=== PATIENT | female | born 1995 | race Caucasian/White ===

== ENCOUNTER 2017-06-11 20:21 | Emergency (ER) | payer SELFPAY ==
[2017-06-11 20:22] VITALS: BP 148/85; PULSE 87; RESP 17; TEMP 36.4; O2SAT 99; BMI 23.0
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
--- NOTE | 2017-06-11 21:23 | ED.VISSUMM ---
- ER Visit Summary Date of Service: 06/11/17 Chief Complaint: Left shoulder pain History of Present Illness: The patient is a 22 F who reports intermittent pain in her left shoulder for the past 6 years. She gets a popping sensation. She denies any known injury and denies any known prior dislocations. She denies numbness or pain radiating down her arm. She is right-hand dominant. Patient states she does not have a doctor has not seen anyone for this before. Physical Examination: Vital signs are gross unremarkable. Head neck examination is unremarkable. Heart is regular rate and rhythm. Lung sounds are clear. Left upper extremity examination reveals mild tenderness along the glenohumeral joint itself. She has full range of motion without difficulty. She has strong distal pulses and normal sensation. Test Results: Shoulder x-rays are obtained and unremarkable. Emergency Department Course and Treatment: Patient be referred to orthopedics for follow-up as needed. She may require injections or further imaging. At this time I encouraged her to take Tylenol or ibuprofen [id number]. Treatment Plan: [] Disposition: Discharge Impression: Chronic left shoulder pain This note was generated with [email or web address] dictation software. It may contain incorrect words, spelling, and punctuation that were not noted in review of the chart prior to signing ED Disposition - Plan for ED Patient: Disposition: Home or Assisted Living Chief Complaint: Upper Extremity Injury Instructions: ED Shoulder Pain [facility] Referrals: Buffy Beltre DO [STAFF PHYSICIAN] - As soon as possible
== END 2017-06-11 21:32 | disposition home or self-care (01) ==
PROVIDERS: Emergency Provider Emergency Medicine
DX: M25.512 Pain in left shoulder (principal); G89.29 Other chronic pain; Z72.0 Tobacco use
CPT/HCPCS: 73030; 99282

== ENCOUNTER → 2017-06-21 10:08 | Outpatient (CLI) | payer SELFPAY ==
--- NOTE | 2017-06-21 10:09 | RAD_ITS ---
STUDY: X-RAY - LEFT SHOULDER REASON FOR EXAM: Shoulder pain. TECHNIQUE: A single axillary view of the shoulder. COMPARISON: Radiographs 06/11/2017. FINDINGS: Normal glenohumeral articulation. Normal acromion. Normal humeral head and visualized proximal humerus. The soft tissue structures are unremarkable. RAD/Shoulder min 2 Views IMPRESSION: Normal axillary x-ray examination of the left shoulder. Electronically Signed: Toy Cuevas MD at 10:49 EDT Tel , Service support ,
== END ==
PROVIDERS: Visit Provider Orthopaedic Surgery
DX: M25.512 Pain in left shoulder (principal)
CPT/HCPCS: 73030

== ENCOUNTER 2017-07-21 00:24 | Emergency (ER) | payer SELFPAY ==
[2017-07-21 00:25] VITALS: BP 131/84; PULSE 103; RESP 16; TEMP 36.9; O2SAT 95; BMI 21.9
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
[2017-07-21] MEDS: Acetaminophen 500 MG Tablet 1000 MG PO (01:10)
[2017-07-21] MEDS: Diphth,Pertuss(Acell),Tet Vac 0.5 ML Vial IM (01:10)
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
== END 2017-07-21 02:09 | disposition home or self-care (01) ==
PROVIDERS: Emergency Provider Emergency Medicine
DX: S00.83XA Contusion of other part of head, initial encounter (principal); S00.81XA Abrasion of other part of head, initial encounter; S00.31XA Abrasion of nose, initial encounter; S40.812A Abrasion of left upper arm, initial encounter; S80.812A Abrasion, left lower leg, initial encounter; Z23 Encounter for immunization; Z72.0 Tobacco use; V87.8XXA Person injured in other specified noncollision transport accidents involving motor vehicle (traffic), initial encounter; Y93.I9 Activity, other involving external motion; Y92.89 Other specified places as the place of occurrence of the external cause; Y99.8 Other external cause status
CPT/HCPCS: 70450; 90715; 99282

== ENCOUNTER 2017-07-22 17:20 | Emergency (ER) | payer SELFPAY ==
[2017-07-22 17:21] VITALS: BP 142/79; PULSE 85; RESP 16; TEMP 36.8; O2SAT 97; BMI 22.9
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
--- NOTE | 2017-07-22 19:17 | ED.DEP ---
ED Disposition - Plan for ED Patient: Chief Complaint: Head Injury Instructions: ED Contusion Face, ED Sprain Strain Neck Referrals: Care Physician,No Primary [Primary Care Provider] - Shari Dumas DO [STAFF PHYSICIAN] - 3-5 Days
[2017-07-22 19:22] VITALS: BP 136/76; PULSE 82; RESP 18; O2SAT 99
== END 2017-07-22 19:23 | disposition home or self-care (01) ==
LOC: ED 17:59
PROVIDERS: Emergency Provider Emergency Medicine
DX: S16.1XXD Strain of muscle, fascia and tendon at neck level, subsequent encounter (principal); S00.12XD Contusion of left eyelid and periocular area, subsequent encounter; S00.11XD Contusion of right eyelid and periocular area, subsequent encounter; S09.90XA Unspecified injury of head, initial encounter; Z72.0 Tobacco use; V89.0XXD Person injured in unspecified motor-vehicle accident, nontraffic, subsequent encounter
CPT/HCPCS: 70486; 72040; 99282

== ENCOUNTER 2018-06-24 23:45 | Emergency (ER) | payer OTHER, SELFPAY ==
[2018-06-24 23:46] VITALS: BP 140/88; PULSE 100; RESP 16; TEMP 37.3; BMI 22.1
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
--- NOTE | 2018-06-25 00:31 | ED.DEP ---
ED Disposition - Plan for ED Patient: Disposition: Home or Assisted Living Instructions: ED Fx Foot Referrals: Rich Ellis DO [STAFF PHYSICIAN] - As soon as possible Additional Instructions: Ice and elevate right foot to decrease pain and swelling. Tylenol Motrin for pain. Crutches no weightbearing at this time. Follow-up with orthopedic doctor of your choice.
--- NOTE | 2018-06-25 00:44 | ED.RN ---
PATIENT HAS CRUTCHES AT HOME.
== END 2018-06-25 00:45 | disposition home or self-care (01) ==
PROVIDERS: Emergency Provider Emergency Medicine
DX: S92.354A Nondisplaced fracture of fifth metatarsal bone, right foot, initial encounter for closed fracture (principal); Z72.0 Tobacco use; X58.XXXA Exposure to other specified factors, initial encounter; Y93.01 Activity, walking, marching and hiking; Y92.89 Other specified places as the place of occurrence of the external cause; Y99.8 Other external cause status
CPT/HCPCS: 73630; 99283

== ENCOUNTER 2018-07-04 11:38 | Day surgery (SDC) | payer OTHER, SELFPAY ==
--- NOTE | 2018-06-30 16:50 | RAD_ITS ---
STUDY: X-RAY CHEST REASON FOR EXAM: Female, 23 years old. Pre-op TECHNIQUE: PA and lateral views of the chest. COMPARISON: None. FINDINGS: There is a subtle 3.7 mm nodular density in the left apex. There is no demonstrated pleural abnormality. Normal size heart. Normal mediastinum and gonzález. Normal visualized pulmonary arteries. Normal visualized aortic arch and descending thoracic aorta. Normal visualized thoracic spine. Normal visualized ribs, clavicles, and shoulders. There is no demonstrated abnormality of the visualized soft tissue structures of the upper abdomen. RAD/Chest PA and Lateral IMPRESSION: Little nodular density left apex measuring 3.7 mm. This may represent summation of shadows however recommend follow-up noncontrast chest CT for clarification. Otherwise, No evidence of focal consolidation. Electronically Signed: Tasha Zepeda MD at 16:59 EDT Tel , Service support ,
[2018-07-04 11:52] VITALS: BP 135/84; PULSE 97; RESP 16; TEMP 37.7; O2SAT 100; BMI 21.5
[2018-07-04] MEDS: Cefazolin 2 GM in 0.9% Normal Saline 100 ML IV (12:30)
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
[2018-07-04] MEDS: Bupivacaine Mpf 0.5% 30 ML VIAL (13:30)
[2018-07-04 13:47] VITALS: BP 135/84; BP 141/68; PULSE 77; RESP 16; TEMP 36.8; O2SAT 100
[2018-07-04 14:00] VITALS: BP 116/76; BP 135/84; PULSE 60; RESP 16; O2SAT 100
--- NOTE | 2018-07-04 14:00 | DCINST_ITS ---
Discharge Activity: May Not Drive, May not drive while taking narcotic pain medications., May Not Shower, Use Walker, Use Crutches Ice area for (Minutes): 20 - apply ice behind right knee 20 minutes of each hour while awake Weight Bearing Status: No weight bearing Keep extremity elevated above heart level: Operative Extremity Call your doctor if your incision/area has: Sudden Increased Bleeding Call your doctor if you observe: Fever of 101 or Higher, Shortness of breath, Dizziness, Chest pain, Increased palpitations (irregular heartbeat), Calf discomfort, Uncontrolled pain Cleanse incision/area with: Keep Dressing Clean & Dry Allergies/Adverse Reactions: Allergies No Known Allergies Allergy (Verified 07/03/18 08:38) Medications to take at Discharge traMADol [Ultram] 50 mg PO Q4H PRN PRN 7 Days #28 tab 07/04/18 The following prescriptions were given: traMADol [Ultram] 50 mg PO Q4H PRN PRN 7 Days #28 tab PRN Reason: pain Orders to be completed after discharge: ,Urine Time Frame: 07/04/18, Location: Laboratory Primary Care Physician: Maria Suazo MD [Primary Care Provider] - Please follow up with your Primary Care Physician in: Please follow up with your PCP regarding abnormal result of chest xray Test Results: Test results from this visit will be discussed in further detail at your follow- up appointment, if applicable. Please Follow Up With: Kristi Ramsay DPM - Please follow up at your previously scheduled post operative appointment. Proposed Discharge Date: 07/04/18
--- NOTE | 2018-07-04 14:00 | PCM.OPRPT ---
Report of Operation Date of Procedure: 07/04/18 Pre-Operative Diagnosis: R 5th metatarsal Suazo Fracture Post-Operative Diagnosis: same Surgery/Procedure Performed:: R ORIF 5th metatarsal Suazo fracture Description of Surgical Findings:: see dictation head strength and conditioning coach: Diana Ramos Type of Anesthesia:: General, Local Estimated Blood Loss (mL): minimal Description of Procedure: Indications: Pt is a 23 yo F who sustained a R 5th metatarsal Suazo fracture after twisting her foot on the curb. She presented to my office last week and nonoperative and operative options were discussed with her and her cousin. She elected surgical intervention. We discussed at length the increased risks of post operative complications and overall negative impact to her health is she continues to smoke. All risks, complications, and alternatives were discussed with the patient, and the patient signed an informed consent. No guarantees were given. Procedure: On 07/04/2018, Mya Rubio was visually and verbally identified in the preoperative holding area. The consent form was again reviewed with the patient, as were all risks, complications, and alternatives and the patient wished to proceed with the proposed surgery. The right foot was marked as the correct operative extremity. The patient was brought to the operating room and placed on the operating room table in the lazy lateral position. Circumferential lead apron was placed. After induction by anesthesia, a surgical time out was performed and all present were in agreement. a pneumatic thigh tourniquet was then placed. At this time the right lower extremity was prepped and draped in the usual sterile fashion. after exsanguination with an esmarch the tourniquet was inflated to 300 mmHg. At this time attention was directed to the R lateral midfoot, using intraoperative fluoroscopy the planes of the 5th metatarsal were identified. A stab incision was made and using Cleo's Suazo fracture set, a 5.0 x 42 mm cannulated screw was placed per housekeeper manager guidelines. On intra operative fluoroscopy good compression of the fracture was noted and alignment of the 5th metatarsal was maintained. Temporary guide wire was removed. The stab incision was flushed with normal sterile saline. 3.0 prolene was used for skin closure. 10 cc of 0.5% marcaine plain was injected at the surgical site. Adaptic and dry, sterile dressings were applied to the stab incision. a multilayer compressive dressing and well padded posterior splint was applied. Total tourniquet time was 35 minutes with immediate capillary refill noted to all digits upon deflation. The patient tolerated the procedure and anesthesia well. The patient was then transported to the postanesthesia care unit by a member of the anesthesia team and myself with all vital signs stable and neurovascular status of the right lower extremity equal to pre-operative levels. At the end of the case all sponge, needle and instrument counts were found to be correct. Grafts/Implants Used: [place] 5.0 cannulated screw - Complications none - Admit VTE Documentation VTE Present on Admission: No VTE Mechan Device Prophylaxis: SCD's, Knee High [place] Hose VTE Pharm Prophylaxis ordered?: Yes
[2018-07-04] MEDS: Ketorolac 15 MG/ML Vial IV (14:06)
--- NOTE | 2018-07-04 14:10 | RAD_ITS ---
STUDY: X-RAY - RIGHT FOOT CLINICAL: ORIF of fifth metatarsal fracture. TECHNIQUE: 3 view(s) of the foot. COMPARISON: Radiographs 06/25/2018. FINDINGS: Normal talus, calcaneus, and tarsal bones. Normal visualized subtalar, talonavicular, calcaneocuboid, tarsal and tarsometatarsal articulations. There is an orthopedic screw transfixing a transverse fracture of the fifth metatarsal base in anatomic alignment and position. Normal metatarsophalangeal joint of the great toe. Normal tibial and fibular sesamoid bones. Normal interphalangeal joint of the great toe. There is a nonacute fracture of the medial base of the first distal phalanx with mild adjacent sclerosis. Normal second through fifth metatarsophalangeal joints. Normal interphalangeal joints and phalanges of the lesser toes. There is an overlying cast. RAD/Foot min 3 Views IMPRESSION: ORIF of fifth metatarsal base fracture in anatomic alignment and position. Electronically Signed: Toy Cuevas MD at 15:27 EDT Tel , Service support ,
--- NOTE | 2018-07-04 14:12 | OP.PCM_ITS ---
Report of Operation Date of Procedure: 07/04/18 Pre-Operative Diagnosis: R 5th metatarsal Suazo Fracture Post-Operative Diagnosis: same Surgery/Procedure Performed:: R ORIF 5th metatarsal Suazo fracture Description of Surgical Findings:: see dictation migration specialist: Diana Ramos Type of Anesthesia:: General, Local Estimated Blood Loss (mL): minimal Description of Procedure: Indications: Pt is a 23 yo F who sustained a R 5th metatarsal Suazo fracture after twisting her foot on the curb. She presented to my office last week and nonoperative and operative options were discussed with her and her cousin. She elected surgical intervention. We discussed at length the increased risks of post operative complications and overall negative impact to her health is she continues to smoke. All risks, complications, and alternatives were discussed with the patient, and the patient signed an informed consent. No guarantees were given. Procedure: On 07/04/2018, Mya Rubio was visually and verbally identified in the preoperative holding area. The consent form was again reviewed with the patient, as were all risks, complications, and alternatives and the patient wished to proceed with the proposed surgery. The right foot was marked as the correct operative extremity. The patient was brought to the operating room and placed on the operating room table in the lazy lateral position. Circumferential lead apron was placed. After induction by anesthesia, a surgical time out was performed and all present were in agreement. a pneumatic thigh tourniquet was then placed. At this time the right lower extremity was prepped and draped in the usual sterile fashion. after exsanguination with an esmarch the tourniquet was inflated to 300 mmHg. At this time attention was directed to the R lateral midfoot, using intraoperative fluoroscopy the planes of the 5th metatarsal were identified. A stab incision was made and using Cleo's Suazo fracture set, a 5.0 x 42 mm cannulated screw was placed per nail tech guidelines. On intra operative fluoroscopy good compression of the fracture was noted and alignment of the 5th metatarsal was maintained. Temporary guide wire was removed. The stab incision was flushed with normal sterile saline. 3.0 prolene was used for skin closure. 10 cc of 0.5% marcaine plain was injected at the surgical site. Adaptic and dry, sterile dressings were applied to the stab incision. a multilayer compressive dressing and well padded posterior splint was applied. Total tourniquet time was 35 minutes with immediate capillary refill noted to all digits upon deflation. The patient tolerated the procedure and anesthesia well. The patient was then transported to the postanesthesia care unit by a member of the anesthesia team and myself with all vital signs stable and neurovascular status of the right lower extremity equal to pre-operative levels. At the end of the case all sponge, needle and instrument counts were found to be correct. Grafts/Implants Used: [place] 5.0 cannulated screw - Complications none - Admit VTE Documentation VTE Present on Admission: No VTE Mechan Device Prophylaxis: SCD's, Knee High [place] Hose VTE Pharm Prophylaxis ordered?: Yes
[2018-07-04 14:15] VITALS: BP 132/79; BP 135/84; PULSE 66; RESP 16; TEMP 36.8; O2SAT 100
[2018-07-04 14:52] VITALS: BP 114/67; BP 135/84; PULSE 78; RESP 16; TEMP 36.6; O2SAT 100
== END 2018-07-04 14:59 | disposition home or self-care (01) ==
LOC: SDC 11:38 → AC 11:39
PROVIDERS: Family Provider Family Medicine; PCP Family Medicine; Referring Provider Podiatrist Foot & Ankle Surgery; Visit Provider Podiatrist Foot & Ankle Surgery
PROC: (CPT 28485; principal; 2018-07-04 12:55)
DX: S92.354A Nondisplaced fracture of fifth metatarsal bone, right foot, initial encounter for closed fracture (principal); R03.0 Elevated blood-pressure reading, without diagnosis of hypertension; F17.210 Nicotine dependence, cigarettes, uncomplicated; X50.1XXA Overexertion from prolonged static or awkward postures, initial encounter; Y93.01 Activity, walking, marching and hiking; Y92.480 Sidewalk as the place of occurrence of the external cause; Y99.8 Other external cause status
CPT/HCPCS: 01480; 28485; 71046; 73630; 76000; C1713; J7120; J2405

== ENCOUNTER 2020-01-09 08:41 | Emergency (ER) | payer OTHER, SELFPAY ==
[2020-01-09 08:42] VITALS: BP 150/88; PULSE 90; RESP 17; TEMP 36.7; O2SAT 100; BMI 19.4
[2020-01-09 09:01] VITALS: BP 126/89; O2SAT 100
--- NOTE | 2020-01-09 09:04 | ED.DCSUM_ITS ---
- ER Visit Summary Date of Service: 01/09/20 Chief Complaint: Sent in by nurse practitioner for elevated hemoglobin A1c drawn yesterday. History of Present Illness: The patient is a 24 F past medical history of depression on an antidepressant. No other signet past medical history. No family history of diabetes that the patient is aware of. She does state that she is in increased thirst lately. And urinary frequency without dysuria. She denies any vaginal bleeding or discharge. Last menstrual period was last month. Does not believe she is . States today she did have nausea vomiting x3. No fever or chills. No abdominal pain. No chest pain or shortness of breath. Patient states that her nurse practitioner aaron a hemoglobin A1c on her it was elevated so they sent her to the ER to be evaluated. She denies any family history of diabetes. Physical Examination: Well-appearing young female vital signs stable afebrile. Pulse ox are percent on room air no signs hypoxia. H EENT exam unremarkable. Moist mucous membranes. Neck nontender no lymphadenopathy. Lungs clear to auscultation bilaterally. Heart regular rhythm rate about 90 no murmur. Abdomen soft nontender normal bowel sounds no peritoneal signs. Extremities moves all 4. Calves nontender without edema or cords. Normal motor strength and sensation. Normal range of motion. Back nontender. Skin unremarkable. Neurologically she is awake alert with no focal motor deficits. Test Results: CBC white count 8. Hemoglobin 13. No bands chemistries sodium 131 consistent with elevated blood sugar 434. Normal BUN and creatinine. Normal gap of 4. UA negative except for glucose. No signs of infection. Ketones negative. Initial BG T was 443 after a liter of fluid it was 325. Emergency Department Course and Treatment: Suspect newly diagnosed diabetes. Patient is having polyuria and polydipsia. Screening labs are being obtained along with urinalysis. She will be given a liter of normal saline. After the initial blood sugar patient was also ordered a dose of oral Metformin. Treatment Plan: Metformin twice daily. Glucometer. Follow-up with your primary care provider. Watch her blood sugars closely. Return if feeling worse. Disposition: Discharge Impression: New onset newly diagnosed diabetes Acute hyperglycemia History of depression This note was generated with [employer] software. It may contain incorrect words, spelling, and punctuation that were not noted in review of the chart prior to signing ED Disposition - Plan for ED Patient: Referrals: PodlogarMaria NP, EP[facility] WILLOW SPECIALIST-C [Primary Care Provider] -
[2020-01-09 09:16] LABS: Bedside Glucose 443 mg/dL (70-110)
[2020-01-09] MEDS: 0.9% Normal Saline 1,000 ML 1000 ML IV (09:21)
[2020-01-09 09:32] LABS: Basophil# 0.04 X10^3/uL; Basophil% 0.5 % (0-1); Eosinophil# 0.08 X10^3/uL; Eosinophils% 0.9 % (0-5); Hematocrit 40.3 % (37-47); Hemoglobin 13.5 g/dL (12.0-15.0); Lymphocyte % 21.8 % (19-41); Mean Corp Hgb Conc 33.5 g/dL (32-36); Mean Corpuscular Hgb 28.4 pg (27.0-32.0); Mean Corpuscular Volume 84.8 fL (81-99); Mean Platelet Vol. 11.8 fl (6.2-12.0); NRBC Flagged by Analyzer 0 % (0-5); Neutrophil # 5.98 X10^3/uL (2.7-7.7); Neutrophil % 68.5 % (47-70); POSITIVE MORPHOLOGY YES; Platelet Count 228 K/mm3 (150-450); RBC Distribution Width CV 12.5 % (11.6-14.6); RBC Distribution Width SD 38.7 fl (35.1-43.9); Red Blood Count 4.75 M/mm3 (4.2-5.4); White Blood Count 8.7 K/mm3 (4.4-11.0)
[2020-01-09 09:36] LABS: Differential Indicated SCAN CRITERIA MET
[2020-01-09 09:43] LABS: Anion Gap 4 (5-15); BUN 11 mg/dL (7-18); BUN/Creat Ratio 13.7 RATIO (10-20); Calcium,Total 9.2 mg/dL (8.5-10.1); Chloride 97 mmol/L (98-107); EST Glomerular Filtration Rate 93 mL/min (>60); Est Glom Filt Rate - Afr Amer 112 mL/min (>60); Estimated Creatinine Clearance 82.51 ml/min; Glucose 434 mg/dL (74-106); Potassium 3.6 mmol/L (3.5-5.1); Sodium Level 131 mmol/L (136-145)
[2020-01-09 09:57] LABS: Internal QC Validated? YES +Cl - CLEAR BKGD; Pregnancy, Serum, hCG Quali. NEGATIVE Negative
[2020-01-09 11:04] LABS: Bacteria 0 SEEN /hpf (None Seen); Mucous, Urine 0 SEEN /hpf (<or=2+); Red Blood Cells-Urine 0 SEEN /hpf (0-5); White Blood Cells 0 SEEN /hpf (0-5)
[2020-01-09 11:06] LABS: Bedside Glucose 325 mg/dL (70-110)
[2020-01-09 11:06] LABS: Color, Urine Yellow (Yellow); Glucose, Dipstick 1000 mg/dl (Normal); Ketone-Dipstick 5 mg/dl (Negative); Leukocyte Esterase-Dipstick Negative /ul (Negative); Nitrite-Dipstick Negative (Negative); Occult Blood-Urine Negative /ul (Negative); Protein-Dipstick Negative (Negative); Specific Gravity, Urine 1.005 (1.002-1.030); Urine Bilirubin Dipstick Negative (Negative); Urine Clarity Sl. Cloudy (Clear); Urine Urobilinogen Normal (Normal)
[2020-01-09 11:17] VITALS: BP 114/79; PULSE 64; RESP 14; O2SAT 100
[2020-01-09 11:19] LABS: Squamous Epithelial Cells - UA 0-5 SEEN /hpf (5-10)
--- NOTE | 2020-01-09 11:42 | DCINST.ED_ITS ---
ED Disposition - Plan for ED Patient: Disposition: Home or Assisted Living Instructions: ED Diabetes Overview, ED DIET Diabetic, ED Hyperglycemia New Susp Diabetes Prescriptions: metFORMIN (XR) [Glucophage Xr] 500 mg PO DAILY #30 tab Prescription Printed Referrals: VanialogMaria cisse NP, CREDIT COLLECTIONS ANALYST-C [Primary Care Provider] - Additional Instructions: Rest. It appears that you have have new onset diabetes. You have probably had it for some time and did not realize it. Watch her blood sugars and check them at least 3 times a day. In the morning in the mid afternoon and before bedtime. You will be started on medication Metformin which she can take in the morning you will take it once a day. When you see your primary care provider they may change the medication or change the dosing of it. Currently you only take it once a day.
[2020-01-09] MEDS: metFORMIN (XR) 500 MG Tablet PO (12:13)
[2020-01-09 12:14] VITALS: BP 102/69; PULSE 70; RESP 14; O2SAT 99
== END 2020-01-09 12:26 | disposition home or self-care (01) ==
PROVIDERS: Emergency Provider Emergency Medicine; PCP Nurse Practitioner Primary Care
DX: E11.65 Type 2 diabetes mellitus with hyperglycemia (principal); F17.200 Nicotine dependence, unspecified, uncomplicated
CPT/HCPCS: 80048; 81001; 82009; 82962; 84703; 85025; 96360; 96361; 99284; J7030

== ENCOUNTER 2020-01-14 19:18 | Emergency (ER) | payer OTHER, SELFPAY ==
[2020-01-14 19:20] VITALS: BP 134/72; PULSE 84; RESP 17; TEMP 35.8; O2SAT 100; BMI 19.3
[2020-01-14 19:31] LABS: Bedside Glucose > 500 mg/dL (70-110)
[2020-01-14 19:48] LABS: Absolute Lymphocyte Count 1.97 X10^3/uL (0.83-4.51); Absolute Neutrophil Count 5.7 X10^3/uL (2.0-7.7); Basophil# 0.04 X10^3/uL; Basophil% 0.5 % (0-1); Eosinophil# 0.03 X10^3/uL; Eosinophils% 0.4 % (0-5); Hematocrit 43.2 % (37-47); Lymphocyte # 1.97 X10^3/ul (4.0); Lymphocyte % 23.8 % (19-41); Mean Corp Hgb Conc 32.4 g/dL (32-36); Mean Corpuscular Hgb 28.1 pg (27.0-32.0); Mean Corpuscular Volume 86.7 fL (81-99); Mean Platelet Vol. 11.5 fl (6.2-12.0); Monocyte# 0.51 X10^3/uL; Monocyte% 6.2 % (0-10); NRBC Flagged by Analyzer 0 % (0-5); Neutrophil # 5.71 X10^3/uL (2.7-7.7); Neutrophil % 68.9 % (47-70); POSITIVE MORPHOLOGY YES; Platelet Count 277 K/mm3 (150-450); RBC Distribution Width CV 13.2 % (11.6-14.6); RBC Distribution Width SD 41.7 fl (35.1-43.9); Red Blood Count 4.98 M/mm3 (4.2-5.4); White Blood Count 8.3 K/mm3 (4.4-11.0)
[2020-01-14 19:57] LABS: Bacteria 0 SEEN /hpf (None Seen); Mucous, Urine 0 SEEN /hpf (<or=2+); Red Blood Cells-Urine 0 SEEN /hpf (0-5); White Blood Cells 0 SEEN /hpf (0-5)
[2020-01-14 20:02] LABS: Color, Urine Yellow (Yellow); Glucose, Dipstick 1000 mg/dl (Normal); Ketone-Dipstick Negative (Negative); Leukocyte Esterase-Dipstick Negative /ul (Negative); Nitrite-Dipstick Negative (Negative); Occult Blood-Urine Negative /ul (Negative); Protein-Dipstick 15 mg/dl (Negative); Urine Bilirubin Dipstick Negative (Negative); Urine Clarity Sl. Cloudy (Clear); Urine Urobilinogen Normal (Normal); Urine pH 6.5 (5.0 - 8.0)
[2020-01-14 20:04] LABS: Differential Indicated SCAN CRITERIA MET
[2020-01-14] MEDS: 0.9% Normal Saline 1,000 ML 999 ML IV ×2 (20:13→20:25)
[2020-01-14 20:26] LABS: ALB/GLOB Ratio 1.1 RATIO (0.9-2.4); AST(SGOT) 9 U/L (15-37); Alanine Aminotransfer ALT/SGPT 18 U/L (13-56); Albumin, Serum 4.2 g/dL (3.2-5.0); Alkaline Phosphatase 151 U/L (45-117); Anion Gap 6 (5-15); BUN 15 mg/dL (7-18); BUN/Creat Ratio 15.7 RATIO (10-20); Calcium,Total 9.4 mg/dL (8.5-10.1); Chloride 99 mmol/L (98-107); Creatinine, Serum 0.96 mg/dL (0.55-1.02); EST Glomerular Filtration Rate 76 mL/min (>60); Est Glom Filt Rate - Afr Amer 92 mL/min (>60); Estimated Creatinine Clearance 68.61 ml/min; Globulin 3.9 g/dL (2.2-4.2); Glucose 596 mg/dL (74-106); Potassium 4.2 mmol/L (3.5-5.1); Protein, Total 8.1 g/dL (6.4-8.2); Sodium Level 133 mmol/L (136-145)
[2020-01-14 20:27] LABS: Squamous Epithelial Cells - UA 0-5 SEEN /hpf (5-10)
--- NOTE | 2020-01-14 20:27 | ED.DCSUM_ITS ---
History of Present Illness Chief Complaint: Hyperglycemia Informant: Patient Onset: Days Context: Gradual Onset Timing: Continuous Current Severity: Moderate Maximum Severity: Moderate Narrative: The patient is a 24-year-old female who presents to the emergency department for elevated blood sugar. The patient was recently diagnosed with diabetes. She was just started on insulin. She states that she takes 14 units at night. She states when she wakes up, her blood sugar is in the 100 range. However, throughout the day when she is eating, her blood sugar just reads high. She does admit to increased thirst and urination. She denies any fevers or chills. This is the first time that she has been testing her blood sugar. She states she is otherwise been in her normal state of health. Prior similar symptoms: Yes Recent Illness/Hospitalization: No Past Medical History - Allergies and Home Meds Allergies/Adverse Reactions: Allergies No Known Allergies Allergy (Verified 01/14/20 19:19) Primary Care Physician: Maria Raygoza NP, REVERSE ENGINEER-C [Primary Care Provider] - Prior records reviewed: Yes Past Medical History: - - Diabetes Surgical History: noncontributory Smoking Status: Current every day smoker Review of Systems General: Denies: Chills, Fever, Sweats Eyes: Denies: Visual changes - bilaterally, Diplopia ENT: Denies: Rhinorrhea, Sore throat Cardiovascular: Denies: Chest pain, Palpitations Respiratory: Denies: Dyspnea, Cough, Dyspnea on exertion Gastrointestinal: Reports: Nausea. Denies: Abdominal pain, Vomiting, Diarrhea, Melena, Hematochezia Genitourinary: Denies: Dysuria, Hematuria, Frequency Musculoskeletal: Denies: Back pain, Extremity Pain Skin: Denies: Rash, Wounds Neurological: Denies: Headache, Weakness, Numbness Physical Exam Vital Signs/Narrative: Vital Signs Temp Pulse Resp BP Pulse Ox 01/14/20 19:20 96.5 F L 84 17 134/72 H 100 Inital Vital Signs reviewed: Yes General: Well nourished, Well developed, No Acute Distress Head: Normocephalic, Atraumatic Eyes: Perrl, EOMI ENT: Moist mucous membranes, No rhinorrhea Neck: Supple, Nontender Cardiovascular: Regular rate, Regular rhythm, No murmurs Respiratory: No distress, CTA bilaterally, Chest nontender Abdomen: Soft, Nontender, Nondistended, Normal bowel sounds Back: Nontender, Normal Inspection Extremities: Nontender, No edema Skin: Normal color, No rash Neurological: Alert, Oriented x3, Cranial nerves II-XII grossly intact, Normal Strength, Normal Sensation Psychological: Normal affect, Normal Mood Diagnostic/Tx/Re-eval Abnormal Lab Results 01/14/20 01/14/20 01/14/20 19:26 19:40 19:40 WBC 8.3 RBC 4.98 Hgb 14.0 Hct 43.2 MCV 86.7 MCH 28.1 MCHC 32.4 RDW Std Deviation 41.7 RDW Coeff of Radha 13.2 Plt Count 277 MPV 11.5 Immature Gran % (Auto) 0.200 Neut % (Auto) 68.9 Lymph % (Auto) 23.8 [place] % (Auto) 6.2 Eos % (Auto) 0.4 Baso % (Auto) 0.5 Absolute Neuts (auto) 5.7 Absolute Lymphs (auto) 1.97 Nucleated RBC % 0 Sodium 133 L Potassium 4.2 Chloride 99 Carbon Dioxide 28.0 Anion Gap 6 BUN 15 Creatinine 0.96 Estim Creat Clear Calc 68.61 Est GFR (MDRD) Af Amer 92 Est GFR (MDRD) Non-Af 76 BUN/Creatinine Ratio 15.7 Glucose 596 H* Calcium 9.4 Total Bilirubin 0.20 AST 9 L ALT 18 Alkaline Phosphatase 151 H Total Protein 8.1 Albumin 4.2 Globulin 3.9 Albumin/Globulin Ratio 1.1 Urine Color Urine Clarity Urine pH Ur Specific [place] Urine Protein Urine Glucose (UA) Urine Ketones Urine Occult Blood Urine Nitrite Urine Bilirubin Urine Urobilinogen Ur Leukocyte Esterase Urine RBC Urine WBC Ur Squamous Epith Cells Urine Bacteria Urine Mucus Acetone Level POC Glucose > 500 H* 01/14/20 01/14/20 19:40 19:46 WBC RBC Hgb Hct MCV MCH MCHC RDW Std Deviation RDW Coeff of Radha Plt Count MPV Immature Gran % (Auto) Neut % (Auto) Lymph % (Auto) [place] % (Auto) Eos % (Auto) Baso % (Auto) Absolute Neuts (auto) Absolute Lymphs (auto) Nucleated RBC % Sodium Potassium Chloride Carbon Dioxide Anion Gap BUN Creatinine Estim Creat Clear Calc Est GFR (MDRD) Af Amer Est GFR (MDRD) Non-Af BUN/Creatinine Ratio Glucose Calcium Total Bilirubin AST ALT Alkaline Phosphatase Total Protein Albumin Globulin Albumin/Globulin Ratio Urine Color Yellow Urine Clarity Sl. Cloudy Urine pH 6.5 Ur Specific [place] 1.010 Urine Protein 15 H Urine Glucose (UA) 1000 H Urine Ketones Negative Urine Occult Blood Negative Urine Nitrite Negative Urine Bilirubin Negative Urine Urobilinogen Normal Ur Leukocyte Esterase Negative Urine RBC 0 SEEN Urine WBC 0 SEEN Ur Squamous Epith Cells 0-5 SEEN Urine Bacteria 0 SEEN Urine Mucus 0 SEEN Acetone Level NEGATIVE POC Glucose - Medical Decision Making The patient presents with elevated blood sugar. She states in the morning, it is in the 100-1 50 range. However throughout the day, to 400-500. Blood sugar was obtained and read high. DKA work-up was pursued. Patient is hyperglycemic, but has a normal anion gap, no ketones, and work-up is otherwise unremarkable. I did discuss the patient with Dr. Sierra, on-call for the patient's nurse practitioner. The patient will be restarted on her Metformin. She is likely going to need to do different insulin, but Dr. Sierra recommended increasing her Metformin for the time being. The patient was given subcutaneous insulin and fluids. Once her blood sugar is back to normal, the patient will be discharged and will be seen in the office tomorrow for insulin management. Impression 1. Hyperglycemia ED Disposition - Plan for ED Patient: Instructions: ED Diabetic Hyperglycemia Referrals: Maria Raygoza NP, REVERSE ENGINEER-C [Primary Care Provider] - 1 Day Additional Instructions: Please resume your Metformin.
[2020-01-14] MEDS: Insulin Lispro 100 UNIT/ML INSULN.PEN 10 UNIT SC (21:10)
[2020-01-14 22:15] LABS: Bedside Glucose 118 mg/dL (70-110)
== END 2020-01-14 22:31 | disposition home or self-care (01) ==
LOC: ED 20:24
PROVIDERS: Emergency Provider Emergency Medicine; PCP Nurse Practitioner Primary Care
DX: E11.65 Type 2 diabetes mellitus with hyperglycemia (principal); F17.200 Nicotine dependence, unspecified, uncomplicated; Z79.4 Long term (current) use of insulin
CPT/HCPCS: 80053; 81001; 82009; 82962; 85025; 96360; 99283; J7030; A4216

== ENCOUNTER → 2023-02-21 | Outpatient (CLI) | payer MEDICAID, SELFPAY ==
[2023-02-21 10:05] LABS: Absolute Lymphocyte Count 1.56 X10^3/uL (0.83-4.51); Absolute Neutrophil Count 8.4 X10^3/uL (2.0-7.7); Basophil# 0.04 X10^3/uL; Basophil% 0.4 % (0-1); Eosinophil# 0.03 X10^3/uL; Eosinophils% 0.3 % (0-5); Hematocrit 37.6 % (37-47); Lymphocyte # 1.56 X10^3/ul (0.83-4.51); Lymphocyte % 14.6 % (19-41); Mean Corp Hgb Conc 34.6 g/dL (32-36); Mean Corpuscular Hgb 30.4 pg (27.0-32.0); Mean Corpuscular Volume 88.1 fL (81-99); Mean Platelet Vol. 10.6 fl (6.2-12.0); Monocyte# 0.59 X10^3/uL; Monocyte% 5.5 % (0-10); NRBC Flagged by Analyzer 0 % (0-5); Neutrophil # 8.43 X10^3/uL (2.7-7.7); Neutrophil % 78.8 % (47-70); Platelet Count 298 K/mm3 (150-450); Red Blood Count 4.27 M/mm3 (4.2-5.4); White Blood Count 10.7 K/mm3 (4.4-11.0)
[2023-02-21 10:42] LABS: ALB/GLOB Ratio 1.1 RATIO (0.9-2.4); AST(SGOT) 13 U/L (15-37); Alanine Aminotransfer ALT/SGPT 22 U/L (13-56); Albumin, Serum 3.9 g/dL (3.2-5.0); Alkaline Phosphatase 64 U/L (45-117); Anion Gap 7 (5-15); BUN 11 mg/dL (7-18); BUN/Creat Ratio 17.4 RATIO (10-20); Calcium,Total 9.1 mg/dL (8.5-10.1); Chloride 103 mmol/L (98-107); Creatinine, Serum 0.63 mg/dL (0.55-1.02); EST Glomerular Filtration Rate 119 mL/min (>60); Est Glom Filt Rate - Afr Amer 144 mL/min (>60); Globulin 3.4 g/dL (2.2-4.2); Glucose 118 mg/dL (74-106); Protein, Total 7.3 g/dL (6.4-8.2); Sodium Level 136 mmol/L (136-145); T4 Free Direct 0.95 ng/dL (0.76-1.46); Thyroid Stim Hormone (TSH) 1.18 uIU/mL (0.358-3.74)
[2023-02-21 10:44] LABS: Hemoglobin A1c 7.7 % (3.8-5.6)
[2023-02-21 11:12] LABS: HIV - WCH Non-Reactive (Nonreactive); Hepatitis B Surface Antigen Non-Reactive (Nonreactive); Hepatitis C Antibody Non-Reactive (Nonreactive); Rubella IgG Reactive (Nonreactive); Syphilis Antibodies Non-reactive
[2023-02-21 13:56] LABS: Protein, Urine (Random) 9.8 mg/dL (<11.9); Protein:Creat Ratio 170 mg/g CRE (0-200)
[2023-02-23 07:08] LABS: Chlamydia By Nucleic Acid AMP Negative (Negative); Gonococcus By Nucleic Acid AMP Negative (Negative)
[2023-02-25 22:24] LABS: HPV Reflexed? NOT INDICATED
== END | disposition home or self-care (01) ==
PROVIDERS: PCP Nurse Practitioner Primary Care; Referring Provider Obstetrics & Gynecology; Visit Provider Obstetrics & Gynecology
DX: O24.019 Pre-existing type 1 diabetes mellitus, in pregnancy, unspecified trimester (principal); O16.9 Unspecified maternal hypertension, unspecified trimester; Z12.4 Encounter for screening for malignant neoplasm of cervix; Z3A.00 Weeks of gestation of pregnancy not specified
CPT/HCPCS: 36415; 80053; 82570; 83036; 84156; 84439; 84443; 85025; 86703; 86762; 86780; 86803; 86850; 86900; 86901; 87086; 87340; 87491; 87591; 88175; G0145

== ENCOUNTER 2023-03-14 07:46 | Emergency (ER) | payer MEDICAID, SELFPAY ==
[2023-03-14 07:47] VITALS: BP 148/99; PULSE 96; RESP 16; TEMP 36.7; O2SAT 100; BMI 24.1
--- NOTE | 2023-03-14 08:13 | US_ITS ---
STUDY: FIRST TRIMESTER OBSTETRICAL ULTRASOUND REASON FOR EXAM: Female, 27 years old. . Bleeding. LMP: 12/16/2022 TECHNIQUE: Transabdominal scanning was performed PRIOR ULTRASOUND: None. FINDINGS: There is visualization of a single gestational sac in a normal intrauterine position. There is a visualized yolk sac. There is visualization of a live embryo. The crown-rump length (CRL) measures 5.6 cm, indicating an estimated gestational age (EGA) of 12 weeks, 1 days. The gestational sac corresponds to 11 weeks and 3 days. The sonographic age is 11 weeks and 6 days. The estimated delivery date is 09/27/2023. There is demonstrated cardiac activity with a heart rate of 166 bpm. The uterus measures 14.8 x 10.0 x 8.2 cm. There is no demonstrated uterine fibroid. The cervix is closed. The right ovary is not visualized. The left ovary measures 2.6 x 2.5 x 1.5 cm. There is no left ovarian cyst. There is no visualized left adnexal mass or complex lesion. There is no fluid in the cul de sac. US/Init OB < 14Wks US IMPRESSION: Single live intrauterine gestation, as described above. Electronically Signed: Monster Younger MD at 10:05 [facility] ,
[2023-03-14 08:48] LABS: Absolute Lymphocyte Count 1.53 X10^3/uL (0.83-4.51); Absolute Neutrophil Count 7.2 X10^3/uL (2.0-7.7); Basophil# 0.03 X10^3/uL; Basophil% 0.3 % (0-1); Eosinophil# 0.02 X10^3/uL; Eosinophils% 0.2 % (0-5); Hematocrit 40.1 % (37-47); Hemoglobin 13.7 g/dL (12.0-15.0); Lymphocyte # 1.53 X10^3/ul (0.83-4.51); Lymphocyte % 16.6 % (19-41); Mean Corp Hgb Conc 34.2 g/dL (32-36); Mean Corpuscular Hgb 29.4 pg (27.0-32.0); Mean Corpuscular Volume 86.1 fL (81-99); Mean Platelet Vol. 10.8 fl (6.2-12.0); Monocyte# 0.39 X10^3/uL; Monocyte% 4.2 % (0-10); NRBC Flagged by Analyzer 0 % (0-5); Neutrophil # 7.22 X10^3/uL (2.7-7.7); Neutrophil % 78.4 % (47-70); Platelet Count 228 K/mm3 (150-450); RBC Distribution Width CV 12.9 % (11.6-14.6); RBC Distribution Width SD 40.5 fl (35.1-43.9); Red Blood Count 4.66 M/mm3 (4.2-5.4); White Blood Count 9.2 K/mm3 (4.4-11.0)
--- NOTE | 2023-03-14 09:13 | EDS_ITS ---
HPI HPI - Female History of Present Illness Chief Complaint: Vag Bld, Preg Detail of Chief Complaint: Vaginal bleeding that started at 2 AM Informant: patient, spouse/S.O. and family Pain Pain: Negative for Pelvic Pain, Vulvar Pain or Vaginal Pain Bleeding Issue: Positive for Vaginal bleeding and Passing clots Onset: Today (0200) Context: Sudden Onset Timing: Continuous Current Severity: Heavy Maximum Severity: Heavy Associated Symptoms Associated Symptoms: Negative for Dysuria, Frequency, Urgency or Hematuria Test: Positive Sexually: Positive for Active Control: No control P: 0 Narrative Narrative: Patient is a 27-year-old G1, P0 female who was seen by Dr. Sho Justice February 21. She had an ultrasound at that time which revealed a single live intrauterine . Patient does not know blood type. Patient states she awoke with vaginal bleeding at 0200. She has passed clots. She did pass a very large clot. Patient took a picture of the clot and it was significant. She is concerned she had a miscarriage. She denies bruising easily or problems with bleeding. She denies lightheadedness. She denies headache, visual, ocular auditory symptoms. She denies chest pain, shortness of breath, dyspnea on exertion. She denies abdominal pain, nausea, vomiting or diarrhea. There is no history of STI, endometriosis or ovarian cyst. Prior similar symptoms: No Recent Illness/Hospitalization: No PFSH PFSH Medical History Diabetes type I Fracture of right foot Fracture of right wrist Hypertension Insulin pump titration Presence of insulin pump Smoker Trichomonas infection Home Medications vitamins no.163-iron bis-gly 20 mg-folate no.10 1 mg tablet (PNV Tabs 20-1) tab PO 02/18/23 [History Last Taken Unknown] subcutaneous insulin pump 02/18/23 [History Last Taken Unknown] nicotine 14 mg/24 hr daily transdermal patch 1 patch transdermal Q24H #28 ea 02/21/23 [Rx Last Taken Unknown] insulin aspart U-100 100 unit/mL subcutaneous solution (Novolog U-100 Insulin aspart) 100 unit subcut DAILY #30 mL 02/22/23 [Rx Last Taken Unknown] Allergy/AdvReac Type Severity Reaction Status Date / Time No Known Allergies Allergy Verified 03/14/23 07:47 Family History Grandmother Thyroid disorder maternal Aunt Stillbirth maternal Social History adopted: No household members: friend(s) current occupational status: employed 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 pets and animals: Yes pets and animals: dog(s) history of recent travel: No sexually active: Yes Smoking Status: Current every day smoker tobacco type: cigarettes quit status: considering quitting counseling given: counseling >3 minutes alcohol intake: never substance use type: does not use well-balanced diet: daily or most days caffeine: No eating out: rarely or never during the past year weight has: remained stable what type of physical activity do you participate in: none pinky/mandaeism: None seatbelt use: sometimes do you feel safe at home: Yes additional social history: NO SIGNIFICANT OTHER, FOB will be involved in baby's life. Laci CARVALHO ROS ED Constitutional Constitutional ED: Denies chills, fever(s), subjective or sweats Eyes Eyes: Denies blurry vision, change in vision or diplopia ENT ENT ED: Denies ear pain, rhinorrhea or sore throat Cardiovascular Cardiovascular: Denies chest pain, orthopnea, palpitations, paroxysmal nocturnal dyspnea or racing heartbeat Respiratory/Chest Respiratory/Chest: Denies cough, dyspnea, dyspnea on exertion, orthopnea or paroxysmal nocturnal dyspnea Gastrointestinal Gastrointestinal: Denies abdominal pain, nausea or vomiting Genitourinary Genitourinary ED: Denies dysuria, hematuria or urinary frequency Musculoskeletal Musculoskeletal: Denies arthralgias, myalgias or neck pain Integumentary Denies rash Neurologic Neurologic: Denies weakness Psychiatric Psychiatric: Reports anxiety Endocrine Endocrinology: Denies heat intolerance, polydipsia or polyuria Hematologic/Lymphatic Hematologic/Lymphatic: Denies easy bleeding or easy bruising EXAM Physical Exam Const Vital Signs: 03/14/23 07:47 Temperature 98.1 F Temperature Source Temporal Pulse Rate 96 Respiratory Rate 16 Blood Pressure 148/99 H Blood Pressure Mean 115 Pulse Ox 100 Oxygen Delivery Method Room Air Positive well nourished and well developed Constitutional Narrative: Patient appears slightly upset. General Appearance ED: well developed and NAD; Negative for pallor HEENT Reports moist mucous membranes HEENT Narrative: Head is atraumatic and normocephalic. Nares are patent. Posterior pharynx is normal. Patient does have tobacco odor to her breath. Eyes PERRL and EOMs intact bilaterally General Eye ED: Negative for pale conjunctiva or scleral icterus Neck no lymphadenopathy, supple and no JVD Chest Wall inspection of chest normal and palpation of chest normal Resp normal respiratory effort and clear to auscultation bilaterally Cardio regular rate, regular rhythm, S1 normal heart sound, no murmurs and no JVD GI normal to inspection, nondistended, normoactive bowel sounds, soft to palpation, non-tender and non-distended Narrative: External genitalia normal. There is approximately 5-10 cc of blood in the vaginal vault. There appears to be tissue noted from the os. Bimanual exam reveals uterus to be 12 to 14 weeks size which is consistent with dates. External os is open to fingertip. Os does not have appearance of a nonparous cervix. There is no adnexal masses or tenderness noted. Extremity normal to inspection and full ROM Neuro oriented x3, CN's II-XII intact bilaterally and no sensory deficits noted Sensorium / Orientation: alert Psych Mood & Affect: anxious Skin no rashes or lesions noted and no wounds General Skin Exam: Negative for jaundice or pallor MDM MDM MDM Narrative Medical decision making narrative: Differential diagnosis is threatened AB versus incomplete AB versus complete AB. In light of findings on pelvic exam suspect patient has an incomplete AB. Since she does not know blood type ABO Rh was obtained. CBC was obtained for baseline H&H. Transvaginal ultrasound was ordered. Patient was made NPO. Lab Data Attestation: I reviewed the patient's lab results. Lab results narrative: CBC is normal. Labs: Laboratory Results - last 24 hr 03/14/23 08:40 WBC 9.2 RBC 4.66 Hgb 13.7 Hct 40.1 MCV 86.1 MCH 29.4 MCHC 34.2 RDW Std Deviation 40.5 RDW Coeff of Radha 12.9 Plt Count 228 MPV 10.8 Immature Gran % (Auto) 0.300 Neut % (Auto) 78.4 H Lymph % (Auto) 16.6 L [place] % (Auto) 4.2 Eos % (Auto) 0.2 Baso % (Auto) 0.3 Absolute Neuts (auto) 7.2 Absolute Lymphs (auto) 1.53 Nucleated RBC % 0 HCG, Quant 09380 H Blood Type B POSITIVE Radiography Diagnostic Testing: Clinical Impression(s) from Imaging Studies Obstetrics Ultrasound 03/14/23 08:13 IMPRESSION: Single live intrauterine gestation, as described above. Electronically Signed: Monster Younger MD at 10:05 EST Reading Location ID and State: [facility] / [place] Tel , Service support , Management Discussion w/another healthcare provider: Office Machine Servicer Apprentice (Dr. Justice was contacted regarding patient's history physical findings and ultrasound results. She is to call office tomorrow to be seen later this week.) Discharge Plan Triage Chief Complaint: Vag Bld, Preg ED Provider: Americo Greer Dx/Rx/DC Orders Clinical Impression: Miscarriage, threatened, early , Diabetes type I, Hypertension, Vaginal bleeding affecting early Instructions: ED Abdominal Pain, Early , Miscarriage Threatened Prescriptions: No Action (DME) subcutaneous insulin pump Misc See Rx Instructions .Route Rx Instructions: As directed PNV Tabs 20-1 20 mg iron- 1 mg tablet PO nicotine 14 mg/24 hr patch 24 hour 1 patch transdermal Q24H Qty: 28 1RF insulin aspart U-100 [Novolog U-100 Insulin aspart] 100 unit/mL solution 100 unit subcut DAILY Qty: 30 8RF Primary Care Provider: Maria Raygoza NP Referrals: Sho Michaud DO [Med Staff - Active Staff] - As soon as possible Maria Raygoza NP, INDUSTRIAL EDUCATION INSTRUCTOR-C [Primary Care Provider] - Disposition Disposition: Home, Self Care
[2023-03-14 11:40] VITALS: BP 130/74; PULSE 88; RESP 16; O2SAT 99
== END 2023-03-14 11:41 | disposition home or self-care (01) ==
PROVIDERS: Emergency Provider Emergency Medicine; PCP Nurse Practitioner Primary Care; Visit Provider Emergency Medicine
DX: O20.0 Threatened abortion (principal); E10.9 Type 1 diabetes mellitus without complications; O24.911 Unspecified diabetes mellitus in pregnancy, first trimester; O16.1 Unspecified maternal hypertension, first trimester; O99.331 Smoking (tobacco) complicating pregnancy, first trimester; F17.210 Nicotine dependence, cigarettes, uncomplicated; Z96.41 Presence of insulin pump (external) (internal); Z3A.00 Weeks of gestation of pregnancy not specified
CPT/HCPCS: 76801; 84702; 85025; 86900; 86901; 99284

== ENCOUNTER 2023-03-25 18:41 | Emergency (ER) | payer MEDICAID, SELFPAY ==
[2023-03-25 18:41] VITALS: BP 157/95; PULSE 110; RESP 20; TEMP 36.6; O2SAT 100; BMI 24.8
--- NOTE | 2023-03-25 18:58 | ED.RN ---
THIS RN CONTACTED PT MAIL SUPERINTENDENT OB PROVIDER. SPOKE WITH BELKIS HINDS. BELKIS INFORMED OF REASON FOR PATIENTS VISIT AND CONCERN FOR DROPPING BLOOD GLUCOSE FOR MOM AND BABY. PER BELKIS, IT WOULD BE RECOMMENDED TO TAKE HEART TONES 1 EVERY HOUR WHILE UNDER OBSERVATION.
[2023-03-25] MEDS: Dextrose 50%-Water 25 GM/50 ML DISP.SYRIN IV ×5 (19:14→22:44)
[2023-03-25 19:41] VITALS: RESP 16
--- OUTSIDE RECORDS SUMMARY | 2023-03-25 19:55 | XMS RPT_ITS | CCD ---
Demographics Address [address] [place] [address] Home Phone Mobile Phone Preferred Language en Marital Status Orthodox Affiliation Unknown
[2023-03-25 20:00] VITALS: RESP 16
--- NOTE | 2023-03-25 20:40 | ED.RN ---
pt given sandwich and drink at this time.
[2023-03-25 20:52] LABS: Bedside Glucose 96 mg/dL (74-106)
[2023-03-25 21:00] VITALS: BP 134/99
--- NOTE | 2023-03-25 21:04 | ED.RN ---
BS noted to be 74 after eating at this time.
--- NOTE | 2023-03-25 21:05 | ED.RN ---
verbal order from Dr Murillo to give another 12.5 mg of d50w. this rn asks if it would be appropriate for a drip of d5w and dr. murillo declines. will continue to monitor
[2023-03-25 21:17] LABS: Bedside Glucose 74 mg/dL (74-106)
--- NOTE | 2023-03-25 21:41 | ED.RN ---
blood glucose noted to be 77 after 1/[address] murillo notified and new order obtained for the other half of the d50w.
[2023-03-25 21:58] LABS: Bedside Glucose 77 mg/dL (74-106)
[2023-03-25 22:00] VITALS: BP 138/84; PULSE 94; RESP 16; O2SAT 97
[2023-03-25 22:31] LABS: Bedside Glucose 75 mg/dL (74-106)
[2023-03-25 22:57] LABS: Bedside Glucose 54 mg/dL (74-106)
[2023-03-25 23:00] VITALS: RESP 16
[2023-03-25 23:21] LABS: Bedside Glucose 124 mg/dL (74-106)
--- NOTE | 2023-03-25 23:26 | EX.ED.DYSGE1 ---
HPI History of Present Illness Chief Complaint: Overdose Informant: patient Narrative Narrative: Patient is 27-year-old female currently 14 weeks , G1, P0 with history of type 1 diabetes mellitus presenting for accidental insulin overdose. Patient's pump recently broke/malfunction and she had to start using subcu insulin. Since her blood sugar was around 350 so she tried to give her self 10 units of insulin aspart. She states she was not paying attention and actually gave herself 60 units. Patient states this happened at 6 PM. She then came to the ER for further evaluation. She denies any complaints at this time. She was in her usual state of health before this. She states this was an accidental overdose of her insulin. She follows with [facility]. Denies any vaginal bleeding or complaints. No other complaints or concerns at this time. [facility] Medical History Diabetes type I Fracture of right foot Fracture of right wrist Hypertension Insulin pump titration Myopia of both eyes Presence of insulin pump Smoker Trichomonas infection Home Medications vitamins no.163-iron bis-gly 20 mg-folate no.10 1 mg tablet (PNV Tabs 20-1) tab PO 02/18/23 [History Last Taken Unknown] subcutaneous insulin pump 02/18/23 [History Last Taken Unknown] nicotine 14 mg/24 hr daily transdermal patch 1 patch transdermal Q24H #28 ea 02/21/23 [Rx Last Taken Unknown] insulin aspart U-100 100 unit/mL subcutaneous solution (Novolog U-100 Insulin aspart) 100 unit subcut DAILY #30 mL 02/22/23 [Rx Last Taken Unknown] Allergy/AdvReac Type Severity Reaction Status Date / Time No Known Allergies Allergy Verified 03/25/23 10:08 Family History Grandmother Thyroid disorder maternal Aunt Stillbirth maternal Social History adopted: No household members: friend(s) current occupational status: employed 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 pets and animals: Yes pets and animals: dog(s) history of recent travel: No sexually active: Yes Smoking Status: Current every day smoker tobacco type: cigarettes quit status: considering quitting counseling given: counseling >3 minutes alcohol intake: never substance use type: does not use well-balanced diet: daily or most days caffeine: No eating out: rarely or never during the past year weight has: remained stable what type of physical activity do you participate in: none pinky/roman catholic: None seatbelt use: sometimes do you feel safe at home: Yes additional social history: NO SIGNIFICANT OTHER, FOB will be involved in baby's life. Laci Cantrell ROS ROS ED Constitutional Constitutional ED: Denies chills or fever(s) Cardiovascular Cardiovascular: Denies chest pain Respiratory/Chest Respiratory/Chest: Denies cough Gastrointestinal Gastrointestinal: Denies nausea or vomiting Musculoskeletal Musculoskeletal: Denies arthralgias or myalgias Integumentary Denies rash Neurologic Neurologic: Denies headache(s) EXAM Physical Exam Const Vital Signs: 03/25/23 18:41 03/25/23 18:45 03/25/23 19:41 Temperature 97.8 F Temperature Source Temporal Pulse Rate 110 H Respiratory Rate 20 H 16 Respiratory Effort Normal Non-Labored Respiratory Pattern Normal Blood Pressure 157/95 H Blood Pressure Mean 115 Pulse Ox 100 Oxygen Delivery Method Room Air 03/25/23 20:00 03/25/23 21:00 03/25/23 22:00 Temperature Temperature Source Pulse Rate 94 Respiratory Rate 16 16 Respiratory Effort Respiratory Pattern Blood Pressure 134/99 H 138/84 H Blood Pressure Mean 110 102 Pulse Ox 97 Oxygen Delivery Method Room Air 03/25/23 23:00 03/26/23 00:00 Temperature Temperature Source Pulse Rate Respiratory Rate 16 18 Respiratory Effort Respiratory Pattern Blood Pressure Blood Pressure Mean Pulse Ox Oxygen Delivery Method Positive well nourished and well developed General Appearance ED: well developed and NAD HEENT Reports moist mucous membranes Eyes PERRL Neck supple Chest Wall inspection of chest normal and palpation of chest normal Resp normal respiratory effort and clear to auscultation bilaterally Cardio regular rate, regular rhythm and no murmurs GI normal to inspection, nondistended, normoactive bowel sounds and non-tender Extremity normal to inspection Neuro oriented x3 Sensorium / Orientation: alert Motor Exam: Negative for general weakness Psych mental status grossly normal Skin no rashes or lesions noted and no wounds MDM MDM MDM Narrative Medical decision making narrative: Evaluated for accidental insulin overdose. Does have taking 10 units of insulin aspart checks and took 60 units subcu. Nursing staff spoke with OB as she is 14 weeks . They recommended heart tones every hour but no other recommendations at this time besides monitoring the mother's glucose. Initial heart tones 152 in the ER. Patient not having any symptoms at this time. Blood sugar does not drop and she is given multiple aliquots of D50. Spoke with pharmacy who confirmed that peak onset is 45 to 50 minutes from time of injection and duration is 3 to 5 hours. Will monitor patient's till midnight which is the 5-hour eleno and as long as her blood sugar remained stable after that point can be discharged home. Patient is otherwise asymptomatic and has no complaints. She is eating and drinking in the ER. Patient does require multiple aliquots of D50 at 12.5 mg while in the emergency room to maintain her blood sugar. She remains asymptomatic except for the one time her blood sugar dropped to 54. Because of the short half-life I do not think she requires admission for greater than 24 hours of monitoring. At the 5-hour eleno patient's blood sugar is now mildly uptrending and stable. Will be discharged home with return precautions. She is comfortable this plan of care. Counseled on making sure that she is using the right amount of insulin. She verbalizes agreement nursing of this plan. Discharged home with significant other. Lab Data Attestation: I reviewed the patient's lab results. Labs: Laboratory Results - last 24 hr 03/25/23 03/25/23 03/25/23 20:34 20:59 21:36 POC Glucose 96 74 77 03/25/23 03/25/23 03/25/23 22:13 22:39 23:03 POC Glucose 75 54 L 124 H 03/25/23 03/25/23 03/26/23 23:26 23:58 00:27 POC Glucose 95 113 H 163 H Critical Care Time Critical Care Time: Yes Critical care time (excluding procedures): 30-74 minutes (35), Discussing w/Patient &/or Family/Applications Specialist and Performing Direct Patient Care at Bedside (Frequent blood glucose checks and intervention for hypoglycemia) Discharge Plan Triage Chief Complaint: Overdose ED Provider: Radha Guzman Dx/Rx/DC Orders Clinical Impression: Hypoglycemia due to insulin, Accidental overdose of insulin Instructions: ED Diabetic Insulin Reaction Prescriptions: No Action (DME) subcutaneous insulin pump Misc See Rx Instructions .Route Rx Instructions: As directed PNV Tabs 20-1 20 mg iron- 1 mg tablet PO nicotine 14 mg/24 hr patch 24 hour 1 patch transdermal Q24H Qty: 28 1RF insulin aspart U-100 [Novolog U-100 Insulin aspart] 100 unit/mL solution 100 unit subcut DAILY Qty: 30 8RF Primary Care Provider: Maria Raygoza NP Referrals: Maria Raygoza NP, POLITICAL SCIENCE FACULTY MEMBER-C [Primary Care Provider] - Activity Restrictions/Additional Instructions: The insulin she be out of your system at this point. Please be very careful when giving yourself subcutanious insulin. Return to the ER if you have any further questions or concerns. Disposition Disposition: Home, Self Care Discharge Date/Time: 03/26/23 00:58
[2023-03-25 23:44] LABS: Bedside Glucose 95 mg/dL (74-106)
[2023-03-26] VITALS: RESP 18
[2023-03-26 00:15] LABS: Bedside Glucose 113 mg/dL (74-106)
[2023-03-26 00:46] LABS: Bedside Glucose 163 mg/dL (74-106)
[2023-03-26 02:09] LABS: Bedside Glucose 128 mg/dL (74-106)
[2023-03-26 02:09] LABS: Bedside Glucose 152 mg/dL (74-106)
[2023-03-26 02:09] LABS: Bedside Glucose 152 mg/dL (74-106)
[2023-03-26 02:09] LABS: Bedside Glucose 96 mg/dL (74-106)
[2023-03-26 02:09] LABS: Bedside Glucose 128 mg/dL (74-106)
[2023-03-26 02:09] LABS: Bedside Glucose 146 mg/dL (74-106)
[2023-03-26 02:10] LABS: Bedside Glucose 154 mg/dL (74-106)
== END 2023-03-26 00:58 | disposition home or self-care (01) ==
PROVIDERS: Emergency Provider Emergency Medicine; PCP Nurse Practitioner Primary Care; Visit Provider Emergency Medicine
DX: T38.3X1A Poisoning by insulin and oral hypoglycemic [antidiabetic] drugs, accidental (unintentional), initial encounter (principal); E10.649 Type 1 diabetes mellitus with hypoglycemia without coma; O9A.212 Injury, poisoning and certain other consequences of external causes complicating pregnancy, second trimester; F17.210 Nicotine dependence, cigarettes, uncomplicated; O99.332 Smoking (tobacco) complicating pregnancy, second trimester; Z3A.14 14 weeks gestation of pregnancy; O24.012 Pre-existing type 1 diabetes mellitus, in pregnancy, second trimester; Z96.41 Presence of insulin pump (external) (internal)
CPT/HCPCS: 82962; 96374; 96376; 99283; A4216

== ENCOUNTER → 2023-04-21 | Outpatient (CLI) | payer MEDICAID, SELFPAY ==
[2023-04-21 10:22] LABS: Absolute Lymphocyte Count 1.86 X10^3/uL (0.83-4.51); Absolute Neutrophil Count 8.2 X10^3/uL (2.0-7.7); Basophil# 0.04 X10^3/uL; Basophil% 0.4 % (0-1); Eosinophil# 0.08 X10^3/uL; Eosinophils% 0.7 % (0-5); Hematocrit 35.5 % (37-47); Hemoglobin 11.7 g/dL (12.0-15.0); Lymphocyte # 1.86 X10^3/ul (0.83-4.51); Lymphocyte % 17.2 % (19-41); Mean Corpuscular Hgb 30.2 pg (27.0-32.0); Mean Corpuscular Volume 91.7 fL (81-99); Mean Platelet Vol. 10.7 fl (6.2-12.0); Monocyte# 0.61 X10^3/uL; Monocyte% 5.6 % (0-10); NRBC Flagged by Analyzer 0 % (0-5); Neutrophil % 75.7 % (47-70); Platelet Count 269 K/mm3 (150-450); RBC Distribution Width CV 13.8 % (11.6-14.6); RBC Distribution Width SD 46.8 fl (35.1-43.9); Red Blood Count 3.87 M/mm3 (4.2-5.4); White Blood Count 10.8 K/mm3 (4.4-11.0)
[2023-04-21 10:54] LABS: Hemoglobin A1c 5.5 % (3.8-5.6)
[2023-04-21 11:04] LABS: Thyroid Stim Hormone (TSH) 2.01 uIU/mL (0.358-3.74)
[2023-04-21 11:23] LABS: HIV - WCH Non-Reactive (Nonreactive); Hepatitis B Surface Antigen Non-Reactive (Nonreactive); Hepatitis C Antibody Non-Reactive (Nonreactive); Syphilis Antibodies Non-reactive
== END | disposition home or self-care (01) ==
LOC: LAB 09:38
PROVIDERS: PCP Nurse Practitioner Primary Care; Referring Provider Obstetrics & Gynecology; Visit Provider Obstetrics & Gynecology
DX: O09.90 Supervision of high risk pregnancy, unspecified, unspecified trimester (principal); Z3A.00 Weeks of gestation of pregnancy not specified
CPT/HCPCS: 36415; 83036; 84443; 85025; 86703; 86780; 86803; 86850; 86900; 86901; 87340

== ENCOUNTER → 2023-04-25 | Outpatient (CLI) | payer MEDICAID, SELFPAY ==
--- OUTSIDE RECORDS SUMMARY | 2023-04-25 08:43 | XMS RPT_ITS | CCD ---
Author Name Unknown Address [address] [place] [address] Organization [facility] Care Team Providers Care Incident Response Specialist Name Role Phone No Doctor Assigned, Nodr Unavailable Unavail able Octavio Barrios Unavailable Unavailable Octavio Barrios Unavailable Unavailable Podlogar PUBLIC HEALTH REPRESENTATIVEMaria Primary Care Provider Podlogar Maria WALTON Primary Care Provider Madeline Wilson Unavailable Unavailable Dami Miranda Unavailable Luisa Babb Unavailable Unavailable PODLOGAR, MARIA Primary Care Unavailable LAI QUINONEZ Attending Unavail able PODLOGAR, MARIA Primary Care Unavailable KOFFI GARDNER Attending Unavailable PODLOGAR, MARIA Primary Care Unavailable SHERLYN MANCILLA Attending Unavail able ESSENCE REYES Attending Unavailabl e PODLOGAR, MARIA Primary Care Unavailable PODLOGAR, MARIA Primary Care Unavailable TANO WILD Attending Unavailab le PODLOGAR, MARIA Primary Care Unavailable MICHELLE ACOSTA Attending Unava ilable Hector [facility], Keti Unavailable Jeison Min MD Primary Care Provider SABIHA BEST Attending Unavailable PODLOGAR, MARIA Primary Care Unavailable OBED GARCÍA Attending Unavailable PODLOGAR, MARIA Primary Care Unavailable LOLIS DURAN Attending Unavailab le PODLOGAR, MARIA Primary Care Unavailable LOLIS DURAN Admitting Unavailab LOLIS Gray Referring Unavailab le PODLOGAR, MARIA Primary Care Unavailable LOLIS DURAN Attending Unavailab le PODLOGAR, MARIA Primary Care Unavailable LOLIS DURAN Admitting Unavailab rolly DURAN, LOLIS CASTELLANOS Referring Unavailab le PODLOGAR, MARIA Primary Care Unavailable LOLIS DURAN Attending Unavailab le PODLOGAR, MARIA Primary Care Unavailable LOLIS DURAN Admitting Unavailab LOLIS Gray Referring Unavailab le PODLOGAR, MARIA Primary Care Unavailable PODLOGAR, MARIA Primary Care Unavailable PODLOGAR, MARIA Primary Care Unavailable SABIHA BEST Referring Unavailable SABIHA BEST Attending Unavailable PODLOGAR, MARIA Primary Care Unavailable Koko Salazar Unavailable Unavailcristel e Rylan Cuellar Unavailable Unavailable Luisa Babb Attending Unavailab le Vore II, Dr. Jamie Javier Attending Unav ailable AGA, Dr. RYLAN JAVIER Attending Unavaila ble Koko Salazar Attending Unavailabl bessie Miranda, Dr. Dami Maynard Attending Unavail able [facility], Keti Unavailable Jeison Min MD Primary Care Provider PODLOGAR, MARIA Primary Care Unavailable KAYLA ANDERSON Attending Unavailabl LOLIS Mahmood Admitting Unavailab rolly DURAN, LOLIS CASTELLANOS Attending Unavailab le PODLOGAR, MARIA Primary Care Unavailable LOLIS DURAN Admitting Unavailab LOLIS Gray Referring Unavailab le PODLOGAR, MARIA Primary Care Unavailable KETURAH GAUTHIER Attending Unavailable Podlogar PUBLIC HEALTH REPRESENTATIVE, Maria Primary Care Provider PODLOGAR, MARIA Primary Care Unavailable TRUDI COE Attending Unavailable TRUDI COE Referring Unavailable PODLOGAR, MARIA Primary Care Unavailable [facility], Keti Unavailable MILAGROS KINCAID Attending Unavailable JEISON MIN Primary Care Unavailab MILAGROS Myers Referring Unavailable JEISON MIN Primary Care Unavailab JEISON Ridley Primary Care Unavailab MILAGROS Myers Attending Unavailable JEISON MIN Primary Care Unavailab RORO Acosta Referring RORO Eddy Primary Care Pallvai bessie АНДРЕЙ ORDAZ Attending Unavailable Allergies Allergy Classification Reported Allergen(s) Allergy Type Date of Onset Reaction(s) Facility (1 source) No Known Medication Allergies; Translations: [No Known Medication Allergies] Propensity to adverse reactions to drug (disorder) [facility] Repository Medications Current Medications Medication Drug Class(es) Dates Sig (Normalized) Sig (Original) cephalexin 500 mg oral capsule (3 sources) Cephalosporin Antibacterial Start: 01-07-2022 End: 01-16-2022 take 1 capsule by mouth three times daily cephalexin 500 mg oral capsule ; 1 cap(s) orally 3 times a day Quantity: 30 Refills: 0 Ordered: 06-Jan-2022 Cuellar, Rylan Start: 06-Jan-2022 End: 15-Jan-2022 Generic Substitution Allowed Comments: Finish all this medication unless otherwise directed by prescriber. Completed/Discontinued Medications Medication Drug Class(es) Dates Sig (Normalized) Sig (Original) 100 ml acetaminophen 10 mg/ml injection (1 source) Start: 05-22-2021 End: 05-22-2021 acetaminophen (OFIRMEV) injection amoxicillin 875 mg oral tablet (4 sources) Penicillin-class Antibacterial Start: 02-27-2021 End: 03-08-2021 take 1 tablet by mouth twice daily amoxicillin 875 mg oral tablet ; 1 tab(s) orally 2 times a day x 10 days Quantity: 20 Refills: 0 Ordered: 27-Feb-2021 Luisa Babb Start: 27-Feb-2021 End: 08-Mar-2021 Status: Completed Generic Substitution Allowed Comments: Finish all this medication unless otherwise directed by prescriber. Problems Active Problems Problem Classification Problem Date Documented Da te Episodic/Chronic Administrative/social admission (4 sources) General problem AND/OR complaint; Translations: [Person with feared health complaint in whom no diagnosis is made] Onset: 03-17-2022 Episodic Alcohol-related disorders (1 source) Alcohol intoxication; Translations: [Alcohol abuse, unspecified] 12-16-2020 Chronic Anxiety disorders (1 source) Mixed anxiety and depressive disorder; Translations: [Other specified anxiety disorders] Chronic Diabetes mellitus with complications (20 sources) Diabetic ketoacidosis without coma; Translations: [Type 1 diabetes mellitus with ketoacidosis without coma] Onset: 06-03-2020 Chronic Diabetes mellitus without complication (4 sources) Type 2 diabetes mellitus without complications; Translations: [Type 1 diabetes mellitus without complications] Onset: 02-27-2021 Chronic Diabetes mellitus without complication (6 sources) Hyperglycemia; Translations: [Hyperglycemia, unspecified] Onset: 09-05-2021 Episodic Nonspecific chest pain (2 sources) Chest pain; Translations: [Chest pain, unspecified] Onset: 12-16-2020 12-16-2020 Episodic Other aftercare (1 source) 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; Translations: [senior living (current) use of insulin] Onset: 01-07-2022 Episodic Other skin disorders (1 source) Disorder of the skin and subcutaneous tissue, unspecified; Translations: [Disorder of the skin and subcutaneous tissue, unspecified] Onset: 01-07-2022 Episodic Skin and subcutaneous tissue infections (4 sources) Pustule ; Translations: [Unspecified local infection of skin and subcutaneous tissue] Onset: 01-07-2022 01-07-2022 Episodic Substance-related disorders (1 source) Nicotine dependence, unspecified, uncomplicated; Translations: [Nicotine dependence, unspecified, uncomplicated] Onset: 02-27-2021 Chronic Unclassified (2 sources) STD CHECK 09-16-2020 Past or Other Problems Problem Classification Problem Date Documented Date Episodic/Chronic Abdominal pain (2 sources) Finding of sensation of abdomen; Translations: [Unspecified abdominal pain] Onset: 09-05-2021 Episodic E Codes: Fall (1 source) Fall on same level from slipping, tripping and stumbling with subsequent striking against furniture, initial encounter; Translations: [Fall same lev from slip/trip w strike agnst furniture, init] Onset: 05-14-2021 Episodic Fever of unknown origin (1 source) Fever, unspecified; Translations: [Fever, unspecified] Onset: 02-27-2021 Episodic Fracture of upper limb (20 sources) Closed fracture of metacarpal bone; Translations: [Closed fracture of metacarpal bone(s), site unspecified] Onset: 05-14-2021 05-14-2021 Episodic Joint disorders and dislocations; trauma-related (2 sources) Dislocation of carpometacarpal joint; Translations: [Closed dislocation of carpometacarpal (joint)] Onset: 05-14-2021 05-14-2021 Episodic Other aftercare (1 source) Other senior care (current) drug therapy; Translations: [Other watermaster (current) drug therapy] Onset: 05-14-2021 Episodic Other connective tissue disease (1 source) Pain in right hand; Translations: [Pain in right hand] Onset: 05-14-2021 Episodic Other connective tissue disease (1 source) Other specified soft tissue disorders; Translations: [Other specified soft tissue disorders] Onset: 05-14-2021 Episodic Other ear and sense organ disorders (1 source) Otalgia, bilateral; Translations: [Otalgia, bilateral] Onset: 02-27-2021 Episodic Other upper respiratory infections (4 sources) Acute pharyngitis; Translations: [Acute pharyngitis] Onset: 02-27-2021 02-27-2021 Episodic Otitis media and related conditions (3 sources) Acute otitis media; Translations: [Unspecified otitis media] Onset: 02-27-2021 02-27-2021 Episodic Ovarian cyst (2 sources) Cyst of ovary; Translations: [Other and unspecified ovarian cyst] Onset: 09-05-2021 09-05-2021 Episodic Spondylosis; intervertebral disc disorders; other back problems (1 source) Dorsalgia, unspecified; Translations: [Dorsalgia, unspecified] Onset: 09-05-2021 Episodic Urinary tract infections (3 sources) Urinary tract infectious disease; Translations: [Urinary tract infection, site not specified] Onset: 09-05-2021 09-05-2021 Episodic Results Test Name Value Interpretation Reference Range Facil ity Vital Signs Date Time Vital Sign Value Performing Clinician Facility 09-14-2022 15:20-0400 Body height 157.5 cm Milagros Cioce TOOL SETTER APPRENTICE.PUBLIC HEALTH REPRESENTATIVE Work Phone: [facility] 09-14-2022 15:20-0400 Body weight 57.15 kg Milagros Cioce TOOL SETTER APPRENTICE.PUBLIC HEALTH REPRESENTATIVE Work Phone: [facility] 09-14-2022 15:20-0400 Diastolic blood pressure 76 mm[Hg] Milagros Cioce TOOL SETTER APPRENTICE.PUBLIC HEALTH REPRESENTATIVE Work Phone: [facility] 09-14-2022 15:20-0400 Heart rate 86 /min Milagros Cioce TOOL SETTER APPRENTICE.PUBLIC HEALTH REPRESENTATIVE Work Phone: [facility] 09-14-2022 15:20-0400 SaO2% (BldA) [Mass fraction] 99 % Milagros Cioce TOOL SETTER APPRENTICE.PUBLIC HEALTH REPRESENTATIVE Work Phone: [facility] 09-14-2022 15:20-0400 Systolic blood pressure 114 mm[Hg] Milagros Cioce TOOL SETTER APPRENTICE.PUBLIC HEALTH REPRESENTATIVE Work Phone: [facility] 04-19-2022 14:45-0500 Body height 157.5 cm Milagros Cioce TOOL SETTER APPRENTICE.PUBLIC HEALTH REPRESENTATIVE Work Phone: [facility] 04-19-2022 14:45-0500 Body weight 53.52 kg Milagros Cioce TOOL SETTER APPRENTICE.PUBLIC HEALTH REPRESENTATIVE Work Phone: [facility] 04-19-2022 14:45-0500 Diastolic blood pressure 80 mm[Hg] Milagros Cioce TOOL SETTER APPRENTICE.PUBLIC HEALTH REPRESENTATIVE Work Phone: [facility] 04-19-2022 14:45-0500 Heart rate 33 /min Milagros Cioce TOOL SETTER APPRENTICE.PUBLIC HEALTH REPRESENTATIVE Work Phone: [facility] 04-19-2022 14:45-0500 Systolic blood pressure 128 mm[Hg] Milagros Cioce TOOL SETTER APPRENTICE.PUBLIC HEALTH REPRESENTATIVE Work Phone: [facility] 01-07-2022 00:00-0400 Body height 157.4 cm Rylan [facility] 01-07-2022 00:00-0400 Body temperature 97.7 [degF] Rylan [facility] 01-07-2022 00:00-0400 Body weight 50 kg Rylan [facility] 01-07-2022 00:00-0400 Diastolic blood pressure 85 mm[Hg] [facility] 01-07-2022 00:00-0400 Heart rate 94 /min [facility] 01-07-2022 00:00-0400 Respiratory rate 18 /min Rylan [facility] 01-07-2022 00:00-0400 SaO2% (BldA) [Mass fraction] 99 % Rylan [facility] 01-07-2022 00:00-0400 Systolic blood pressure 128 mm[Hg] Rylan [facility] 09-05-2021 13:30-0400 Diastolic blood pressure 83 mm[Hg] Koko Salazar [facility] 09-05-2021 13:30-0400 Heart rate 66 /min Koko Salazar [facility] 09-05-2021 13:30-0400 Respiratory rate 17 /min Koko Salazar [facility] 09-05-2021 13:30-0400 SaO2% (BldA) [Mass fraction] 98 % Koko Salazar [facility] 09-05-2021 13:30-0400 Systolic blood pressure 100 mm[Hg] Koko Salazar [facility] 09-05-2021 09:00-0400 Body height 157.4 cm Koko Salazar [facility] 09-05-2021 09:00-0400 Body temperature 97.7 [degF] Koko Salazar [facility] 09-05-2021 09:00-0400 Body weight 54.5 kg Koko Salazar [facility] 05-18-2021 14:16-0500 Body height 157.5 cm Sabihabessie Best PUBLIC HEALTH REPRESENTATIVE Work Phone: [facility] 05-18-2021 14:16-0500 Body mass index (BMI) [Ratio] 19.94 kg/m2 Sabiha Best CNP Work Phone: [facility] 05-18-2021 14:16-0500 Body weight 49.44 kg Sabiha Best PUBLIC HEALTH REPRESENTATIVE Work Phone: [facility] 05-14-2021 23:36-0500 Diastolic blood pressure 98 mm[Hg] Dami Miranda Other Phone: [facility] 05-14-2021 23:36-0500 Heart rate 82 /min Dami [place] Other Phone: [facility] 05-14-2021 23:36-0500 Respiratory rate 18 /min Dami Ruth Other Phone: [facility] 05-14-2021 23:36-0500 SaO2% (BldA) [Mass fraction] 99 % Dami [place] Other Phone: [facility] 05-14-2021 23:36-0500 Systolic blood pressure 136 mm[Hg] Dami [place] Other Phone: [facility] 05-14-2021 21:24-0500 Body height 157.4 cm Dami [place] Other Phone: [facility] 05-14-2021 21:24-0500 Body temperature 98.06 [degF] Dami Ruth Other Phone: [facility] 05-14-2021 21:24-0500 Body weight 46.3 kg Dami Miranda Other Phone: [facility] 02-27-2021 17:52-0500 Body height 157.4 cm Luisa Babb [facility] 02-27-2021 17:52-0500 Body temperature 98.96 [degF] Luisa Babb [facility] 02-27-2021 17:52-0500 Diastolic blood pressure 79 mm[Hg] Luisa Skinny [facility] 02-27-2021 17:52-0500 Heart rate 96 /min Luisa Babb [facility] 02-27-2021 17:52-0500 Respiratory rate 16 /min Luisa Babb [facility] 02-27-2021 17:52-0500 SaO2% (BldA) [Mass fraction] 97 % Luisa Skinny [facility] 02-27-2021 17:52-0500 Systolic blood pressure 113 mm[Hg] Luisa Skinny [facility] 12-16-2020 10:00-0400 Heart rate 80 /min Dami [place] Other Phone: [facility] 12-16-2020 10:00-0400 Respiratory rate 16 /min Dami Miranda Other Phone: [facility] 12-16-2020 10:00-0400 SaO2% (BldA) [Mass fraction] 95 % Dami Miranda Other Phone: [facility] 12-16-2020 09:30-0400 Diastolic blood pressure 77 mm[Hg] Dami Miranda Other Phone: [facility] 12-16-2020 09:30-0400 Systolic blood pressure 110 mm[Hg] Dami Miranda Other Phone: [facility] 12-16-2020 04:16-0400 Body height 158.7 cm Dami Miranda Other Phone: [facility] 12-16-2020 04:16-0400 Body temperature 97.7 [degF] Dami Miranda Other Phone: [facility] 12-16-2020 04:16-0400 Body weight 54.5 kg Dami Miranda Other Phone: [facility] 09-16-2020 20:29-0400 Body height 157.5 cm Tano Wild MD Work Phone: [facility] 09-16-2020 20:29-0400 Body mass index (BMI) [Ratio] 19.57 kg/m2 Taon Wild MD Work Phone: [facility] 09-16-2020 20:29-0400 Body temperature 100.09 [degF] Tano Wild MD Work Phone: [facility] 09-16-2020 20:29-0400 Body weight 48.53 kg Tano Wild MD Work Phone: [facility] 09-16-2020 20:29-0400 Diastolic blood pressure 84 mm[Hg] Tano Wild MD Work Phone: [facility] 09-16-2020 20:29-0400 Heart rate 110 /min Tano Wild MD Work Phone: [facility] 09-16-2020 20:29-0400 Respiratory rate 16 /min Tano Wild MD Work Phone: [facility] 09-16-2020 20:29-0400 Systolic blood pressure 138 mm[Hg] Tano Wild MD Work Phone: [facility] 09-16-2020 20:06-0400 Body height 157.4 cm [facility] 09-16-2020 20:06-0400 Body temperature 98.78 [degF] [facility] 09-16-2020 20:06-0400 Body weight 48.3 kg [facility] 09-16-2020 20:06-0400 Diastolic blood pressure 96 mm[Hg] [facility] 09-16-2020 20:06-0400 Heart rate 107 /min [facility] 09-16-2020 20:06-0400 Respiratory rate 19 /min [facility] 09-16-2020 20:06-0400 SaO2% (BldA) [Mass fraction] 96 % [facility] 09-16-2020 20:06-0400 Systolic blood pressure 144 mm[Hg] [facility] 08-12-2020 00:16-0400 Diastolic blood pressure 54 mm[Hg] Lolis Lopes MD Work Phone: [facility] 08-12-2020 00:16-0400 Heart rate 78 /min Lolis Lopes MD Work Phone: [facility] 08-12-2020 00:16-0400 Respiratory rate 16 /min Lolis Lopes MD Work Phone: [facility] 08-12-2020 00:16-0400 SaO2% (BldA) [Mass fraction] 99 % Lolis Loeps MD Work Phone: [facility] 08-12-2020 00:16-0400 Systolic blood pressure 97 mm[Hg] Lolis Lopes MD Work Phone: [facility] 08-11-2020 21:05-0400 SaO2% (BldA) [Mass fraction] 99.8 % Saman Irwin [facility] 08-11-2020 20:11-0400 Body height 158.8 cm Lolis Lopes MD Work Phone: [facility] 08-11-2020 20:10-0400 Body temperature 98.49 [degF] Lolis Lopes MD Work Phone: [facility] 08-10-2020 19:02-0400 Diastolic blood pressure 84 mm[Hg] Essence Reyes MD Work Phone: [facility] 08-10-2020 19:02-0400 Heart rate 75 /min Essence Reyes MD Work Phone: [facility] 08-10-2020 19:02-0400 Respiratory rate 16 /min Essence Reyes MD Work Phone: [facility] 08-10-2020 19:02-0400 SaO2% (BldA) [Mass fraction] 100 % Essence Reyes MD Work Phone: [facility] 08-10-2020 19:02-0400 Systolic blood pressure 116 mm[Hg] Essence Reyes MD Work Phone: [facility] 08-10-2020 16:39-0400 Body height 157.5 cm Essence Reyes MD Work Phone: [facility] 08-10-2020 16:39-0400 Body mass index (BMI) [Ratio] 19.57 kg/m2 Essence Reyes MD Work Phone: [facility] 08-10-2020 16:39-0400 Body temperature 98.29 [degF] Essence Reyes MD Work Phone: [facility] 08-10-2020 16:39-0400 Body weight 48.53 kg Essence Reyes MD Work Phone: [facility] Encounters Encounter Date Encounter Type Care Provider Facility Start: 04-21-2023 End: 04-21-2023 ambulatory RORO CASTRO [facility] Start: 02-09-2023 Telephone encounter Milagros aguilera TOOL SETTER APPRENTICE.PUBLIC HEALTH REPRESENTATIVE Work Phone: Endocrinology Procedures Date Procedure Procedure Detail Performing Clinician Start: 03-17-2022 ORDERS (SCAN) Trudi logan PUBLIC HEALTH REPRESENTATIVE Work Phone: Start: 03-17-2022 Radiologic exam ches t 2 views Trudi Coe PUBLIC HEALTH REPRESENTATIVE Work Phone: Start: 05-22-2021 AIRWAY SUPRAGLOTTIC Tos an [facility] Start: 12-16-2020 End: 12-16-2020 EKG impression Dami W Ruth Start: 09-16-2020 Gonadotropin chorion ic qualitative [facility] Start: 08-11-2020 End: 08-11-2020 Gluc bld gluc mntr dev cleared fda spec home use Lolis Lopes MD Work Phone: Start: 08-11-2020 Urinalysis microscop ic only Lolis Lopes MD Work Phone: Start: 08-11-2020 Urinalysis, reagent strip without microscopy Lolis Lopes MD Work Phone: Start: 08-11-2020 End: 08-11-2020 Albumin serum plasma/whole blood Lolis Lopes MD Work Phone: Start: 08-11-2020 BLOOD GAS VENOUS Nia Lopes MD Work Phone: Start: 08-11-2020 Complete blood count with white cell differential, automated Lolis Lopes MD Work Phone: Start: 08-10-2020 Gluc bld gluc mntr d ev cleared fda spec home use Essence Reyes MD Work Phone: Start: 08-10-2020 Glucose measurement [facility] Start: 08-10-2020 Ct abdomen & pelvis w/contrast material Essence Reyes MD Work Phone: Start: 08-10-2020 Gonadotropin chorion ic qualitative [facility] Start: 08-10-2020 Urnls dip stick/tabl et rgnt auto w/o microscopy [facility] Start: 08-10-2020 Blood gases any combination ph pco2 po2 co2 hco3 [facility] Start: 08-10-2020 End: 08-10-2020 Blood count complete auto&auto difrntl wbc Essence Reyes MD Work Phone: Start: 05-05-2020 Adult depression scr eening assessment Milagros Cioce TOOL SETTER APPRENTICE.PUBLIC HEALTH REPRESENTATIVE Work Phone: Plan of Treatment Date Care Activity Detail Author Start: 07-22-2027 Tetanus vaccination [facility] Start: 07-22-2027 Urine microalbumin profile [facility] Start: 07-24-2023 Hepatitis B surface antibody level LDL CHOLESTEROL [facility] Start: 02-18-2023 End: 04-20-2023 ALBUMIN/CREAT RATIO RND UR ALBUMIN/CREAT RATIO RND UR Lab Routine Type I diabetes mellitus with manifestations (HCC) Expected: 02/18/2023, Expires: 04/20/2023 [facility] Work Phone: Immunizations Immunization Date Immunization Notes Care Provider Fa arnold 07-21-2017 tetanus toxoid, redu donal diphtheria toxoid, and acellular pertussis vaccine, adsorbed Milagros Cioce TOOL SETTER APPRENTICE.PUBLIC HEALTH REPRESENTATIVE Work Phone: [facility] Work Phone: 12-29-2016 influenza, seasonal, injectable, preservative free Imlagros Cioce TOOL SETTER APPRENTICE.PUBLIC HEALTH REPRESENTATIVE Work Phone: [facility] Work Phone: 12-29-2016 influenza virus vacc ine, unspecified formulation Trudi Coe [facility] Work Phone: [facility] 11-20-2009 human papilloma viru s vaccine, quadrivalent Milagros Cioce TOOL SETTER APPRENTICE.PUBLIC HEALTH REPRESENTATIVE Work Phone: [facility] Work Phone: 11-20-2009 meningococcal polysaccharide (groups A, C, Y and W-135) diphtheria toxoid conjugate vaccine (MCV4P) Milagros Cioce TOOL SETTER APPRENTICE.PUBLIC HEALTH REPRESENTATIVE Work Phone: [facility] Work Phone: 11-20-2009 HPV, unspecified formulation Essence Reyes MD Work Phone: [facility] 01-13-2000 haemophilus influenz ae type b vaccine, conjugate unspecified formulation Milagros Cioce TOOL SETTER APPRENTICE.PUBLIC HEALTH REPRESENTATIVE Work Phone: [facility] Work Phone: 01-13-2000 measles, mumps and rubella virus vaccine Milagros Cioce TOOL SETTER APPRENTICE.PUBLIC HEALTH REPRESENTATIVE Work Phone: [facility] Work Phone: 12-02-1999 diphtheria, tetanus toxoids and acellular pertussis vaccine, unspecified formulation Milagros Cioce TOOL SETTER APPRENTICE.PUBLIC HEALTH REPRESENTATIVE Work Phone: [facility] Work Phone: 12-02-1999 measles, mumps and rubella virus vaccine Milagros Cioce TOOL SETTER APPRENTICE.PUBLIC HEALTH REPRESENTATIVE Work Phone: [facility] Work Phone: 12-02-1999 poliovirus vaccine, inactivated Milagros Cioce TOOL SETTER APPRENTICE.PUBLIC HEALTH REPRESENTATIVE Work Phone: [facility] Work Phone: 02-14-1996 diphtheria, tetanus toxoids and pertussis vaccine Milagros Cioce TOOL SETTER APPRENTICE.PUBLIC HEALTH REPRESENTATIVE Work Phone: [facility] Work Phone: 02-14-1996 hepatitis B vaccine, pediatric or pediatric/adolescent dosage Milagros Cioce TOOL SETTER APPRENTICE.PUBLIC HEALTH REPRESENTATIVE Work Phone: [facility] Work Phone: 02-14-1996 trivalent poliovirus vaccine, live, oral Milagros Cioce TOOL SETTER APPRENTICE.PUBLIC HEALTH REPRESENTATIVE Work Phone: [facility] Work Phone: 1995 diphtheria, tetanus toxoids and pertussis vaccine Milagros Cioce TOOL SETTER APPRENTICE.PUBLIC HEALTH REPRESENTATIVE Work Phone: [facility] Work Phone: 1995 hepatitis B vaccine, pediatric or pediatric/adolescent dosage Milagros Cioce TOOL SETTER APPRENTICE.PUBLIC HEALTH REPRESENTATIVE Work Phone: [facility] Work Phone: 1995 trivalent poliovirus vaccine, live, oral Milagros Cioce TOOL SETTER APPRENTICE.PUBLIC HEALTH REPRESENTATIVE Work Phone: [facility] Work Phone: 1995 diphtheria, tetanus toxoids and pertussis vaccine Milagros Cioce TOOL SETTER APPRENTICE.PUBLIC HEALTH REPRESENTATIVE Work Phone: [facility] Work Phone: 1995 haemophilus influenz ae type b vaccine, conjugate unspecified formulation Milagros Cioce TOOL SETTER APPRENTICE.PUBLIC HEALTH REPRESENTATIVE Work Phone: [facility] Work Phone: 1995 hepatitis B vaccine, pediatric or pediatric/adolescent dosage Milagros Cioce TOOL SETTER APPRENTICE.[facility] Work Phone: [facility] Work Phone: 1995 trivalent poliovirus vaccine, live, oral Milagros Cioce TOOL SETTER APPRENTICE.[facility] Work Phone: [facility] Work Phone: Payers Date Payer Category Payer Unknown 2022 Unknown [id number] 2021 Medicaid [id number] 2020 Medicaid [id number] 2020 Medicaid [id number] 2020 Medicaid [employer] [id number] 2020-Present [phone] [address] [place] [address] Medicaid [id number] 2020 Unknown [id number] [id number]. [id number] 2020 Unknown [id number] 2017 Self-pay 1995 Unknown [id number] 2.16.840.1.306094.3.579.2.902 1995 Unknown [id number] 2.16.840.1.939588.3.579.2.90 1995 Unknown [id number] 2.16.840.1.375647.3.579.2.902 1995 Unknown [id number] 2.16.840.1.499393.3.579.2.902 1995 Unknown [id number] 2.16.840.1.215013.3.579.2.902 1995 Unknown [id number] 2.16.840.1.837374.3.579.2.902 1995 Unknown [id number] 2.16.840.1.162754.3.579.2.903 1995 Unknown [id number] 2.16.840.1.509729.3.579.2.903 1995 Unknown [id number] 2.16.840.1.733827.3.579.2.903 1995 Unknown [id number] 2.16.840.1.146968.3.579.2.90 1995 Unknown [id number] 2.16.840.1.462553.3.579.2.903 1995 Unknown [id number] 2.16.840.1.807715.3.579.2.90 1995 Unknown [id number] 2.16.840.1.574043.3.579.2.903 1995 Unknown [id number] 2.16.840.1.410187.3.579.2.90 1995 Unknown [id number] 2.16.840.1.918165.3.579.2.900 1995 Unknown [id number] 2.16.840.1.769450.3.579.2.900 1995 Unknown [id number] 2.16.840.1.436007.3.579.2.900 1995 Unknown [id number] 2.16.840.1.881450.3.579.2.1068 1995 Unknown [id number] 2.16.840.1.914470.3.579.2.106 1995 Unknown [id number] 2.16.840.1.719286.3.579.2.1068 1995 Unknown [id number] 2.16.840.1.007289.3.579.2.106 1995 Unknown [id number] 2.16.840.1.566119.3.579.2.1068 1995 Unknown [id number] 2.16.840.1.893145.3.579.2.90 1995 Unknown [id number] 2.16.840.1.894539.3.579.2.90 1995 Unknown [id number] 2.16.840.1.881207.3.579.2.90 1995 Unknown [id number] 2.16.840.1.504876.3.579.2.98 1995 Unknown [id number] 2.16.840.1.669290.3.579.2.983 1995 Unknown [id number] 2.16.840.1.080137.3.579.2.983 1995 Unknown [id number] 2.16.840.1.566593.3.579.2.983 1995 Unknown [id number] 2.16.840.1.433021.3.579.2.479 Unknown [id number] Social History Date Type Detail Facility Start: 08-10-2020 Tobacco smoking status NMIS Never smoker [facility] Start: 08-10-2020 End: 04-19-2022 Tobacco use and exposure Never used [facility] Start: 08-10-2020 End: 06-25-2021 Alcohol intake Lifetime non-drinker (finding) [facility] Start: 08-24-2019 End: 08-10-2020 History SDOH Alcohol Frequency 1 [facility] Start: 1995 Sex Assigned At Not on file [facility] Start: 08-11-2020 End: 04-19-2022 Tobacco smoking status [facility] Current every day smoker [facility] Start: 08-11-2020 End: 09-14-2022 Cigarettes smoked current (pack per day) - Reported [facility] Start: 08-11-2020 End: 09-14-2022 Alcohol intake Ex-drinker (finding) [facility] Start: 05-08-2021 End: 07-07-2021 Exposure to SARS-CoV-2 (event) Not sure [facility] Tobacco smoking consumption unknown [facility] History of tobacco use [facility] Start: 08-24-2019 History SDOH Alcohol Std Drinks 98 [facility] Start: 08-24-2019 End: 01-09-2020 History SDOH Social Connections Phone 2 [facility] Start: 08-24-2019 End: 01-09-2020 History SDOH Social Connections Get Together 5 [facility] Start: 08-24-2019 History SDOH Social Connections Living 7 [facility] Start: 08-23-2019 Education 12 [facility] Start: 01-09-2020 End: 09-14-2022 Social connection and isolation panel [facility] Frequency of Communication with Friends and Family Not on file [facility] How often to you hav e a drink containing alcohol? Never [facility] Do you feel stress - tense, restless, nervous, or anxious, or unable to sleep at night because your mind is troubled all the time - these days [OSQ] Only a little [facility] (I/We) worried wheth er (my/our) food would run out before (I/we) got money to buy more. Never true [facility] Work Phone: In the past 12 month s, was there a time when you were not able to pay the mortgage or rent on time? No [facility] Start: 07-12-2022 Gender identity Identifies as female gender (finding) [facility] Medical Equipment Procedure Code Equipment Code Equipment Origin al Text Equipment Identifier Dates [id number] Start: 07-01-2020 End: 09-14-2022 Clinical Notes 03-21-2020 to 02-09-2023 Telephone Encounter - Sho Hartman RN - 02/09/2023 9:54 AM ESTTelephone Encounter - Milagros Kincaid APRN.PUBLIC HEALTH REPRESENTATIVE - 02/09/2023 9:46 AM Jacob Piña MA - 09/14/2022 3:23 PM EDT Note Date & Type Note Facility 02-09-2023 Miscellaneous Notes Called pt and Congratulated her on her and updated that since she is and while she is she will need to be seen by Dr. Chang Finnegan for her Type 1 diabetes in [place]. Updated pt that this nurse sent her the information to call and schedule via [employer] message. Per pt, Ok, thanks . This is a TYPE 1 DM patient who is newly . She was scheduled with me for follow up with new . I do not see for DM patients! She needs to be scheduled with Dr CHANG FINNEGAN in [place] for her DM1/ CM documented in this encounter [facility] 11-24-2022 Miscellaneous Notes Updated pt that insulin aspart/Novolog prescription PA approved from 10/24/2022-11/23/2023. Pt is ordered Novolog for her pump (prescription sent to pharmacy on 05/11/22). Started EPA through [employer], answered all questions. Awaiting response. When this nurse answered EPA questions it stated that insulin lispro was preferred. Will await decision. Updated pt via [employer] message. documented in this encounter [facility] 11-01-2022 Miscellaneous Notes Received a message from pt that her insulin for her pump is no longer covered by her insurance. I responded letting her know to contact the insurance company and find out what is currently covered and to write it down so she can let us know so it can be sent to her pharmacy. Xochitl Su MA documented in this encounter [facility] 09-14-2022 Note HNO ID: [id number] Author: Dulce Piña MA Service: ? Author Type: Film Critic Type: Progress Notes Filed: 09/15/2022 7:06 AM Note Text: Dulce Piña MA [facility] 09-14-2022 Note HNO ID: [id number] Author: Milagros Kincaid APRN.ISABELLE Service: ? Author Type: Nurse Practitioner Type: Progress Notes Filed: 09/15/2022 7:06 AM Note Text: OFFICE VISIT PROGRESS NOTE CC Mya Rubio is a 27 year old female who presents today for blood sugar review, insulin pump setting review.. HPI Diagnosed with diabetes mellitus type I, uncontrolled, ~ 12/2019 Last endocrine OV 04/19/2022 Some elements copied from my note 04/19/2022 which have been updated where appropriate, and all reflect current medical decision making from date of this visit. Saw ENDO VICE PRESIDENT OF PRODUCT MARKETING for carb counting/insulin to carb ratio instruction ? no Sts is trying to get insulin pump looking [employer] Admits skips her insulin shots quite a bit - insulin stings when she injects Very frustrated/angry about why this happened to her in the first place Reports having very variable blood sugars 44-400+ (pump downloaded and reviewed) States is using closed loop, but has not updated to new software w [employer] No change in diet, still eating high carb processed/fast food diet Exercise, work only CURRENT DM MEDS NOVOLOG insulin via [employer] 770 G with Guardian sensors SMBG Type of Monitor: Other previously using Freestyle yuval 2, but ran out of sensors and did not fish bait picker from pharmacy Using glucometer at this time FREESTYLE LITE - checks her sugars, runs between 300-HI all day long Frequency of Monitorin times a day BG Values: Hypoglycemia: No can tell if low - starts at 97 Diet: highly processed Exercise: none DM REVIEW OF SYSTEMS Last Eye Exam : 2021 - does see yearly Last Podiatry Exam: 04/2020 Cardiorespiratory: negative, denies chest pain, pressure Claudication: no Dyslipidemia: No High Blood Pressure: Yes, controlled on medication CURRENT LABS Component Latest Ref Rng AND Units 03/03/2022 07/23/2022 ALT 7 - 38 U/L 9 Glucose 74 - 99 mg/dL 239 (H) BUN 7 - 21 mg/dL 16 Creatinine 0.58 - 0.96 mg/dL 0.65 Sodium 136 - 144 mmol/L 137 Potassium 3.7 - 5.1 mmol/L 4.4 Chloride 97 - 105 mmol/L 101 CO2 22 - 30 mmol/L 25 Anion Gap 9 - 18 mmol/L 11 eGFR >=60 mL/min/1.73mA? 124 Total Cholesterol, Nonfasting <200 mg/dL 135 Triglycerides, Nonfasting <150 mg/dL 68 HDL Cholesterol, Nonfasting >39 mg/dL 41 LDL Cholesterol, Nonfasting <100 mg/dL 80 Non HDL Cholesterol, Nonfasting <130 mg/dL 94 VLDL Cholesterol, Nonfasting <30 mg/dL 14 Total Chol/HDL Ratio, Nonfasting <5.10 mg/dL 3.29 LDL/HDL Ratio, Nonfasting <2.54 mg/dL 1.95 Hemoglobin A1C 4.3 - 5.6 % 12.6 (H) 8.6 (H) Estimated Average Glucose mg/dL 315 200 PAST MEDICAL HISTORY Diagnosis Date Diabetes mellitus type 1 (HCC) PAST SURGICAL HISTORY Procedure Laterality Date FOOT SURGERY HX Right Screw put in broken foot. FAMILY HISTORY Problem Relation Age of Onset No Known Problems Mother other (motorcycle accident) Father No Known Problems Sister No Known Problems Brother No Known Problems Maternal Grandmother No Known Problems Maternal Grandfather No Known Problems Paternal Grandmother other (lung cancer) Paternal Grandfather No Known Problems Brother Social History Tobacco Use Smoking status: Every Day Packs/day: 0.50 Years: 4.00 Pack years: 2.00 Types: Cigarettes Smokeless tobacco: Never Vaping Use Vaping Use: Never used Substance Use Topics Alcohol use: Not Currently Drug use: Never Current Outpatient Medications Medication Sig blood sugar diagnostic (ACCU-CHEK GUIDE TEST STRIPS) test strip Use as instructed - use up to 3 daily to calibrate CGM/pump, check blood sugar. E10.65 insulin aspart U-100 (NOVOLOG U-100 INSULIN ASPART) 100 unit/mL Inject 1 unit of insulin for every 5 grams carbs PLUS SS to correct blood sugar 2 units for every 50 over 150 ~130 units TDD insulin glargine (LANTUS SOLOSTAR U-100 INSULIN) 100 unit/mL (3 mL) Inject 30 units once daily insulin aspart U-100 (NOVOLOG) 100 unit/mL (3 mL) Inject 1 unit of insulin for every 5 grams carbs PLUS SS to correct blood sugar 2 units for every 50 over 150 ~100 units lisinopril (ZESTRIL, PRINIVIL) 5 mg tablet Take 1 tablet by mouth once daily. (Patient not taking: Reported on 04/19/2022) sertraline (ZOLOFT) 50 mg tablet Take 1 tablet by mouth once daily. (Patient not taking: Reported on 04/19/2022) Insulin [place], Disposable, (BD ULTRA-FINE GRACIELA PEN NEEDLE) 32 gauge x 5/32 Use to inject Tresiba once daily No current facility-administered medications for this visit. ALLERGIES No Known Allergies REVIEW OF SYSTEMS - POSITIVES IN BOLD GENERAL:No weight loss, malaise or fevers HEENT:Negative for frequent or significant headaches, No changes in hearing or vision, no nose bleeds or other nasal problems NECK:Negative for lumps, goiter, pain and significant neck swelling RESPIRATORY: Negative for cough, hemoptysis, wheezing, COPD, dyspnea or shortness of breath CARDIOVASCULAR: Negative for chest p (more content not included)... [facility] 09-14-2022 History of Presen t illness Narrative Images from the original note were not included. Dulce Piña MA Images from the original note were not included. OFFICE VISIT PROGRESS NOTE CC Mya Rubio is a 27 year old female who presents today for blood sugar review, insulin pump setting review.. HPI Diagnosed with diabetes mellitus type I, uncontrolled, ~ 12/2019 Last endocrine OV 04/19/2022 Some elements copied from my note 04/19/2022 which have been updated where appropriate, and all reflect current medical decision making from date of this visit. Saw ENDO VICE PRESIDENT OF PRODUCT MARKETING for carb counting/insulin to carb ratio instruction ? no Sts is trying to get insulin pump looking [employer] Admits skips her insulin shots quite a bit - insulin stings when she injects Very frustrated/angry about why this happened to her in the first place Reports having very variable blood sugars 44-400+ (pump downloaded and reviewed) States is using closed loop, but has not updated to new software w [employer] No change in diet, still eating high carb processed/fast food diet Exercise, work only CURRENT DM MEDS NOVOLOG insulin via [employer] 770 G with Guardian sensors SMBG Type of Monitor: Other previously using Freestyle yuval 2, but ran out of sensors and did not fish bait picker from pharmacy Using glucometer at this time FREESTYLE LITE - checks her sugars, runs between 300-HI all day long Frequency of Monitorin times a day BG Values: Hypoglycemia: No can tell if low - starts at 97 Diet: highly processed Exercise: none DM REVIEW OF SYSTEMS Last Eye Exam : 2021 - does see yearly Last Podiatry Exam: 04/2020 Cardiorespiratory: negative, denies chest pain, pressure Claudication: no Dyslipidemia: No High Blood Pressure: Yes, controlled on medication CURRENT LABS Component Latest Ref Rng & Units 03/03/2022 07/23/2022 ALT 7 - 38 U/L 9 Glucose 74 - 99 mg/dL 239 (H) BUN 7 - 21 mg/dL 16 Creatinine 0.58 - 0.96 mg/dL 0.65 Sodium 136 - 144 mmol/L 137 Potassium 3.7 - 5.1 mmol/L 4.4 Chloride 97 - 105 mmol/L 101 CO2 22 - 30 mmol/L 25 Anion Gap 9 - 18 mmol/L 11 eGFR >=60 mL/min/1.73m 124 Total Cholesterol, Nonfasting <200 mg/dL 135 Triglycerides, Nonfasting <150 mg/dL 68 HDL Cholesterol, Nonfasting >39 mg/dL 41 LDL Cholesterol, Nonfasting <100 mg/dL 80 Non HDL Cholesterol, Nonfasting <130 mg/dL 94 VLDL Cholesterol, Nonfasting <30 mg/dL 14 Total Chol/HDL Ratio, Nonfasting <5.10 mg/dL 3.29 LDL/HDL Ratio, Nonfasting <2.54 mg/dL 1.95 Hemoglobin A1C 4.3 - 5.6 % 12.6 (H) 8.6 (H) Estimated Average Glucose mg/dL 315 200 PAST MEDICAL HISTORY Diagnosis Date Diabetes mellitus type 1 (HCC) PAST SURGICAL HISTORY Procedure Laterality Date FOOT SURGERY HX Right Screw put in broken foot. FAMILY HISTORY Problem Relation Age of Onset No Known Problems Mother other (motorcycle accident) Father No Known Problems Sister No Known Problems Brother No Known Problems Maternal Grandmother No Known Problems Maternal Grandfather No Known Problems Paternal Grandmother other (lung cancer) Paternal Grandfather No Known Problems Brother Social History Tobacco Use Smoking status: Every Day Packs/day: 0.50 Years: 4.00 Pack years: 2.00 Types: Cigarettes Smokeless tobacco: Never Vaping Use Vaping Use: Never used Substance Use Topics Alcohol use: Not Currently Drug use: Never Current Outpatient Medications Medication Sig blood sugar diagnostic (ACCU-CHEK GUIDE TEST STRIPS) test strip Use as instructed - use up to 3 daily to calibrate CGM/pump, check blood sugar. E10.65 insulin aspart U-100 (NOVOLOG U-100 INSULIN ASPART) 100 unit/mL Inject 1 unit of insulin for every 5 grams carbs PLUS SS to correct blood sugar 2 units for every 50 over 150 ~130 units TDD insulin glargine (LANTUS SOLOSTAR U-100 INSULIN) 100 unit/mL (3 mL) Inject 30 units once daily insulin aspart U-100 (NOVOLOG) 100 unit/mL (3 mL) Inject 1 unit of insulin for every 5 grams carbs PLUS SS to correct blood sugar 2 units for every 50 over 150 ~100 units lisinopril (ZESTRIL, PRINIVIL) 5 mg tablet Take 1 tablet by mouth once daily. (Patient not taking: Reported on 04/19/2022) sertraline (ZOLOFT) 50 mg tablet Take 1 tablet by mouth once daily. (Patient not taking: Reported on 04/19/2022) Insulin [place], Disposable, (BD ULTRA-FINE GRACIELA PEN NEEDLE) 32 gauge x 5/32 Use to inject Tresiba once daily No current facility-administered medications for this visit. ALLERGIES No Known Allergies REVIEW OF SYSTEMS - POSITIVES IN BOLD GENERAL:No weight loss, malaise or fevers HEENT:Negative for frequent or significant headaches, No changes in hearing or vision, no nose bleeds or other nasal problems NECK:Negative for lumps, goiter, pain and significant neck swelling RESPIRATORY: Negative for cough, hemoptysis, wheezing, COPD, dyspnea or shortness of breath CARDIOVASCULAR: Negative for chest pain, leg swelling, hypertension, CHF or palpitations PHYSICAL EXAMINATION: BP 114/76 Pulse 86 Ht 157.5 cm (5' 2 ) Wt 57.2 kg (126 lb) LMP 09/14/2022 (Exact Date) SpO2 99% BMI 23.05 kg/m GENERAL: alert and appropriate, in no distress and well-hydrated, well nourished SKIN: no rash noted HEAD: normocephalic, no abnormality or lesion noted EYES: PERRL NECK: full ROM, no cervical LNs noted ACANTHOSIS: none noted EXTREMITIES: normal NEUROLOGIC: no obvious deficit ASSESSMENT: (E10.8) Type I diabetes mellitus with manifestations (HCC) (primary encounter diagnosis) Comment: PUMP DOWNLOADED AND REVIEWED WITH PATIENT. Patient is 100% manual, no closed loop for past 2 weeks. Patient was not aware that she was not in closed loop. Sugars ranging from 44-400+ Patient is not counting carbs accurately, has not changed her high carb processed diet WILL MAKE NO CHANGES TO INSULIN PUMP SETTINGS TODAY PUMP restored to CLOSED LOOP operation. Recommend patient contacts [employer] and gets software upgrade, new sensors Recommend sit with pump workplace trainer and assessor (Ronald Miller) again for education/pump support/carb counting. Recommended diet: Low carbohydrate and Low saturated fat, low simple sugar, high fiber diet Exercise minimally 150 minutes per week, increase as tolerated. Adequate hydration - 1/2 body wgt in oz of water daily, unless fluid restriction applies. I instructed the patient to monitor blood sugars 4 times per day If blood sugars are persistently high or low, to call our office. Patient to continue to follow up with her PCP and with other consultants regarding her other medical problems. Plan: COMP METABOLIC PANEL, LIPID PANEL, NONFASTING, ALBUMIN/CREAT RATIO RND UR, HGB A1C Milagros Kincaid CNP Answers submitted by the patient for this visit: Core Review of Systems (Submitted on 09/12/2022) Fever : No Night Sweats: No Recent Unintentional Weight Change: No Nasal Congestion: No Hearing Loss: No A Cough: No Difficulty Breathing?: No Chest Pain: No Irregular Heart Beat: No Leg Swelling: No Nausea: No Diarrhea: No Black Tarry Stools: No Difficulty Urinating?: No Awaken at Night More Than Once to Urinate?: No Joint Pain or Stiffness: No Muscle Aches: No Leg or Foot Discomfort at Night?: No A Rash: No Dizziness: No Headaches: No Memory Loss: No Seizures: No documented in this encounter [facility] 07-20-2022 Miscellaneous Notes Pt called to request a new script for her Insulin pump, centers, line etc be sent to [facility]. Thank you PT wanted me to give this info: Minimed TM MIHIR EN advanced 9 MM Cannula/43 tubing send flash boxes minimed TM 3ml resovour 10/box guardian TM censor 3 minimed TM 770G system 5/box Call PT at [phone] if there are any questions she said. Thanks documented in this encounter [facility] 06-25-2022 Miscellaneous Notes [employer] calling to ask that this request be faxed to [phone] Message for [employer] call center regarding patient Please contact Catracho Jung or Elvira Johnson. This order has been completed and delivered. Dulce Piña MA [employer] phoned requesting a Signed prescription for diabetic supplies A form was faxed 06/23 to [phone] Please advise [employer] [phone] option 2 /Mess Attendant Julissa Adams documented in this encounter [facility] 06-04-2022 Note HNO ID: [id number] Author: Sheela Maldonado RN Service: ? Author Type: Registered Nurse Type: Progress Notes Filed: 06/04/2022 10:00 AM Note Text: DIABETES SELF-MANAGEMENT EDUCATION AND SUPPORT Location: [facility] Type of visit: In person individual Types of DSMES: Initial/Comprehensive (add to or update ADA spreadsheet) PATIENT'S MAIN CONCERN TODAY: none Support person present for education today: spouse Cognitive ability: Alert and oriented Motivation to learn: Interested Learning barriers identified by educator: none Method of instruction: written, verbal, demonstration, and computer INTERVENTIONS/TOPICS COVERED: -Diabetes Pathophysiology: diabetes disease process, role of insulin in the body, role of glucose in the body, relationship of glucose and insulin in the body, and hepatic glucose release -Healthy Eating: impact of carbs on BG, basic carb counting, foods with carbs, fiber, carb counting tools (books, Internet, smartphone apps), and alcohol and impact on BG -Medications: site selection/rotation, basal insulin, prandial insulin, and insulin pump instruction: pump benefits , pump requirements of user, pump limitations , closed loop mode vs manual mode, insulin pump types/pros/cons, infusion set types, infusion set rotation, infusion set adherence options, suspending/restarting, and insulin pump terminology: basal, bolus, sensitivity/correction factor, carb ratio, BG target, and hmphmxw-lb-kvpso/duration DIABETES ASSESSMENT: Referring Physician: Previous Diabetes Education? Asked/not answered What are you hoping to gain from this visit? asked/not answered In your words, what is diabetes? asked/not answered What concerns you about having diabetes? asked/not answered Diabetes History: Type of Diabetes: Type 1 What year were you diagnosed? 2019 Does anyone in your family have diabetes? asked/not answered How do you learn best? 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 never How often does someone help you read your pill bottles? never How often does someone have to help you take care of your diabetes? never Major stressors:asked/not answered How do you manage stress? asked/not answered Do any of the following things get in the way of managing your diabetes? Asked/not answered Health History: Most recent eye exam: 2 years ago Most recent dental exam:Asked/not answered Most recent foot exam:2020 How often do you inspect your feet at home? Asked/Not answered Do you use tobacco? Yes, How much? Do you use alcohol? No In the past 12 months have you had any: Hospital Admissions: Asked/not answered ER Visits: Asked/not answered Primary Care Visits: Asked/not answered What are your general feelings about you overall health? Asked/not answered Medical Issues/Complications: None PAST MEDICAL HISTORY Diagnosis Date Diabetes mellitus type 1 (HCC) Most recent A1C Lab Results Component Value Date HBA1C 12.6 03/03/2022 HBA1C 13.2 04/09/2021 HBA1C 10.6 05/05/2020 HBA1C 14.2 01/08/2020 Physical Activity: Do you do a regular exercise? Asked/not answered Sick Days: How do you manage your diabetes when you are sick? Asked/not answered Sleep: Do you get at least 7 hrs of sleep most nights? asked/not answered Current Outpatient Medications Medication Sig insulin aspart U-100 (NOVOLOG U-100 INSULIN ASPART) 100 unit/mL Inject 1 unit of insulin for every 5 grams carbs PLUS SS to correct blood sugar 2 units for every 50 over 150 ~130 units TDD insulin glargine (LANTUS SOLOSTAR U-100 INSULIN) 100 unit/mL (3 mL) Inject 30 units once daily insulin aspart U-100 (NOVOLOG) 100 unit/mL (3 mL) Inject 1 unit of insulin for every 5 grams carbs PLUS SS to correct blood sugar 2 units for every 50 over 150 ~100 units blood sugar diagnostic (BLOOD GLUCOSE TEST) test strip Use as instructed lisinopril (ZESTRIL, PRINIVIL) 5 mg tablet Take 1 tablet by mouth once daily. (Patient not taking: Reported on 04/19/2022) sertraline (ZOLOFT) 50 mg tablet Take 1 tablet by mouth once daily. (Patient not taking: Reported on 04/19/2022) Insulin [place], Disposable, (BD ULTRA-FINE GRACIELA PEN NEEDLE) 32 gauge x 5/32 Use to inject Tresiba once daily No current facility-administered medications for this visit. Medications for Diabetes: Name of Medication Dose When taken How often missed Lantus novolog Injections Technique: Do you take insulin or a medication you inject for your diabetes? Yes;then if so answer the followin (more content not included)... [facility] 06-04-2022 History of Presen t illness Narrative DIABETES SELF-MANAGEMENT EDUCATION AND SUPPORT Location: [facility] Type of visit: In person individual Types of DSMES: Initial/Comprehensive (add to or update ADA spreadsheet) PATIENT'S MAIN CONCERN TODAY: none Support person present for education today: spouse Cognitive ability: Alert and oriented Motivation to learn: Interested Learning barriers identified by educator: none Method of instruction: written, verbal, demonstration, and computer INTERVENTIONS/TOPICS COVERED: -Diabetes Pathophysiology: diabetes disease process, role of insulin in the body, role of glucose in the body, relationship of glucose and insulin in the body, and hepatic glucose release -Healthy Eating: impact of carbs on BG, basic carb counting, foods with carbs, fiber, carb counting tools (books, Internet, smartphone apps), and alcohol and impact on BG -Medications: site selection/rotation, basal insulin, prandial insulin, and insulin pump instruction: pump benefits , pump requirements of user, pump limitations , closed loop mode vs manual mode, insulin pump types/pros/cons, infusion set types, infusion set rotation, infusion set adherence options, suspending/restarting, and insulin pump terminology: basal, bolus, sensitivity/correction factor, carb ratio, BG target, and eohavpo-bv-bzvxm/duration DIABETES ASSESSMENT: Referring Physician: Previous Diabetes Education? Asked/not answered What are you hoping to gain from this visit? asked/not answered In your words, what is diabetes? asked/not answered What concerns you about having diabetes? asked/not answered Diabetes History: Type of Diabetes: Type 1 What year were you diagnosed? 2019 Does anyone in your family have diabetes? asked/not answered How do you learn best? 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 never How often does someone help you read your pill bottles? never How often does someone have to help you take care of your diabetes? never Major stressors:asked/not answered How do you manage stress? asked/not answered Do any of the following things get in the way of managing your diabetes? Asked/not answered Health History: Most recent eye exam: 2 years ago Most recent dental exam:Asked/not answered Most recent foot exam:2020 How often do you inspect your feet at home? Asked/Not answered Do you use tobacco? Yes, How much? Do you use alcohol? No In the past 12 months have you had any: Hospital Admissions: Asked/not answered ER Visits: Asked/not answered Primary Care Visits: Asked/not answered What are your general feelings about you overall health? Asked/not answered Medical Issues/Complications: None PAST MEDICAL HISTORY Diagnosis Date Diabetes mellitus type 1 (HCC) Most recent A1C Lab Results Component Value Date HBA1C 12.6 03/03/2022 HBA1C 13.2 04/09/2021 HBA1C 10.6 05/05/2020 HBA1C 14.2 01/08/2020 Physical Activity: Do you do a regular exercise? Asked/not answered Sick Days: How do you manage your diabetes when you are sick? Asked/not answered Sleep: Do you get at least 7 hrs of sleep most nights? asked/not answered Current Outpatient Medications Medication Sig insulin aspart U-100 (NOVOLOG U-100 INSULIN ASPART) 100 unit/mL Inject 1 unit of insulin for every 5 grams carbs PLUS SS to correct blood sugar 2 units for every 50 over 150 ~130 units TDD insulin glargine (LANTUS SOLOSTAR U-100 INSULIN) 100 unit/mL (3 mL) Inject 30 units once daily insulin aspart U-100 (NOVOLOG) 100 unit/mL (3 mL) Inject 1 unit of insulin for every 5 grams carbs PLUS SS to correct blood sugar 2 units for every 50 over 150 ~100 units blood sugar diagnostic (BLOOD GLUCOSE TEST) test strip Use as instructed lisinopril (ZESTRIL, PRINIVIL) 5 mg tablet Take 1 tablet by mouth once daily. (Patient not taking: Reported on 04/19/2022) sertraline (ZOLOFT) 50 mg tablet Take 1 tablet by mouth once daily. (Patient not taking: Reported on 04/19/2022) Insulin [place], Disposable, (BD ULTRA-FINE GRACIELA PEN NEEDLE) 32 gauge x 5/32 Use to inject Tresiba once daily No current facility-administered medications for this visit. Medications for Diabetes: Name of Medication Dose When taken How often missed Lantus novolog Injections Technique: Do you take insulin or a medication you inject for your diabetes? Yes;then if so answer the following questions: How do you inject your medicine Pen Where are your injections done? Stomach/abdomen and Buttocks Who prepares your syringes, pen, or pump infusion set? Self Who gives you injections or changes your pump sites? Me Where do you throw away your needles? Trash Blood Sugar Monitoring: Do you have a blood sugar monitor? Yes; Guardian Sensor Management of Low Blood Sugar: What has been your lowest blood sugar in the last month? asked/not answered What are your symptoms of lows?Shaky, Sweaty, and Dizzy/lightheaded How do you treat lows? asked/not answered Do you drive? yes Management of High Blood Sugar: What has been you highest blood sugar in the last month? asked/not answered What are your symptoms of highs? Asked/not answered How do you treat your highs? asked/not answered Meal Planning: Are you currently following any meal plan? Carb counting Reproductive Status (Females): Have you reached menopause? No. EDUCATION HANDOUTS: CHO counting PP and BG Rocket LEARNING RESPONSE: Diabetes pathophysiology: Demonstrated understanding/competency today or at previous visit Healthy eating: Demonstrated understanding/competency today or at previous visit Being active: Not assessed at the visit Taking medications: Demonstrated understanding/competency today or at previous visit Monitoring glucose: Demonstrated understanding/competency today or at previous visit Acute complications: Not assessed at the visit Chronic complications: Not assessed at the visit Healthy coping: Not assessed at the visit Diabetes distress and support: Not assessed at the visit PATIENT SELECTED THE FOLLOWING GOALS: -Pt declined POSSIBLE FUTURE TOPICS: 1. The following topics were not assessed due to time limitations, but should be assessed at the next visit: support system, physical activity, sick days, sleep, management of low blood sugar, management of high blood sugar, meal planning, and reproductive status. 2. The following topics should be taught or reinforced at the next visit: healthy eating , being active, acute complications, healthy coping, and diabetes distress and support. DIABETES EDUCATION PLAN: Individual follow-up declined Time Spent (Minutes): 60 This visit note will be communicated to the healthcare provider via access to shared medical record. SIGNATURE: Sheela Maldonado RN PATIENT NAME: Mya Rubio DATE: June 04, 2022 TIME: 8:07 AM PAGER: documented in this encounter [facility] 05-25-2022 Miscellaneous Notes Left message on voice mail to call this museum educator at [phone]. documented in this encounter [facility] 05-14-2022 Miscellaneous Notes Spoke with pt and information listed below and then was cut off. Called pt right back and left a message to call the office to schedule apt. Nevaeh Salazar LPN Patient read [facility] message. Currently no appointment scheduled as of yet. Elvira Branch LPN Needs to schedule OV. Last visit more than 1 year ago. Patient phones requesting refills as follows: Requested Prescriptions Pending Prescriptions Disp Refills lisinopril (ZESTRIL, PRINIVIL) 5 mg tablet 30 tablet 1 Sig: Take 1 tablet by mouth once daily. sertraline (ZOLOFT) 50 mg tablet 30 tablet 2 Sig: Take 1 tablet by mouth once daily. RIO Brandst message to patient to advise she is past due for OV. MONI 08/12/20 NOV no upcoming appt. Please review and advise. Betty Mason LPN documented in this encounter [facility] 05-11-2022 Miscellaneous Notes Provider signed I sent back to Elvira Johnson.conformation received placed in file. Dulce Piña MA documented in this encounter [facility] 04-20-2022 Miscellaneous Notes Faxed to Catracho at [employer] request for office note regarding CGM supplies. Per Dulce's request to be faxed to them. Placed in file. Felicitas Pichardo MA documented in this encounter [facility] 04-20-2022 Miscellaneous Notes Faxed over OV notes/with labs included to Bharath at [employer] at . Bharath is calling from [employer] requesting the patients office notes from 04/19/2022. Please fax the office notes to [phone]. Thank you documented in this encounter [facility] 04-19-2022 Note HNO ID: [id number] Author: Milagros Kincaid APRN.PUBLIC HEALTH REPRESENTATIVE Service: ? Author Type: Nurse Practitioner Type: Progress Notes Filed: 04/19/2022 3:19 PM Note Text: OFFICE VISIT PROGRESS NOTE CC Mya Rubio is a 26 year old female who presents today for blood sugar review, insulin dosing adjust. HPIDiagnosed with diabetes mellitus type I, uncontrolled, ~ 12/2019 Last endocrine OV 04/09/2021 Some elements copied from my note 04/09/2021 which have been updated where appropriate, and all reflect current medical decision making from date of this visit. Still having issues with counting carbs, Saw RN for DM teaching a year ago, doesn't understand insulin to carb ratio I eat all the time, I'm hungry all the time, I eat junk food I'm constantly thirsty Admits has not been checking her blood sugars as her insurance will not cover CGM Had 'drug store meter' at home which she has no strips for Eats all day, but only takes insuline 1-2 times per day, does take basal daily until recently as not covered for her Reports fatigue 'all the time' Continues to lose weight. CURRENT HPI 04/19/2022 Saw ENDO [employer]ICE PRESIDENT [employer] for carb counting/insulin to carb ratio instruction ? no Sts is trying to get insulin pump looking [employer] Admits skips her insulin shots quite a bit - insulin stings when she injects Very frustrated/angry about why this happened to her in the first place CURRENT DM MEDS LANTUS 20 units once daily NOVOLOG 5-5-5 PLUS SS#2 (~ 20 units with meals) patient will eat 3 meals 80 grams per meal ~ SMBG Type of Monitor: Other previously using Freestyle yuval 2, but ran out of sensors and did not fish bait picker from pharmacy Using glucometer at this time FREESTYLE LITE - checks her sugars, runs between 300-HI all day long Frequency of Monitorin times a day BG Values: Running 300-HI all day Values over past week: Highest ; Lowest Hypoglycemia: No can tell if low - starts at 97 Diet: highly processed Exercise: none DM REVIEW OF SYSTEMS Last Eye Exam : 2021 - does see yearly Last Podiatry Exam: 04/2020 Cardiorespiratory: negative, denies chest pain, pressure Claudication: no Dyslipidemia: No High Blood Pressure: Yes, controlled on medication CURRENT LABS Component Latest Ref Rng AND Units 03/03/2022 Glucose 74 - 99 mg/dL 638 (H) BUN 7 - 21 mg/dL 16 Creatinine 0.58 - 0.96 mg/dL 0.51 (L) Sodium 136 - 144 mmol/L 129 (L) Potassium 3.7 - 5.1 mmol/L 5.2 (H) Chloride 97 - 105 mmol/L 93 (L) CO2 22 - 30 mmol/L 23 Anion Gap 9 - 18 mmol/L 13 eGFR >=60 mL/min/1.73mA? 132 Hemoglobin A1C 4.3 - 5.6 % 12.6 (H) Estimated Average Glucose mg/dL 315 Microsomal Antibody <5.6 IU/mL <1.0 TSH 0.270 - 4.200 mIU/L 1.100 PAST MEDICAL HISTORY Diagnosis Date Diabetes mellitus type 1 (HCC) PAST SURGICAL HISTORY Procedure Laterality Date FOOT SURGERY HX Right Screw put in broken foot. FAMILY HISTORY Problem Relation Age of Onset No Known Problems Mother other (motorcycle accident) Father No Known Problems Sister No Known Problems Brother No Known Problems Maternal Grandmother No Known Problems Maternal Grandfather No Known Problems Paternal Grandmother other (lung cancer) Paternal Grandfather No Known Problems Brother Social History Tobacco Use Smoking status: Every Day Packs/day: 0.50 Years: 4.00 Pack years: 2.00 Types: Cigarettes Smokeless tobacco: Never Vaping Use Vaping Use: Never used Substance Use Topics Alcohol use: Not Currently Drug use: Never Current Outpatient Medications Medication Sig insulin aspart U-100 (NOVOLOG) 100 unit/mL (3 mL) Inject 5 units subcutaneously before breakfast, lunch, and dinner PLUS sliding scale( add 2 units for every 50 above 150 mg/dl) Max daily: 30 units flash glucose sensor (FREESTYLE YUVAL 2 SENSOR) kit USE FOR CONTINUOUS GLUCOSE MONITORING. TYPE I DM. E10.65. MULTIPLE INSULIN INJECTIONS. insulin glargine (LANTUS SOLOSTAR U-100 INSULIN) 100 unit/mL (3 mL) Inject 20 units once daily blood sugar diagnostic (BLOOD GLUCOSE TEST) test strip Use as instructed lisinopril (ZESTRIL, PRINIVIL) 5 mg tablet Take 1 tablet by mouth once daily. sertraline (ZOLOFT) 50 mg tablet Take 1 tablet by mouth once daily. Insulin [place], Disposable, (BD ULTRA-FINE GRACIELA PEN NEEDLE) 32 gauge x 5/32 Use to inject Tresiba once daily No current facility-administered medications for this visit. ALLERGIES No Known Allergies REVIEW OF SYSTEMS - POSITIVES IN BOLD Review of Systems Constitutional: Negative for fatigue, night sweats and recent unintentional weight change. HENT: Negative for trouble swallowing, postnasal drip and thyroid pain (lower neck). Eyes: Negative for visual disturbance. Respiratory: Negative for difficulty breathing. Cardiovascular: Negative for chest pain, leg swelling and claudication. Gastrointestinal: Negative for heartburn, nausea, vomiting, abdominal pain, diarrhea and co (more content not included)... [facility] 04-19-2022 History of Presen t illness Narrative OFFICE VISIT PROGRESS NOTE CC Mya Rubio is a 26 year old female who presents today for blood sugar review, insulin dosing adjust. HPIDiagnosed with diabetes mellitus type I, uncontrolled, ~ 12/2019 Last endocrine OV 04/09/2021 Some elements copied from my note 04/09/2021 which have been updated where appropriate, and all reflect current medical decision making from date of this visit. Still having issues with counting carbs, Saw RN for DM teaching a year ago, doesn't understand insulin to carb ratio I eat all the time, I'm hungry all the time, I eat junk food I'm constantly thirsty Admits has not been checking her blood sugars as her insurance will not cover CGM Had 'drug store meter' at home which she has no strips for Eats all day, but only takes insuline 1-2 times per day, does take basal daily until recently as not covered for her Reports fatigue 'all the time' Continues to lose weight. CURRENT HPI 04/19/2022 Saw ENDO [employer] for carb counting/insulin to carb ratio instruction ? no Sts is trying to get insulin pump looking [employer] Admits skips her insulin shots quite a bit - insulin stings when she injects Very frustrated/angry about why this happened to her in the first place CURRENT DM MEDS LANTUS 20 units once daily NOVOLOG 5-5-5 PLUS SS#2 (~ 20 units with meals) patient will eat 3 meals 80 grams per meal ~ SMBG Type of Monitor: Other previously using Freestyle yuval 2, but ran out of sensors and did not fish bait picker from pharmacy Using glucometer at this time FREESTYLE LITE - checks her sugars, runs between 300-HI all day long Frequency of Monitorin times a day BG Values: Running 300-HI all day Values over past week: Highest ; Lowest Hypoglycemia: No can tell if low - starts at 97 Diet: highly processed Exercise: none DM REVIEW OF SYSTEMS Last Eye Exam : 2021 - does see yearly Last Podiatry Exam: 04/2020 Cardiorespiratory: negative, denies chest pain, pressure Claudication: no Dyslipidemia: No High Blood Pressure: Yes, controlled on medication CURRENT LABS Component Latest Ref Rng & Units 03/03/2022 Glucose 74 - 99 mg/dL 638 (H) BUN 7 - 21 mg/dL 16 Creatinine 0.58 - 0.96 mg/dL 0.51 (L) Sodium 136 - 144 mmol/L 129 (L) Potassium 3.7 - 5.1 mmol/L 5.2 (H) Chloride 97 - 105 mmol/L 93 (L) CO2 22 - 30 mmol/L 23 Anion Gap 9 - 18 mmol/L 13 eGFR >=60 mL/min/1.73m 132 Hemoglobin A1C 4.3 - 5.6 % 12.6 (H) Estimated Average Glucose mg/dL 315 Microsomal Antibody <5.6 IU/mL <1.0 TSH 0.270 - 4.200 mIU/L 1.100 PAST MEDICAL HISTORY Diagnosis Date Diabetes mellitus type 1 (HCC) PAST SURGICAL HISTORY Procedure Laterality Date FOOT SURGERY HX Right Screw put in broken foot. FAMILY HISTORY Problem Relation Age of Onset No Known Problems Mother other (motorcycle accident) Father No Known Problems Sister No Known Problems Brother No Known Problems Maternal Grandmother No Known Problems Maternal Grandfather No Known Problems Paternal Grandmother other (lung cancer) Paternal Grandfather No Known Problems Brother Social History Tobacco Use Smoking status: Every Day Packs/day: 0.50 Years: 4.00 Pack years: 2.00 Types: Cigarettes Smokeless tobacco: Never Vaping Use Vaping Use: Never used Substance Use Topics Alcohol use: Not Currently Drug use: Never Current Outpatient Medications Medication Sig insulin aspart U-100 (NOVOLOG) 100 unit/mL (3 mL) Inject 5 units subcutaneously before breakfast, lunch, and dinner PLUS sliding scale( add 2 units for every 50 above 150 mg/dl) Max daily: 30 units flash glucose sensor (FREESTYLE YUVAL 2 SENSOR) kit USE FOR CONTINUOUS GLUCOSE MONITORING. TYPE I DM. E10.65. MULTIPLE INSULIN INJECTIONS. insulin glargine (LANTUS SOLOSTAR U-100 INSULIN) 100 unit/mL (3 mL) Inject 20 units once daily blood sugar diagnostic (BLOOD GLUCOSE TEST) test strip Use as instructed lisinopril (ZESTRIL, PRINIVIL) 5 mg tablet Take 1 tablet by mouth once daily. sertraline (ZOLOFT) 50 mg tablet Take 1 tablet by mouth once daily. Insulin [place], Disposable, (BD ULTRA-FINE GRACIELA PEN NEEDLE) 32 gauge x Use to inject Tresiba once daily No current facility-administered medications for this visit. ALLERGIES No Known Allergies REVIEW OF SYSTEMS - POSITIVES IN BOLD Review of Systems Constitutional: Negative for fatigue, night sweats and recent unintentional weight change. HENT: Negative for trouble swallowing, postnasal drip and thyroid pain (lower neck). Eyes: Negative for visual disturbance. Respiratory: Negative for difficulty breathing. Cardiovascular: Negative for chest pain, leg swelling and claudication. Gastrointestinal: Negative for heartburn, nausea, vomiting, abdominal pain, diarrhea and constipation. Genitourinary: Positive for menstruating. Negative for urgency, frequent urination, slower stream, irregular menses and amenorrhea. Musculoskeletal: Negative for myalgias, muscle weakness and bone pain. Skin: Negative for skin color change. Neurological: Negative for dizziness, headaches and numbness. Endo/Heme/Allergies: Negative for polydipsia, cold intolerance when others are comfortable, heat intolerance when others are comfortable, hot flashes, flushing and changes in body hair. PHYSICAL EXAMINATION: BP 128/80 Pulse (!) 33 Ht 157.5 cm (5' 2 ) Wt 53.5 kg (118 lb) LMP 01/07/2021 BMI 21.58 kg/m GENERAL: alert and appropriate, in no distress and well-hydrated, well nourished SKIN: no rash noted HEAD: normocephalic, no abnormality or lesion noted EYES: PERRL NECK: full ROM, no cervical LNs noted ACANTHOSIS: none noted EXTREMITIES: normal NEUROLOGIC: no obvious deficit ASSESSMENT: (E10.65) Poorly controlled type 1 diabetes mellitus (HCC) (primary encounter diagnosis) Comment: long discussion with patient re: poorly controlled DM and secondary issues Patient does know how to count carbs She does understand why she needs to take insulin Patient sts is eating ~ 80 units of carbs per meals, when she does do injection with meal, minimally 20 units Takes Lantus more regularly. Is frustrated and angry with the process and admits she procrastinates because of it DO RECOMMEND pump with sensors for patient, feel she would do better with continuous insulin infusion. Patient will be looking at [employer] insulin pump system RECOMMEND INCREASE BASAL TO 30 units once daily Use 1 for 5 insulin to carb ratio plus SS#2 for correction Recommended diet: Low carbohydrate and Low saturated fat, low simple sugar, high fiber diet Exercise minimally 150 minutes per week, increase as tolerated. Adequate hydration - 1/2 body wgt in oz of water daily, unless fluid restriction applies. I instructed the patient to monitor blood sugars 4 times per day If blood sugars are persistently high or low, to call our office. Patient to continue to follow up with her PCP and with other consultants regarding her other medical problems. Plan: COMP METABOLIC PANEL, LIPID PANEL, NONFASTING, ALBUMIN/CREAT RATIO RND UR, HGB A1C, TSH BLD, T4 FREE/FREE THYROX Milagros Knicaid CNP documented in this encounter [facility] 03-30-2022 Miscellaneous Notes Received from [facility] request for CGM supplies. Filled out paperwork kplaced in providers in box for review. Felicitas Pichardo MA documented in this encounter [facility] 03-04-2022 Miscellaneous Notes Please call the patient and check on her. If patient is having any symptoms, nausea/vomiting, unable to keep fluids down, this needs to be forwarded to nurse triage. There is also another message from her primary care advising her to go to the ER Please ask the patient if she went to the ER as she had indicated she would Her blood glucose was very elevated - 638 in a 26 year patient. Her diabetes is very poorly controlled with A1C of 12.6% Please have patient submit blood sugars as soon as she can for insulin dosing adjust Component Latest Ref Rng & Units 03/03/2022 Glucose 74 - 99 mg/dL 638 (H) BUN 7 - 21 mg/dL 16 Creatinine 0.58 - 0.96 mg/dL 0.51 (L) Sodium 136 - 144 mmol/L 129 (L) Potassium 3.7 - 5.1 mmol/L 5.2 (H) Chloride 97 - 105 mmol/L 93 (L) CO2 22 - 30 mmol/L 23 Anion Gap 9 - 18 mmol/L 13 eGFR >=60 mL/min/1.73m 132 Hemoglobin A1C 4.3 - 5.6 % 12.6 (H) Estimated Average Glucose mg/dL 315 Microsomal Antibody <5.6 IU/mL <1.0 TSH 0.270 - 4.200 mIU/L 1.100 documented in this encounter [facility] 03-04-2022 Miscellaneous Notes Phoned patient and advised that she should go ER for eval and tx CM and follow up with endocrinology tomorrow. Patient stated I'm on my way to [place] so I'll go to the ER when I get back tomorrow. Advised patient that there are ER's in [place] she could go to and then follow up with endocrinology tomorrow. Patient then remarked sarcastically Um, yeah ok. And several people laughing and giggling in back ground. Reviewed. Should follow up with endocrinology CM to go over her labs. Would have her call them tomorrow. Advised pt per - Recommend ER evaluation to make sure this is not progressing to DKA. Pt laughing thru conversation, states ' it always runs high strongly encouraged pt to seek care in ED for evaluation. Pt verbalized understanding. This is a type I Diabetic who is managed by endocrinology for her insulin adjustments. Lab ordered by endocrinology and completed yesterday. Looks like her Anion gap is closed, but her potassium level is high. Recommend ER evaluation to make sure this is not progressing to DKA. Spoke with Dominique from lab pt Glucose 638 documented in this encounter [facility] 03-02-2022 Miscellaneous Notes Printed last office notes placed all requested documents in providers office for review and signature.Called patient she has not completed her labs,she stated she will do them in [place].they are needed to complete her order.Placed in file awaiting lab results Dulce Piña MA Bharath is calling from [employer] regarding 2 CMN forms he faxed over. He is asking for the 2 forms to be completed and faxed back to him at [phone] along with the 2 most recent office notes and the pump download. Thank you documented in this encounter [facility] 07-23-2021 Miscellaneous Notes Resent request to share yuval information with the practice. See patient question. Thank you Dulce Piña MA documented in this encounter [facility] 07-20-2021 Miscellaneous Notes Requester: Patient Patients last Endocrinology visit occurred.04/09/21 Follow-up evaluation has been established NA Pending Prescriptions Disp Refills INSULIN ASPART (U-100) 100 UNIT/ML (3 ML) SUBCUTANEOUS PEN 15 mL 3 Sig: Inject 5 units subcutaneously before breakfast, lunch, and dinner PLUS sliding scale( add 2 units for every 50 above 150 mg/dl) Max daily: 30 units TITI: Yes If patient is due for an appointment please route to provider for refill consideration and also to the endo scheduling pool. PSS NOTE: Patient needs scheduled [id number] No Dulce Piña MA documented in this encounter [facility] 07-07-2021 History of Presen t illness Narrative [facility] OUT[facility]IENT REHABIL[facility]ATION Evaluation Today's Date 07/07/2021 Patient Name: Mya Rubio Date of : 1995 Case Name: R hand closed displaced fx of base of 4th MCP Functional Diagnosis: 1. Closed displaced fracture of base of fourth metacarpal bone of right hand with routine healing, subsequent encounter Clinical Information: Subjective All subjective data collected as part of a multidisciplinary team: Yes Referring Diagnosis: Closed displaced fx of base of 4th MCP bone of R hand with routine healing, subsequent encounter Follow-up with physician: 07/23/2021 Patient accompanied by: unaccompanied History of Present Illness Date of Onset: 05/15/2021 Surgery Date: 05/22/2021 Days Post-Op: 46 Subjective History: Pt arrived for IE of the R hand. Pt had a closed displaced fx of the base of the R 4th MCP bone when she punched a brick wall out of anger while at the [facility] custodial. Pt had to have surgery of the R hand with status post right hand 3rd, 4th and 5th percutaneous pin fixation of carpometacarpal fracture dislocations. Pins were removed on 06/25/2021. Pt reports she is not having a whole lot of pain, it starts to hurt when I start to do dishes . Pt does present to the OT clinic with increased edema and bruising on the dorsal R hand. Pt is also reporting increased pain in the palmar hand surface with considerable stiffness in the R hand, especially the MP jts. Pt denies any N/T and no burning in the hand, although she had these sensations initially when the pins were removed. The pt's most recent x-ray was taken on 06/25/2021 with the x-ray report stating the following: FINDINGS: Two views of the right hand. Interval removal of K-wires. Anatomic alignment of the 3rd through 5th metacarpals with small fracture fragment seen at the bases. No new additional fractures. Normal alignment throughout the remaining hand. No soft tissue gas. IMPRESSION: Interval removal of K-wires with anatomic alignment of the 3rd through 5th metacarpals. Small fracture fragments seen at the bases. 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 PMH includes anxiety, depression, DM, and HBP. Previous Treatment for this condition: No Previous Imaging: X-ray Hand dominance: right Overall rating of health: Fair Pain Scale Pain location: hand Average Pain: 0/10 Pain at highest: 4/10 ( stiffness ) Personal Goals: To be able to use my hand so I can get a job . Social Support: Additional Social Support: Lives with her girlfriend Rastafari, social, or cultural considerations to be made aware of before starting treatment: No Red Flags: None Comments: Barriers to Care: None Fall risk screening Fallen 2 or more times in the last 12 months: No Injured as a result of a fall in the last 12 months: No Rastafari, social, or cultural considerations to be made aware of before starting treatment: No Wrist/Hand Right Wrist/Hand Range of Motion: Wrist Flexion Active: 65 Wrist Extension: Active: 60 Fingertip to DPC IF: .8 Hand AROM MCP PIP DIP NOGUEIRA Thumb Index 60 100 80 240 Middle 75 100 80 255 Ring 75 -10/105 70 235 Small 60 100 -15/70 215 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 Treatments: Occupational Therapy Exercise Log - 07/07/21 1935 Therapeutic Exercise (41499) Intervention Review tendon glides and digit AROM exs Parameters for HEP Intervention Review edema management techniques- provide handout Intervention Box and blocks Parameters as tolerated Intervention Theraputty Parameters yellow- instruct in use for rolling and gentle pinch/telegrapher agent Additional Exercises Add more exercises? Yes Modalities Modalities Fluidotherapy Parameters 10-15' Add more modalities? Yes Ultrasound Intervention US Parameter 100% 1MHz @ .4 to dorsal or palmar hand for 8' Treatment Plan: Frequency of Visits: 3 times per week Duration: 6 weeks Interventions: Therapeutic Exercise (20339), Neuromuscular Re-Education (68507), Therapeutic/ Functional Activities (84805), Hot/Cold Pack (37576), Ultrasound (34575), Paraffin Bath (34633) and Fluidotherapy Rehab Potential: excellent Goals: Occupational Therapy Ortho goals: CARRYING/MOVING/HANDLING: Patient will open normal, tight jar using affected UE with No difficulty in 6 weeks. 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 IMPAIRMENT: Patient will demo increased right 3 point pinch strength from 8 lbs to at least 12 lbs for improved use with ADLs/IADLS in 6 weeks. OTHER: Patient will increase FOTO score from 64 to at least 75 to show improved functional outcome in 6 weeks. OTHER: Patient will be able to properly demonstrate independence with HEP in 6 weeks. Patient Education provided: Provided education on hand anatomy related to symptoms via pictures. Issued visual HEP with edema management techniques of contrast bath, edema glove, and use of yellow sponge in warm water. Pt was also instructed in tendon glide and digit AROM exs with handout provided. Instructed client to use heat prior to exercises to improve tissue extensibility prior to stretches. Clinical Impression: Pt is a 26 y.o female who presents to outpatient OT services with s/p right hand 3rd, 4th and 5th percutaneous pin fixation of carpometacarpal fracture dislocations. Upon assessment, pt has been found with the following impairments: decreased AROM of R hand, decreased telegrapher agent and prehension strength, increased edema, and increased pain. The documented impairments result in the following functional limitations: difficulty completing resisted grasping and pinching tasks, difficulty with lifting and carrying weighted items, and difficulty with household tasks such as washing dishes and resisted meal prep tasks. PMH includes anxiety, depression, DM, and HBP. The pt would benefit from skilled OT services focused on the above listed impairments and limitations in order to safely progress pt to their desired level of function. This is a moderate complexity evaluation. Pt to be discharged from OP OT services if/when goals are met, if they fail to make progress with conservative management in OT, if their level of progress plateaus, or if they do not maintain compliance with attendance or HEP. At this time, it is my clinical judgment that services are medically necessary Keturah Gauthier OT STATE LICENSE, [id number] documented in this encounter [facility] 06-04-2021 History of Presen t illness Narrative HISTORY OF PRESENT ILLNESS Mya Rubio comes in today for followup of her 3rd, 4th and 5th carpometacarpal dislocation. At this point in time, the patient is doing well. PHYSICAL EXAMINATION Cast removed. Skin is intact. Neuro intact. 2+ pulses. No erythema. No lymphangitis. No cellulitis. IMAGING X-rays of the right hand, 3 views, show anatomic alignment of 3rd, 4th and 5th metacarpocarpal junction. IMPRESSION 2 weeks status post closed reduction with percutaneous pin fixation, left 3rd, 4th and 5th carpometacarpal dislocation. PLAN At this point in time, will place her back in a protective cast. I will see her in 3 weeks for cast off, pin removal, and repeat x-rays. documented in this encounter [facility] 05-22-2021 Note Formatting of this n ote is different from the original. Addendum created 05/22/21 9479 by Goran Woody MD Cosign clinical note [facility] 05-22-2021 Miscellaneous Notes Addendum created 05/22/21 1639 by Goran Woody MD Cosign clinical note documented in this encounter [facility] 05-22-2021 Anesthesiology Postoperative evaluation and management note Anesthesia Post Evaluation PACU Vitals 05/22/2021 1059 - 05/22/2021 1108 05/22/2021 1103 BP: 120/76 Temp: 36.1 C Pulse: 81 Resp: 16 SpO2: 100 % * * Refer to nursing documentation for PACU vitals * * Patient participation: patient participated Mental status: sleepy but conscious Pain management: adequate Anesthetic complications: no Nausea / vomiting: no Respiratory / airway status: airway patent and nasal cannula Postoperative hydration: acceptable Comment: Patient has satisfactorily recovered from her anesthetic. [facility] Work Phone: 05-22-2021 Surgical operatio n note Anesthesia Post Evaluation PACU Vitals 05/22/2021 1059 - 05/22/2021 1108 05/22/2021 1103 BP: 120/76 Temp: 36.1 C Pulse: 81 Resp: 16 SpO2: 100 % * * Refer to nursing documentation for PACU vitals * * Patient participation: patient participated Mental status: sleepy but conscious Pain management: adequate Anesthetic complications: no Nausea / vomiting: no Respiratory / airway status: airway patent and nasal cannula Postoperative hydration: acceptable Comment: Patient has satisfactorily recovered from her anesthetic. Associated Order(s): Supraglottic Airway Supraglottic Airway Mask ventilation: mask ventilation not attempted Final type: LMA Final size: 3 Insertion attempts: 1 Placement verification: auscultation and end tidal CO2 Secured by: tape Lip/tooth/tongue trauma: no *See MAR for medication administration ANESTHESIA PREPROCEDURE EVALUATION Anesthesia Plan ASA: 3 Type: general Airway: supraglottic airway Induction: intravenous Anesthetic plan and risks as outlined in the consent discussed with: patient Plan discussed with: [employer] Physical Exam Airway Mallampati: II TM Distance: >3 FB Neck ROM: full Mouth opening: >3 FB Cardiovascular - normal Rhythm: regular Pulmonary - normal Breath sounds are clear to auscultation Neurological Mental Status: alert Upper extremities strength is normal and sensation is normal Lower extremities: strength is normal and sensation is normal Dental Dental exam is normal and age appropriate Review of Systems / Medical History - Reviewed: patient summary, anesthesia history, nursing notes, medical history, H&P and labs / results Neurological / Psychological Positive: depression Negative: psychiatric history Cardiovascular Positive: hypertension Endocrine / Musculoskeletal Positive: type 1 diabetes poorly controlled fracture documented in this encounter [facility] Events Date Time Event Comment 05/22/2021 0836 0950 AN Equip Check 0959 An Start 0959 Patient Verification 0959 An Start Data 1005 An Induction 1007 An LMA 1007 Anesthesia Ready 1055 [facility] OR 05 1057 An LMA Removed 1059 an stop data 1107 Handoff 1108 An Stop Meds * Agents No agents on file. * Blood No blood administrations on file. Lines, Drains, and Airways Type Details Placement Removal Wound 05/22/21; Acute; Surgical Wou; Finger(s); Left, Posterior; Surgical Bree; Surgical Adhesive; 4x4's, soft roll, hard cast 05/22/21 0000 by Herman Lamas RN Peripheral IV Placement Date: 05/22/21; Placement Time: 0804; Orientation: Left, Posterior; Location: Hand; Site Prep: Alcohol; Local Anes: None; Inserted by: Clint Reyna RN; Patient Tolerance: Tolerated well; Removal Date: 05/22/21; Removal Time: 1308; Removal Reason: Per order 05/22/21 0804 by Geetha Payan RN 05/22/21 1308 by Tayla Anderson RN Supraglottic Airway Placement Date: 05/22/21; Placement Time: 1034 (created via procedure documentation); Mask Ventilation: Mask ventilation not attempted; Size: 3; Insertion Attempts: 1; Removal Date: 05/22/21; Removal Time: 1057 05/22/21 1034 by NELL Ambrose 05/22/21 1057 by NELL Ambrose documented in this encounter [id number] Anesthesiology procedure note* Anesthesia Procedure Notes - NELL Ambrose - 05/22/2021 10:34 AM ESTAssociated Order(s): Supraglottic Airway Supraglottic Airway Mask ventilation: mask ventilation not attempted Final type: LMA Final size: 3 Insertion attempts: 1 Placement verification: auscultation and end tidal CO2 Secured by: tape Lip/tooth/tongue trauma: no *See MAR for medication administration [id number] Anesthesiology Preoperative evaluation and management note * Anesthesia Preprocedure Evaluation - Goran Woody MD - 05/22/2021 8:33 AM EST ANESTHESIA PREPROCEDURE EVALUATION Anesthesia Plan ASA: 3 Type: general Airway: supraglottic airway Induction: intravenous Anesthetic plan and risks as outlined in the consent discussed with: patient Plan discussed with: [employer]ER Physical Exam Airway Mallampati: II TM Distance: >3 FB Neck ROM: full Mouth opening: >3 FB Cardiovascular - normal Rhythm: regular Pulmonary - normal Breath sounds are clear to auscultation Neurological Mental Status: alert Upper extremities strength is normal and sensation is normal Lower extremities: strength is normal and sensation is normal Dental Dental exam is normal and age appropriate Review of Systems / Medical History - Reviewed: patient summary, anesthesia history, nursing notes, medical history, H&P and labs /results Neurological / Psychological Positive: depression Negative: psychiatric history Cardiovascular Positive: hypertension Endocrine / Musculoskeletal Positive: type 1 diabetes poorly controlled fracture [id number] History of Present illness Narrative* Sabiha Best CNP - 05/18/2021 4:44 PM EST [facility] [address] [facility] [address] [facility] [id number] Chief Complaint Patient presents with Right Hand - Injury Mya Rubio, 25 year old female with history of Type 1 Diabetes, Hypertension and depression, presents to the office today for right handed pain. 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 She was taken to the ER and was told that she broke her hand and would have to have surgery on it. She presents today for follow up.She reports swelling and bruising to her whole right hand. She states she is able to move her fingers but not that much. She denies any numbness or tingling into the hand or fingers. She denies any changes in temp of the hand or fingers. She denies any pain in the hand at this time. She denies taking anything for pain. She is insulin dependant diabetic and last A1C was 13.2 this past Mar. The patient's past medical history, surgical history, social history, family history, medications and allergies were reviewed with the patient today and are available in the chart for further review. No Known Allergies Current Outpatient Medications: insulin aspart U-100 100 unit/mL (3 mL) InPn, Inject 5 units before breakfast, lunch and dinner plus sliding scale (add 2 Units for every 50 mg/dl above 150 mg/dl), Disp: , Rfl: Lantus Solostar U-100 Insulin 100 unit/mL (3 mL) InPn, INJECT 20 UNITS ONCE DAILY, Disp: , Rfl: lisinopriL (PRINIVIL,ZESTRIL) 5 MG tablet, Take 5 mg by mouth daily ., Disp: , Rfl: sertraline (ZOLOFT) 50 MG tablet, Take 50 mg by mouth daily ., Disp: , Rfl: Tresiba FlexTouch U-100 100 unit/mL (3 mL) InPn, Inject 10 Units under the skin nightly ., Disp: , Rfl: Past Medical History: Diagnosis Date Depression DM type 1 (diabetes mellitus, type 1) ([facility]) Hypertension Past Surgical History: Procedure Laterality Date FOOT FRACTURE SURGERY Social History Socioeconomic History Marital status: Single Tobacco Use Smoking status: Current Every Day Smoker Packs/day: 2.00 Types: Cigarettes Smokeless tobacco: Never Used Vaping Use Vaping Use: Never used Substance and Sexual Activity Alcohol use: Never Drug use: Not Currently ROS: Review of Systems Constitutional: Negative for activity change and fatigue. HENT: Negative for congestion, hearing loss and trouble swallowing. Eyes: Negative for visual disturbance. Respiratory: Negative for chest tightness and shortness of breath. Cardiovascular: Negative for chest pain and palpitations. Gastrointestinal: Negative for abdominal pain, diarrhea, nausea and vomiting. Endocrine: Negative for polydipsia, polyphagia and polyuria. Genitourinary: Negative for decreased urine volume, difficulty urinating and hematuria. Musculoskeletal: Positive for arthralgias and joint swelling. Negative for myalgias. Skin: Negative for color change, rash and wound. Allergic/Immunologic: Negative for immunocompromised state. Neurological: Negative for dizziness, weakness, light-headedness and numbness. Hematological: Does not bruise/bleed easily. Psychiatric/Behavioral: Negative for confusion and sleep disturbance. The patient is not nervous/anxious. PE: Physical Exam Constitutional: Appearance: She is well-developed. HENT: Head: Normocephalic. Eyes: Pupils: Pupils are equal, round, and reactive to light. Cardiovascular: Rate and Rhythm: Normal rate and regular rhythm. Pulmonary: Effort: Pulmonary effort is normal. Breath sounds: Normal breath sounds. Abdominal: General: Bowel sounds are normal. Palpations: Abdomen is soft. Musculoskeletal: General: Swelling, tenderness, deformity and signs of injury present. Left hand: Swelling, deformity, tenderness and bony tenderness present. Decreased range of motion. Decreased strength. Normal sensation. There is no disruption of two-point discrimination. Normal capillary refill. Normal pulse. Cervical back: Normal range of motion and neck supple. Comments: Ecchymosis noted to the right hand, worst at the 3 and 4th metacarpal joint spaces. Skin: General: Skin is warm and dry. Neurological: Mental Status: She is alert and oriented to person, place, and time. Imaging: R Hand reviewed from [facility]. Radiology read as acute oblique fracture with fragment measuring up to 11mm adjacent to the base of the radial 3rd metacarpal. The 3rd and 4th as well as possibly the 5th appear dorsally subluxated/doslocated. Possible dorsal tilt and irregularity noted in the capitate. Assessment/Plan: After examination and reviewing of the patient x-ray images, we discussed treatment options. At this time, I informed the patient that this will require surgical intervention to fix the hand. I will have Dr. Duran review these images and will order any further testing if needed.The [facility] nurse will be notified with Dr. Jaeger recommendations for the patient. She isto use otc pain medications as needed and keep the right hand in the splint until we see her for her surgery. She verbalizes understanding and is in agreement with the treatment plan. documented in this [id number] Emergency department Note* Felicitas Bourne RN - 08/11/2020 10:20 PM EDT Patient denies pain and nausea at this time. * Lolis Lopes MD - 08/11/2020 8:29 PM EDT Emergency Department Report [facility] EMERGENCY DEPARTMENT Service Date:.08/11/20 PCP: Maria Raygoza Chief Complaint: Chief Complaint Patient presents with High Blood Sugar Check BS at home and given reading of HI, fingerstick in triage= 544. States fruity breath, denies any other symptoms. Has not taken isnsulin since last month. HPI Mya Rubio is a 25 y.o. female presents to the ED today due to I blood sugar. Patient says that she's had high blood sugars today up into the 600s. Her Accu-Chek at triage was 544. The patient's been told she is a type I diabetic and she supposed use insulin. Her diagnosis was made 7 months ago and since then she's only taken the insulin occasionally. She doesn't have a reason why she doesn't take it and she is only complaining of some fatigue. She denies chest pain headaches nausea vomiting or abdominal pain she denies shortness of breath or diarrhea or dysuria. Review of Systems: Review of Systems Constitutional: Negative for activity change, appetite change, fatigue and fever. HENT: Negative for ear pain, hearing loss, rhinorrhea, sneezing and trouble swallowing. Eyes: Negative for photophobia, pain, redness and visual disturbance. Respiratory: Negative for chest tightness, shortness of breath and wheezing. Cardiovascular: Negative for chest pain, palpitations and leg swelling. Gastrointestinal: Negative for abdominal pain, anal bleeding, diarrhea and nausea. Endocrine: Negative for polydipsia, polyphagia and polyuria. Genitourinary: Negative for difficulty urinating, flank pain, hematuria and urgency. Musculoskeletal: Negative for back pain, joint swelling, neck pain and neck stiffness. Skin: Negative for color change, pallor and rash. Allergic/Immunologic: Negative for environmental allergies and immunocompromised state. Neurological: Positive for light-headedness. Negative for dizziness, seizures, syncope, weakness, numbness and headaches. Hematological: Negative for adenopathy. Does not bruise/bleed easily. Psychiatric/Behavioral: Negative for behavioral problems, confusion, dysphoric mood, hallucinationsand self-injury. The patient is not nervous/anxious. Past Medical History: Past Medical History: Diagnosis Date Diabetes mellitus Past Surgical History: Past Surgical History: Procedure Laterality Date FOOT SURGERY Right Allergies: No Known Allergies Medications: Patient's Medications New Prescriptions No medications on file Previous Medications CONTINUOUS BLOOD GLUC SENSOR (FREESTYLE YUVAL 14 DAY SENSOR) MIS Use to check blood sugars 4 timesdaily as directed INSULIN ASPART 100 UNIT/ML SOLUTION PEN-INJECTOR INJECTION Inject 5 units subcutaneously before breakfast, lunch, and dinner PLUS sliding scale( add 2 units for every 50 above 150 mg/dl) Max daily: 30 units INSULIN DEGLUDEC 100 UNIT/ML SOLUTION PEN-INJECTOR INJECTION Inject under the skin. INSULIN PEN NEEDLE (BD PEN NEEDLE GRACIELA U/F) 32G X 4 MM MISC Use to inject Tresiba once daily LISINOPRIL 5 MG TABLET Take by mouth. SERTRALINE 50 MG TABLET Take 50 mg by mouth daily. Modified Medications No medications on file Discontinued Medications No medications on file Family History: History reviewed. No pertinent family history. Social History: Social History Socioeconomic History Marital status: Single Spouse name: Not on file Number of children: Not on file Years of education: Not on file Highest education level: Not on file Occupational History Not on file Tobacco Use Smoking status: Current Every Day Smoker Packs/day: 1.00 Smokeless tobacco: Never Used Substance and Sexual Activity Alcohol use: Not Currently Drug use: Never Sexual activity: Not on file Other Topics Concern Not on file Social History Narrative Not on file Social Determinants of Health Financial Resource Strain: Difficulty of Paying Living Expenses: Food Insecurity: Worried About Running Out of Food in the Last Year: Ran Out of Food in the Last Year: Transportation Needs: Lack of Transportation (Medical): Lack of Transportation (Non-Medical): Physical Activity: Days of Exercise per Week: Minutes of Exercise per Session: Stress: Feeling of Stress : Social Connections: Frequency of Communication with Friends and Family: Frequency of Social Gatherings with Friends and Family: Attends Rastafari Services: Active Member of Clubs or Organizations: Attends Club or Organization Meetings: Marital Status: Intimate Partner Violence: Fear of Current or Ex-Partner: Emotionally Abused: Physically Abused: Sexually Abused: Physical Exam: Physical Exam Vitals and nursing note reviewed. Constitutional: General: She is not in acute distress. Appearance: She is well-developed. She is not diaphoretic. HENT: Head: Normocephalic and atraumatic. Nose: Nose normal. Mouth/Throat: Pharynx: No oropharyngeal exudate. Eyes: General: No scleral icterus. Right eye: No discharge. Left eye: No discharge. Conjunctiva/sclera: Conjunctivae normal. Pupils: Pupils are equal, round, and reactive to light. Neck: Thyroid: No thyromegaly. Vascular: No JVD. Cardiovascular: Rate and Rhythm: Normal rate and regular rhythm. Heart sounds: Normal heart sounds. No murmur heard. No friction rub. No gallop. Pulmonary: Effort: Pulmonary effort is normal. No respiratory distress. Breath sounds: Normal breath sounds. No wheezing or rales. Chest: Chest wall: No tenderness. Abdominal: General: Bowel sounds are normal. There is no distension. Palpations: Abdomen is soft. There is no mass. Tenderness: There is no abdominal tenderness. There is no guarding or rebound. Hernia: No hernia is present. Musculoskeletal: General: No tenderness or deformity. Normal range of motion. Cervical back: Normal range of motion and neck supple. Skin: General: Skin is warm and dry. Capillary Refill: Capillary refill takes less than 2 seconds. Coloration: Skin is not pale. Findings: No erythema or rash. Neurological: General: No focal deficit present. Mental Status: She is alert and oriented to person, place, and time. Cranial Nerves: No cranial nerve deficit. Motor: No abnormal muscle tone. Coordination: Coordination normal. Psychiatric: Behavior: Behavior normal. Thought Content: Thought content normal. Judgment: Judgment normal. Vital Signs During ED Visit Patient Vitals for the past 24 hrs: BP Temp Temp src Pulse Resp SpO2 Height 08/11/20 2220 105/57 71 16 95 % 08/11/202010 1.588 m (5' 2.5 ) 08/11/202009 125/81 98.5 F (36.9 C) Oral 87 14 97 % Orders/Results: Orders Placed This Encounter CHEM 7 (LYTES,BUN,CREA,GLUC) HEPATIC FUNCTION PANEL BLOOD GAS VENOUS CBC, EDIF, PLATELET KETONES (BLOOD) Glucose (POC device) sertraline 50 MG tablet lisinopril 5 MG tablet Insulin Pen Needle (BD Pen Needle Graciela U/F) 32G X 4 MM Misc Insulin Degludec 100 UNIT/ML Solution Pen-injector injection insulin aspart 100 UNIT/ML Solution Pen-injector injection Continuous Blood Gluc Sensor (Electro-PetroleumStyle Yuval 14 Day Sensor) Misc sodium chloride 0.9% IV solution 500 mL insulin regular (HumuLIN R;NovoLIN R) injection 10 Units URINALYSIS, MACRO HCG QUALITATIVE, URINE URINE MICROSCOPIC Results for orders placed or performed during the hospital encounter of 08/11/20 CHEM 7 (LYTES,BUN,CREA,GLUC) Result Value Ref Range GLUCOSE 570 (HH) 70 - 100 MG/DL BUN 15 7.0 - 20.0 MG/DL CREATININE SERUM 0.64 0.5 - 1.0 MG/DL SODIUM 128 (L) 136 - 145 MMOL/L POTASSIUM 3.8 3.5 - 5.1 MMOL/L CHLORIDE 94 (L) 98 - 107 MMOL/L CARBON DIOXIDE (CO2) 25 22 - 30 MMOL/L ESTIMATED GFR, NON AMER >60 ml/min/1.73sq.m ESTIMATED GFR, >60 ml/min/1.73sq.m GFR COMMENT Average GFR for 20-29 years old = 116. HEPATIC FUNCTION PANEL Result Value Ref Range ALBUMIN 4.1 3.5 - 5.0 G/DL BILIRUBIN, TOTAL 0.7 0.2 - 1.2 MG/DL ALKALINE PHOSPHATASE 108 38 - 126 IU/L AST 16 15 - 41 IU/L BILIRUBIN, DIRECT 0.0 0.0 - 0.2 MG/DL PROTEIN, TOTAL 6.7 6.3 - 8.2 GM/DL ALT 16 14 - 54 IU/L BLOOD GAS VENOUS Result Value Ref Range pH Venous 7.430 (H) 7.31 - 7.41 PCO2 41.3 41 - 51 mmHg PO2,VENOUS OR CAP 160.0 (H) 35 - 42 mmHg HCO3 26.6 (H) 22 - 26 mEq/L BASE EXCESS 2.5 (H) 0 - 2 mEq/L CTCO2(B)C 23.7 Vol% CTHB 12.9 g/dl % O2 HGB 89.7 % SO2,VENOUS OR CAP 99.8 (H) 68 - 77 % CARBOXYHEMOGLOBIN 9.6 % MetHB Arterial 0.6 % CBC, EDIF, PLATELET Result Value Ref Range WBC (WHITE BLOOD COUNT) 8.2 3.6 - 11.0 10*3/uL RBC 4.56 4.0 - 5.4 10*6/uL HEMOGLOBIN (HGB) 13.1 12.0 - 16.0 G/DL HEMATOCRIT (HCT) 38.9 36.0 - 48.0 % MEAN CELL VOLUME 85.4 80.0 - 100.0 FL Mean Cell HGB 28.7 26.0 - 35.0 PG MEAN CELL HGB CONCENTRATION 33.6 27.0 - 37.0 G/DL RBC DISTRIBUTION 14.1 11.5 - 14.5 % PLATELET COUNT 237 130 - 400 10*3/uL MEAN PLATELET VOLUME 9.8 7.4 - 11.0 FL DIFFERENTIAL TYPE AUTO DIFF % NEUTROPHILS 61.1 37.0 - 75.0 % LYMPHOCYTE 30.6 20.0 - 55.0 % MONOCYTE % 6.1 0.0 - 10.0 % EOSINOPHIL % 1.3 0.0 - 11.0 % BASOPHIL % 0.9 0.0 - 2.0 % Absolute Neutrophil Count 5.0 1 - 6 10*3/uL LYMPHOCYTES, ABSOLUTE 2.50 1.2 - 3.4 10*3/uL MONOCYTES, ABSOLUTE 0.5 0.0 - 0.7 10*3/uL ABSOLUTE EOSINOPHIL COUNT 0.10 0 - 0 10*3/uL ABSOLUTE BASOPHIL COUNT 0.1 0 - 0 10*3/uL KETONES (BLOOD) Result Value Ref Range BETA HYDROXYBUTYRATE 1.84 (H) 0.02 - 0.27 MMOL/L URINALYSIS, MACRO Result Value Ref Range COLOR, URINE YELLOW YELLOW APPEARANCE, URINE CLEAR CLEAR SPECIFIC GRAVITY, URINE 1.010 1.010 - 1.025 PH URINE 5.0 5.0 - 7.0 PROTEIN, URINE NEGATIVE NEGATIVE mg/dl GLUCOSE, URINE 500 (A) NEGATIVE mg/dl KETONES, URINE 40 (A) NEGATIVE mg/dl BILIRUBIN, URINE NEGATIVE NEGATIVE BLOOD, URINE DIPSTICK NEGATIVE NEGATIVE NITRITES, URINE NEGATIVE NEGATIVE UROBILINOGEN, URINE 0.2 0.2 - 1.0 E.U./dL LEUKOCYTE ESTERASE, URINE NEGATIVE NEGATIVE HCG QUALITATIVE, URINE Result Value Ref Range HCG, QUALITATIVE, URINE NEGATIVE NEGATIVE URINE MICROSCOPIC Result Value Ref Range WBC, URINE NEGATIVE NEGATIVE /HPF RBC, URINE NEGATIVE NEGATIVE /HPF Epithelial Cells UA 1 TO 5 /HPF Mucus NEGATIVE NEGATIVE BACTERIA, URINE NEGATIVE NEGATIVE CRYSTALS, URINE NONE NONE CASTS, URINE NONE NONE /LPF COMMENT, URINE CULTURE CRITERIA NOT MET, NO CULTURE PERFORMED. Radiographic Imaging No orders to display Moderate Sedation Procedure: No Procedures: Procedures ED Summary/MDM Patient IV established was given a fluid bolus. Her labs came back showing that she had very mild DKA. PH was normal bicarbonate was normal and she had ketones in her urine and beta hydroxybutyrate was positive. Patient's very mild DKA and I explained to her that should benefit from using insulin regular basis. She cannot prescribe her additional insulin. She doesn't need admission for hospital tonight. I told her return if she feels worse. She stable discharged in good condition. Clinical Impression: 1. Diabetic ketoacidosis without coma associated with type 1 diabetes mellitus No follow-ups on file. New Prescriptions No medications on file Discontinued Medications No medications on file An After Visit Summary was printed and given to the patient with above information. . . Lolis Lopes MD 08/11/20 3906 Lolis Lopes MD 08/11/20 0674 documented in this [facility]01-01-2021 Emergency department Note* Rojas Ortiz RN - 08/10/2020 7:19 PM EDT Discharge instructions given. Home ambulatory. Condition stable. * Rojas Ortiz RN - 08/10/2020 7:[address] Reyes at bedside ton discuss results and plan of care. Instructed to manage bs and take insulin regularly. Pt verbalized understanding. * Essence Reyes MD - 08/10/2020 5:01 PM EDT [facility] ED Attending Note: ED Site: [facility] EMERGENCY DEPARTMENT NAME: Mya Rubio 25 y.o. CSN: [id number] PCP: Maria Raygoza CNP History: Chief Complaint: Palpable Pelvic Mass HPI: The history was obtained from the patient. Mya is a 25 y.o. female who presents with a chief complaint of Palpable Pelvic Mass. HPI This is a 25-year-old female, presenting for evaluation of abdominal wall mass. Patient states thatabout 3 weeks ago, she had her shirt up, and her sister noted that her abdomen did not look normal.The patient is unsure how long this has been going on for. She states that she noted that there is a soft mass just below her umbilicus, extending bilaterally. The patient does have a history of diabetes, is post to be taking insulin, but has not been doing so. She states that she simply does not enjoy doing the shots. The patient states it is not painful, however, it does cause some discomfort from time to time, with some pressure. She denies any nausea, vomiting, dizziness, is constipated, nasally. She has no shortness of breathor chest pain. PMHx: Past Medical History: Diagnosis Date DM type 1 (diabetes mellitus, type 1) ([facility]) PMSx: History reviewed. No pertinent surgical history. FAM. Hx: History reviewed. No pertinent family history. SOC. Hx: Social History Socioeconomic History Marital status: Single Spouse name: Not on file Number of children: Not on file Years of education: Not on file Highest education level: Not on file Occupational History Not on file Tobacco Use Smoking status: Never Smoker Smokeless tobacco: Never Used Substance and Sexual Activity Alcohol use: Never Drug use: Not on file Sexual activity: Not on file Other Topics Concern Not on file Social History Narrative Not on file Social Determinants of Health Financial Resource Strain: Difficulty of Paying Living Expenses: Food Insecurity: Worried About Running Out of Food in the Last Year: Ran Out of Food in the Last Year: Transportation Needs: Lack of Transportation (Medical): Lack of Transportation (Non-Medical): Physical Activity: Days of Exercise per Week: Minutes of Exercise per Session: Stress: Feeling of Stress : Social Connections: Frequency of Communication with Friends and Family: Frequency of Social Gatherings with Friends and Family: Attends Rastafari Services: Active Member of Clubs or Organizations: Attends Club or Organization Meetings: Marital Status: MEDs: No current outpatient medications on file prior to encounter. ALL: No Known Allergies ROS: Review of Systems Constitutional: Negative for activity change, appetite change and fever. HENT: Negative for congestion and rhinorrhea. Eyes: Negative for photophobia, pain, redness and visual disturbance. Respiratory: Negative for apnea, chest tightness, shortness of breath and wheezing. Cardiovascular: Negative for chest pain and palpitations. Gastrointestinal: Negative for abdominal pain, constipation, diarrhea, nausea and vomiting. Genitourinary: Negative for difficulty urinating and hematuria. Musculoskeletal: Negative for arthralgias and myalgias. Skin: Negative for color change and rash. Allergic/Immunologic: Negative for environmental allergies and food allergies. Neurological: Negative for dizziness, syncope, light-headedness, numbness and headaches. Psychiatric/Behavioral: Negative for behavioral problems and confusion. Positives and pertinent negatives as per HPI. All other systems were reviewed and are negative. Physical Exam: Patient Vitals for the past 24 hrs: BP Temp Temp src Pulse Resp SpO2 Height Weight 08/10/20 1902 116/84 75 16 100 % 08/10/20 1730 132/78 98 15 98 % 08/10/20 1715 122/77 90 15 99 % 08/10/20 1700 133/86 92 16 97 % 08/10/20 1645 129/83 93 15 97 % 08/10/20 1639 (!) 134/104 98.3 F (36.8 C) Oral 94 16 98 % 5' 2 48.5 kg (107 lb) Physical Exam Constitutional: General: She is not in acute distress. Appearance: She is not diaphoretic. HENT: Head: Normocephalic and atraumatic. Right Ear: External ear normal. Left Ear: External ear normal. Eyes: General: No scleral icterus. Neck: Vascular: No JVD. Trachea: No tracheal deviation. Cardiovascular: Rate and Rhythm: Normal rate and regular rhythm. Pulses: Normal pulses. Heart sounds: Normal heart sounds. No murmur heard. No friction rub. No gallop. Pulmonary: Effort: Pulmonary effort is normal. No respiratory distress. Breath sounds: Normal breath sounds. No wheezing or rales. Chest: Chest wall: No tenderness. Abdominal: General: Abdomen is flat. Bowel sounds are normal. There is no distension. Tenderness: There is no abdominal tenderness. Musculoskeletal: General: No tenderness, deformity or signs of injury. Skin: General: Skin is warm and dry. Neurological: General: No focal deficit present. Mental Status: She is alert and oriented to person, place, and time. Psychiatric: Mood and Affect: Mood normal. Behavior: Behavior normal. Laboratory & Radiological Imaging (if done): Labs Reviewed POC CBC AND DIFFERENTIAL - Abnormal; Notable for the following components: Result Value RBC 5.66 (*) Hematocrit 48.0 (*) All other components within normal limits POC GLUCOSE - Abnormal; Notable for the following components: Glucose 305 (*) All other components within normal limits POC LIVER PANEL PLUS RALS - Abnormal; Notable for the following components: Total Protein 8.3 (*) All other components within normal limits POC VBG (EPOC) WITH FULL PANEL - RALS - Abnormal; Notable for the following components: pO2, Brennan 19 (*) Base Excess, Brennan -3.1 (*) HCO3, Brennan 22.6 (*) O2 Sat, Brennan 25.3 (*) Hemoglobin, Calculated 16.6 (*) Hematocrit 49 (*) Glucose 302 (*) All other components within normal limits Narrative: The eGFR should be used for monitoring renal function only and not for medication dosing. Specimens collected in a lithium heparin tube may show erroneous pO2, pCO2 and related calculationsdue to aerobic handling. If the most accurate venous blood gas results are needed, use a heparinized blood gas syringe. POC URINALYSIS DIPSTICK,AUTO - RALS - Abnormal; Notable for the following components: Spec Grav, UA >=1.030 (*) Glucose, UA 500 (*) Ketones, UA >=160 (*) All other components within normal limits POC GLUCOSE - RALS - Abnormal; Notable for the following components: Glucose 305 (*) All other components within normal limits POC , URINE - RALS - Normal Narrative: Dilute urine specimens, as indicated by a low specific gravity (<1.010) may not contain senior account representative levels of hCG. If is still suspected, a serum test or repeat urine test using a first morning urine specimen should be considered. POC VBG (EPOC) WITH FULL PANEL POC LIVER PANEL PLUS POC URINALYSIS DIPSTICK,AUTO POC , URINE CT Abdomen Pelvis With IV Contrast Only Final Result Circumferential urinary bladder thickening, which may represent cystitis. Clinical correlation advised. Otherwise, no acute abnormalities in the abdomen or pelvis. No abdominal wall mass, as clinically questioned. Workstation ID: [id number] Procedures: Procedures ED Course / Medical Decision Making: This is a 25-year-old female, presenting today for evaluation of what she thinks is a mass superficially in her abdomen just below the umbilicus. She does not have any nausea, vomiting, diarrhea, or other abdominal symptoms. She does not complain of any dysuria, or flank pain. CBC shows no acute leukocytosis, and urine shows a high specific gravity, with 500 glucose, greaterthan 160 ketones. I am concerned about the patient's high glucose of 302, however, the patient states that she is not having any symptoms. She states that she routinely runs higher than 302. ABG doesnot show any acidosis, though her bicarbonate is slightly low. CT of the abdomen pelvis does not show anything related to the wall mass. There is some circumferential urinary bladder thickening, however, urinalysis is negative for white blood cells or nitrites. Patient is not having any urinary symptoms. We discussed the results of the work up in the emergency department. I am most concerned about her blood sugars. Upon reevaluation, the patient states that the fluid bolus I gave her is making her feel better, and she is not very concerned about her blood sugar at all. I did talk to her at length about the need to use insulin, she is a diabetic,. The patient states that she will follow up with her PCP for this. Update: 7:11 PM after liter of fluid, patient's blood glucose is 305. DARCIE Xie and I speak with the patient at bedside, and further give her counseling on use of insulin. The patient states that she simply is noncompliant because she sometimes does not feel the need to. We expressed to the patient'sthe gravity of the situation, and how her pH is on the low end of normal, and her anion gap is on the high end of normal. We are concerned about the possibility of DKA, and we explained to her as diabetic coma . Patient states that she understands this, she understands the gravity of the situation, and she understands that she does not take care of herself well. She is able to tell us that if she does not follow her insulin regimen dosing, that could kill me. I do once again offer her observation admission to any of the nearby hospitals, should she need help getting this under control, however, she states that she knows exactly what to do at home, she just usually chooses not to, but states that she understands the gravity of the situation this time. I provided verbal discharge instructions regarding the emergency department diagnosis. Prognosis, expected clinical course, and return precautions were reviewed. I answered her questions and re-iterated the importance of returning to the emergency department immediately for any new or worsening symptoms. The patient expressed understanding of the instructions and reported that all of her questions had been answered. Clinical Impression: 1. Abdominal pressure 2. Hyperglycemia Disposition: discharged to home Essence Reyes M.D. Attending Physician [facility] 08/10/2020 Portions of this note may have been dictated utilizing voice recognition software. Unfortunately this leads to occasional typographical errors. If questions arise please do not hesitate to contact elvia for clarification. (Please note that portions of this note have been completed with a voice recognition software. Efforts were made to correct any errors, but occasionally words are mis-transcribed.) Essence Reyes MD 08/10/201910 * Tamia Urrutia CNP - 08/10/2020 4:43 PM EDT Pt c/o pelvic mass to lower abdomen x1 month-- she denies pain, n/v/d or fever. Pt relates having DM I; however, she is not currently taking insulin because she does not like injecting herself. Pt relates not having insulin x1 month. documented in this [id number] Emergency department Note* Rojas Ortiz RN - 09/16/2020 9:08 PM EDT Discharged with instructions and rx x1 and referral to pmd. Home ambulatory. Condition stable. * Tano Wild MD - 09/16/2020 8:37 PM EDT ED PROVIDER NOTE [facility] EMERGENCY DEPARTMENT NAME: Mya Rubio AGE: 25 y.o. : 1995 VISIT DATE: 09/16/2020 CSN: [id number] PCP: Maria Raygoza CNP Chief Complaint Patient presents with Vaginal Discharge Chief complaint vaginal discharge History of present illness 45-year-old female who is here with trichomoniasis exposure. To be checked and treated she is here with vaginal discharge. She states her partner had and she is here for assessment. Discharge. She denies abdominal pain fever chills nausea vomiting or hot Joints. Denies chest pain abdominal Past Medical History: Diagnosis Date Depression DM type 1 (diabetes mellitus, type 1) ([facility]) Hypertension Past Surgical History: Procedure Laterality Date FOOT FRACTURE SURGERY History reviewed. No pertinent family history. Social History Socioeconomic History Marital status: Single Spouse name: Not on file Number of children: Not on file Years of education: Not on file Highest education level: Not on file Occupational History Not on file Tobacco Use Smoking status: Current Every Day Smoker Packs/day: 2.00 Types: Cigarettes Smokeless tobacco: Never Used Substance and Sexual Activity Alcohol use: Never Drug use: Not Currently Sexual activity: Not on file Other Topics Concern Not on file Social History Narrative Not on file Social Determinants of Health Financial Resource Strain: Difficulty of Paying Living Expenses: Food Insecurity: Worried About Running Out of Food in the Last Year: Ran Out of Food in the Last Year: Transportation Needs: Lack of Transportation (Medical): Lack of Transportation (Non-Medical): Physical Activity: Days of Exercise per Week: Minutes of Exercise per Session: Stress: Feeling of Stress : Social Connections: Frequency of Communication with Friends and Family: Frequency of Social Gatherings with Friends and Family: Attends Rastafari Services: Active Member of Clubs or Organizations: Attends Club or Organization Meetings: Marital Status: No current outpatient medications on file prior to encounter. No Known Allergies Review of Systems All other systems reviewed and are negative. Patient Vitals for the past 24 hrs: BP Temp Pulse Resp Height Weight 09/16/202028 138/84 100.1 F (37.8 C) (!) 110 16 5' 2 48.5 kg (107 lb) Physical Exam Vitals and nursing note reviewed. Constitutional: General: She is in acute distress. Appearance: She is normal weight. HENT: Head: Normocephalic. Nose: Nose normal. Mouth/Throat: Mouth: Mucous membranes are moist. Skin: General: Skin is warm. Neurological: Mental Status: She is alert. Laboratory & Radiographic Imaging (if done): No results found for this visit on 09/16/20. No orders to display Procedures MDM Number of Diagnoses or Management Options Concern about STD in female without diagnosis Diagnosis management comments: Here given a shot of Rocephin urine culture was collected for gonorrhea chlamydia and urinalysis and was discharged home Flagyl Amount and/or Complexity of Data Reviewed Clinical lab tests: ordered and reviewed Risk of Complications, Morbidity, and/or Mortality Presenting problems: low Diagnostic procedures: minimal Management options: minimal Patient Progress Patient progress: stable . Clinical Impression: 1. Concern about STD in female without diagnosis ED Disposition ED Disposition Condition Comment Discharge Stable Mya Rubio discharged to home/self care in stable condition. Follow-up Information 1. Maria Raygoza CNP. Specialty: Nurse Practitioner [address] [place] [address] Contact information for after-discharge care Follow-up information has not been specified. New Prescriptions metroNIDAZOLE (FLAGYL) 500 MG tablet Take 1 (one) tablet (500 mg total) by mouth 3 (three) times a day with meals for 7 days . Tano Wild MD 09/16/202039 * Rojas Ortiz RN - 09/16/2020 8:25 PM EDT Pt states thather girlfriendtested positive for trichomonas and wants to be tested. States having some whitish discharge. Otherwise no symptoms. [facility] Diagnosis Abdominal pressure- Primary Abdominal pain, unspecified site Hyperglycemia Other abnormal glucose documented in this encounter [facility] note* Diagnosis Diabetic ketoacidosis without coma associated with type 1 diabetes mellitus- Primary documented in this encounter [facility] note* Diagnosis Concern about STD in female without diagnosis- Primary [facility]* Diagnosis Closed displaced fracture of base of third metacarpal bone of right hand, initial encounter- Primary Closed displaced fracture of base of fourth metacarpal bone of right hand, initial encounter documented in this encounter [facility] note* Diagnosis Closed displaced fracture of base of fourth metacarpal bone of right hand with routine healing, subsequent encounter- Primary [facility] Diagnosis Closed displaced fracture of base of fourth metacarpal bone of right hand with routine healing, subsequent encounter- Primary [facility] Diagnosis Closed displaced fracture of base of fourth metacarpal bone of right hand with routine healing, subsequent encounter [facility]* Diagnosis Pre-employment health screening examination Health examination of defined subpopulation documented in this encounter [facility] note* Diagnosis Poorly controlled type 1 diabetes mellitus (HCC)- Primary Type I (juvenile type) diabetes mellitus without mention of complication, not stated as uncontrolled documented in this encounter [facility] note* Diagnosis Type 1 diabetes mellitus with hyperglycemia (HCC) Type I (juvenile type) diabetes mellitus without mention of complication, not stated as uncontrolled Anxiety with depression documented in this encounter [facility] note* Diagnosis Type I diabetes mellitus with manifestations (HCC)- Primary Type I (juvenile type) diabetes mellitus with other specified manifestations, not stated as uncontrolled documented in this encounter [facility] note* Diagnosis Type I diabetes mellitus with manifestations (HCC)- Primary Type I (juvenile type) diabetes mellitus with other specified manifestations, not stated as uncontrolled documented in this encounter [facility] Discharge instructions* Attachments The following attachments cannot be sent through Care Everywhere. * Abdominal Pain (Venezuelan) * Diabetes: Blood Sugar Emergencies (Venezuelan) * Diabetes: Home Blood Sugar Test ([place]enezuelan) * Hyperglycemia: General Info ([place]) [facility]* Attachments The following attachments cannot be sent through Care Everywhere. * Diabetes: Discharge with Insulin ([facility]) ([place]) [facility] Attachments The following attachments cannot be sent through Care Everywhere. * STI ([place]) documented in this [facility] for [facility] Narrative* Auth/Cert Specialty Diagnoses / Procedures Referred By Shanae lynn Referred To Contact Diagnoses Closed displaced fracture of base of third metacarpal bone of right hand, initial encounter Closed displaced fracture of base of fourth metacarpal bone of right hand, initial encounter Closed displaced fracture of base of third metacarpal bone of right hand, initial encounter [A27.394A] Closed displaced fracture of base of fourth metacarpal bone of right hand, initial encounter [I97.355K] Procedures SD CLOSED RX METACARPAL FX,AYANNA Duran, Lolis Castellanos MD [address] [place] [address] Referral ID Status Reason Start Date Expiration Date Visits Re quested Visits Authorized [id number] 2021 1 1 [facility] Summary Purpose Family History No Family History Records FoundNo Family History Records FoundNo Family History Records FoundNo Family History Records FoundNo Family History Records FoundNo Family History Records FoundNo Family History Records FoundNo Family History Records FoundNo Family History Records FoundNo Family History Records FoundNo Family History Records Found Advance Directives No Advanced Directives Records FoundDocuments on File Type Date Recorded Patient Mess Attendant Expl anation Advance Directives and Livin g Will 08/10/2020 4:38 PM Documents on File Type Date Recorded Patient Mess Attendant Expl anation Advance Directives and Livin g Will 09/16/2020 4:38 PM Documents on File Type Date Recorded Patient Mess Attendant Expl anation Advance Directives and Livin g Will 04/20/2021 7:14 AM Documents on File Type Date Recorded Patient Mess Attendant Expl anation Advance Directives and Livin g Will 05/22/2021 6:51 AM Documents on File Type Date Recorded Patient Mess Attendant Expl anation Advance Directives and Livin g Will 05/22/2021 6:51 AM Reason for Referral Specialty Diagnoses / Procedures Referred By Shanae lynn Referred To Contact Rehabilitation Diagnoses Closed displaced fracture of base of fourth metacarpal bone of right hand with routine healing, subsequent encounter Lolis Duran MD [address] [place] [address] [facility] [address] [place] [address] Referral ID Status Reason Start Date Expiration Date V isits Requested Visits Authorized [id number] Authorized 06/26/2021 06/26/2022 1 1 Additional Source Comments INFORMATION SOURCE (unrecogn ized section and content) DATE CREATED AUTHOR AUTHOR'S ORGANIZ ATION 06/04/2020 [facility] DATE CREATED AUTHOR AUTHOR'S ORGANIZ ATION 03/01/2021 [facility] DATE CREATED AUTHOR AUTHOR'S ORGANIZ ATION 05/18/2021 [facility] DATE CREATED AUTHOR AUTHOR'S ORGANIZ ATION 07/28/2021 [facility] DATE CREATED AUTHOR AUTHOR'S ORGANIZ ATION 08/11/2021 [facility] DATE CREATED AUTHOR AUTHOR'S ORGANIZ ATION 01/11/2022 [facility] DATE CREATED AUTHOR AUTHOR'S ORGANIZ ATION 03/11/2022 [facility] DATE CREATED AUTHOR AUTHOR'S ORGANIZ ATION 03/22/2022 [facility] DATE CREATED AUTHOR AUTHOR'S ORGANIZ ATION 04/13/[address] [facility] DATE CREATED AUTHOR AUTHOR'S ORGANIZ ATION 04/23/2023 [facility] Reason for Visit (unrecogniz ed section and content) Reason Comments High Blood Sugar Check BS at home and given reading of HI, fingerstick in triage= 544. States fruity breath, denies any other symptoms. Has not taken isnsulin since last month. Reason Comments Vaginal Discharge Reason Comments Injury Reason Comments Follow-up Wound Check Cast Removal Reason Comments Fracture Follow-up Specialty Diagnoses / Procedures Referred By Shanae lynn Referred To Contact Rehabilitation Diagnoses Closed displaced fracture of base of fourth metacarpal bone of right hand with routine healing, subsequent encounter Lolis Duran MD [address] [place] [address] [facility] [address] [place] [id number] Referral ID Status Reason Start Date Expiration Date V isits Requested Visits Authorized [id number] Authorized 06/26/2021 06/26/2022 18 5 Reason Comments Refill Request Reason Comments Orders Medtronic System Reason Onset Date Comments Results 03/04/2022 Reason Comments Results Reason Comments bennett CGM supplies. Reason Comments Establish Care DM Reason Comments Medtronic/MONI Notes/Labs Reason Comments Medtronic CGM supplies Reason Comments Opened In Error error Reason Comments Medtronic 770 G System Initiation Settin gs Reason Onset Date Comments Refill Request 05/09/2022 Reason Comments Appointment Reason Comments Diabetes Self Management Education Reason Comments fax PSR Message for Med[employer]onic Please see doc umentation Reason Comments Question See note Reason Comments Insulin Dependent Diabetes Mellitus Reason Comments Patient Update Scheduled Active and Recently Administ ered Medications (unrecognized section and content) PRN Medication Order 08/08/2020 08/09/2020 08/10/2020 iopamidoL (ISOVUE-370) 76 % injection 75 mL (COMPLETED) 75 mL, Intravenous, Once in imaging, contrast, Per antique jewelry repairer (Radiology), Starting on 08/10/20 at 1700, For 1 dose 1758 (Contrast Admin istered - Provider: Santa Olsen TECHNOLOGIST) sodium chloride (PF) (NS) 0.9 % contrast line flush 10 mL (COMPLETED) 10 mL, Intravenous, Once in imaging, contrast, Per antique jewelry repairer (Radiology) for line patency check prior to contrast administration, Starting on 08/10/20 at 1700, For 1 dose 1800 (Given - Provid er: TECHNOLOGIST Richie) sodium chloride (PF) (NS) 0.9 % contrast line flush 80 mL (COMPLETED) 80 mL, Intravenous, Once in imaging, contrast, Per antique jewelry repairer (Radiology), Starting on 08/10/20 at 1700, For 1 dose, 30 mL BEFORE contrast administration 50 mL AFTER contrast administration 1800 (Given - Provid er: TECHNOLOGIST iRchie) sodium chloride (PF) (NS) flush 5 mL(Linked Group 1) 5 mL, Intravenous, As needed, line care, Starting on 08/10/20 at 1642 sodium chloride 0.9% (NS)(Linked Group 1) 0-150 mL/hr, Intravenous, As needed, To flush line after IV infusions when no maintenance IV ordered or a compatibility issue. Infuse 20ml at the same rate as the secondary infusion, Starting on 08/10/20 at 1642, Run as Primary IV. NOT intended for KVO. Linked Groups Order Group 1: Insert peripheral IV (COMPLETED) CM, Once, On 08/10/20 at 1643, For 1 occurrence And Saline lock IV (CANCELED) CM, Once, On 08/10/20 at 1643, For 1 occurrence And sodium chloride (PF) (NS) flush 5 mLJump to med 5 mL, Intravenous, As needed, line care, Starting on 08/10/20 at 1642 And sodium chloride 0.9% (NS)Jump to med 0-150 mL/hr, Intravenous, As needed, To flush line after IV infusions when no maintenance IV ordered or a compatibility issue. Infuse 20ml at the same rate as the secondary infusion, Starting on 08/10/20 at 1642
Run as Primary IV. NOT intended for KVO.
Scheduled Medication Order 08/10/2020 08/11/2020 08/12/2020 insulin regular (HumuLIN R;NovoLIN R) injection 10 Units (COMPLETED) 10 Units, Intravenous, ONCE, 1 dose, On Tue08/11/20 at 2145 2217 (Given - Provider: Felicitas Bourne RN) sodium chloride 0.9% IV solution 500 mL (COMPLETED) 500 mL, Intravenous, ONCE, 1 dose, On Tue08/11/20 at 2115 2122 ($$New Bag$$ - Provider : Felicitas Bourne RN)2221 (Stopped - Provider: Felicitas Bourne RN) Scheduled Medication Order 09/14/2020 09/15/2020 09/16/2020 azithromycin (ZITHROMAX) tablet 1,000 mg (COMPLETED) 1,000 mg, Oral, Once, On Tue09/16/20 at 2040, For 1 dose, Indication: STD Prophylaxis 2053 (Given - Provid er: Rojas Angel, RN) cefTRIAXone IM (ROCEPHIN) injection 500 mg (COMPLETED) 500 mg, Intramuscular, Once, On Tue09/16/20 at 2049, For 1 dose, Nursing to reconstitute each vial with 1 mL sterile water injection. Final concentration = 350 mg/mL. FOR IM USE ONLY., Indication: STD Prophylaxis 2052 (Given - Provid er: Rojas Ortiz RN) <item><item><item><item><item><item> Privacy Markings (unrecogniz ed section and content) Section Author: Ching Edwards PROHIBITION ON REDISCLOSURE OF CONFIDENTIAL INFORMATION This notice accompanies a disclosure of information concerning a client made to you with the consent of such client. Section Author: Ching Edwards PROHIBITION ON REDISCLOSURE OF CONFIDENTIAL INFORMATION This notice accompanies a disclosure of information concerning a client made to you with the consent of such client. Section Author: Ching Edwards PROHIBITION ON REDISCLOSURE OF CONFIDENTIAL INFORMATION This notice accompanies a disclosure of information concerning a client made to you with the consent of such client. Section Author: Ching Edwards PROHIBITION ON REDISCLOSURE OF CONFIDENTIAL INFORMATION This notice accompanies a disclosure of information concerning a client made to you with the consent of such client. Section Author: Ching Edwards PROHIBITION ON REDISCLOSURE OF CONFIDENTIAL INFORMATION This notice accompanies a disclosure of information concerning a client made to you with the consent of such client. Section Author: Ching Edwards PROHIBITION ON REDISCLOSURE OF CONFIDENTIAL INFORMATION This notice accompanies a disclosure of information concerning a client made to you with the consent of such client. Care Teams (unrecognized sec tion and content) Incident Response Specialist Relationship Specialty Start Date End Date VanialogMaria cisse CNP [address] [place] [address] PCP - General Nurse Practitioner 08/10/20 Incident Response Specialist Relationship Specialty Start Date End Date PodlogMaria cisse CNP [facility] [place] [address] PCP - General Nurse Practitioner 08/10/20 Incident Response Specialist Relationship Specialty Start Date End Date Maria Raygoza CNP [address] [facility] [place] [address] PCP - General Nurse Practitioner 08/10/20 Incident Response Specialist Relationship Specialty Start Date End Date Jeison Min MD [address] [place] [address] PCP - General Family Practice 08/12/20 [facility] [address] [place] [address] Pharmacist Pharmacy 01/25/20 Incident Response Specialist Relationship Specialty Start Date End Date Jeison Min MD [address] [place] [address] PCP - General Family Practice 08/12/20 MarvFreda, [facility] [address] [place] [address] Pharmacist Pharmacy 01/25/20 Incident Response Specialist Relationship Specialty Start Date End Date Jeison Min MD [address] [place] [address] PCP - General Family Medicine 08/12/20 Freda Young, [facility] [address] [place] [address] Pharmacist Pharmacy 01/25/20 Incident Response Specialist Relationship Specialty Start Date End Date Jeison Min MD [address] [place] [address] PCP - General Family Medicine 08/12/20 Freda Young, [facility] [address] [place] [address] Pharmacist Pharmacy 01/25/20 Incident Response Specialist Relationship Specialty Start Date End Date Jeison Min MD [address] [place] [address] PCP - General Family Medicine 08/12/20 [facility] [address] [place] [address] Pharmacist Pharmacy 01/25/20 Incident Response Specialist Relationship Specialty Start Date End Date Maria Raygoza CNP [address] [place] [address] PCP - General Nurse Practitioner - Family 08/11/20 Incident Response Specialist Relationship Specialty Start Date End Date Jeison Min MD [address] [place] [address] PCP - General Family Medicine 08/12/20 [facility] [address] [place] [address] Pharmacist Pharmacy 01/25/20 Incident Response Specialist Relationship Specialty Start Date End Date Jeison Min MD [address] [place] [address] PCP - General Family Medicine 08/12/20 [facility] [address] [place] [address] Pharmacist Pharmacy 01/25/20 Incident Response Specialist Relationship Specialty Start Date End Date Jeison Min MD [address] [place] [address] PCP - General Family Medicine 08/12/20 [facility] [address] [place] [address] Pharmacist Pharmacy 01/25/20 Incident Response Specialist Relationship Specialty Start Date End Date Jeison Min MD [address] [place] [address] PCP - General Family Medicine 08/12/20 Freda Young, [facility] [address] [place] [address] Pharmacist Pharmacy 01/25/20 Incident Response Specialist Relationship Specialty Start Date End Date Jeison Min MD [address] [place] [address] PCP - General Family Medicine 08/12/20 MarvFreda, [facility] [address] [place] [address] Pharmacist Pharmacy 01/25/20 Incident Response Specialist Relationship Specialty Start Date End Date Jeison Min MD [address] [place] [address] PCP - General Family Medicine 08/12/20 [facility] [address] [place] [address] Pharmacist Pharmacy 01/25/20 Incident Response Specialist Relationship Specialty Start Date End Date Jeison Min MD [address] [place] [address] PCP - General Family Medicine 08/12/20 MarvFreda, [facility] [address] [place] [address] Pharmacist Pharmacy 01/25/20 Incident Response Specialist Relationship Specialty Start Date End Date Jeison Min MD [address] [place] [address] PCP - General Family Medicine 08/12/20 MarvFreda, [facility] [address] [place] [address] Pharmacist Pharmacy 01/25/20 Incident Response Specialist Relationship Specialty Start Date End Date Jeison Min MD [address] [place] [address] PCP - General Family Medicine 08/12/20 Freda Young [facility] Pharmacist Pharmacy 01/25/20 Source Comments (unrecognize d section and content) In the event this informatio n is protected by the Federal Confidentiality of Alcohol and Drug Abuse Patient Records regulations: The Federal rules restrict any use of the information to criminally investigate or prosecute any alcohol or drug abuse patient.[facility]onIn the event this information is protected by the Federal Confidentiality of Alcohol and Drug Abuse Patient Records regulations: The Federal rules restrict any use of the information to criminally investigate or prosecute any alcohol or drug abuse patient.[facility]onIn the event this information is protected by the Federal Confidentiality of Alcohol and Drug Abuse Patient Records regulations: The Federal rules restrict any use of the information to criminally investigate or prosecute any alcohol or drug abuse patient.[facility]onIn the event this information is protected by the Federal Confidentiality of Alcohol and Drug Abuse Patient Records regulations: The Federal rules restrict any use of the information to criminally investigate or prosecute any alcohol or drug abuse patient.[facility]onIn the event this information is protected by the Federal Confidentiality of Alcohol and Drug Abuse Patient Records regulations: The Federal rules restrict any use of the information to criminally investigate or prosecute any alcohol or drug abuse patient.[facility]onIn the event this information is protected by the Federal Confidentiality of Alcohol and Drug Abuse Patient Records regulations: The Federal rules restrict any use of the information to criminally investigate or prosecute any alcohol or drug abuse patient.[facility]onIn the event this information is protected by the Federal Confidentiality of Alcohol and Drug Abuse Patient Records regulations: The Federal rules restrict any use of the information to criminally investigate or prosecute any alcohol or drug abuse patient.[facility]onIn the event this information is protected by the Federal Confidentiality of Alcohol and Drug Abuse Patient Records regulations: The Federal rules restrict any use of the information to criminally investigate or prosecute any alcohol or drug abuse patient.[facility]onIn the event this information is protected by the Federal Confidentiality of Alcohol and Drug Abuse Patient Records regulations: The Federal rules restrict any use of the information to criminally investigate or prosecute any alcohol or drug abuse patient.[facility]onIn the event this information is protected by the Federal Confidentiality of Alcohol and Drug Abuse Patient Records regulations: The Federal rules restrict any use of the information to criminally investigate or prosecute any alcohol or drug abuse patient.[facility]onIn the event this information is protected by the Federal Confidentiality of Alcohol and Drug Abuse Patient Records regulations: The Federal rules restrict any use of the information to criminally investigate or prosecute any alcohol or drug abuse patient.[facility]onIn the event this information is protected by the Federal Confidentiality of Alcohol and Drug Abuse Patient Records regulations: The Federal rules restrict any use of the information to criminally investigate or prosecute any alcohol or drug abuse patient.[facility]onIn the event this information is protected by the Federal Confidentiality of Alcohol and Drug Abuse Patient Records regulations: The Federal rules restrict any use of the information to criminally investigate or prosecute any alcohol or drug abuse patient.[facility]onIn the event this information is protected by the Federal Confidentiality of Alcohol and Drug Abuse Patient Records regulations: The Federal rules restrict any use of the information to criminally investigate or prosecute any alcohol or drug abuse patient.[facility]onIn the event this information is protected by the Federal Confidentiality of Alcohol and Drug Abuse Patient Records regulations: The Federal rules restrict any use of the information to criminally investigate or prosecute any alcohol or drug abuse patient.[facility]onIn the event this information is protected by the Federal Confidentiality of Alcohol and Drug Abuse Patient Records regulations: The Federal rules restrict any use of the information to criminally investigate or prosecute any alcohol or drug abuse patient.[facility]onIn the event this information is protected by the Federal Confidentiality of Alcohol and Drug Abuse Patient Records regulations: The Federal rules restrict any use of the information to criminally investigate or prosecute any alcohol or drug abuse patient.[facility]onIn the event this information is protected by the Federal Confidentiality of Alcohol and Drug Abuse Patient Records regulations: The Federal rules restrict any use of the information to criminally investigate or prosecute any alcohol or drug abuse patient.[facility]onIn the event this information is protected by the Federal Confidentiality of Alcohol and Drug Abuse Patient Records regulations: The Federal rules restrict any use of the information to criminally investigate or prosecute any alcohol or drug abuse patient.[facility]onIn the event this information is protected by the Federal Confidentiality of Alcohol and Drug Abuse Patient Records regulations: The Federal rules restrict any use of the information to criminally investigate or prosecute any alcohol or drug abuse patient.[facility] the event this information is protected by the Federal Confidentiality of Alcohol and Drug Abuse Patient Records regulations: The Federal rules restrict any use of the information to criminally investigate or prosecute any alcohol or drug abuse patient.[facility] the event this information is protected by the Federal Confidentiality of Alcohol and Drug Abuse Patient Records regulations: The Federal rules restrict any use of the information to criminally investigate or prosecute any alcohol or drug abuse patient.[facility]on[facility] the event this information is protected by the Federal Confidentiality of Alcohol and Drug Abuse Patient Records regulations: The Federal rules restrict any use of the information to criminally investigate or prosecute any alcohol or drug abuse patient.[facility] FOR RECORDS PERTAINING TO PATIENTS WHO ARE OR HAVE BEEN ENROLLED IN A CHEMICAL DEPENDENCY/SUBSTANCEABUSE PROGRAM, SOME INFORMATION MAY BE OMITTED. This clinical summary was aggregated from multiple sources. Caution should be exercised in using it in the provision of clinical care. This summary normalizes information from multiple sources, and as a consequence, information in this document may materially change the coding, format and clinical context of patient data. In addition, data may be omitted in some cases. CLINICAL DECISIONS SHOULD BE BASED ON THE PRIMARY CLINICAL RECORDS. [facility]. provides no warranty or guarantee of the accuracy or completeness of information in this document.
== END | disposition home or self-care (01) ==
LOC: PSN 08:12
PROVIDERS: PCP Nurse Practitioner Primary Care; Referring Provider Obstetrics & Gynecology; Visit Provider Obstetrics & Gynecology
DX: E10.9 Type 1 diabetes mellitus without complications (principal); I10 Essential (primary) hypertension
CPT/HCPCS: 93005

== ENCOUNTER → 2023-08-08 | Outpatient (CLI) | payer MEDICAID, SELFPAY ==
--- NOTE | 2023-08-08 08:06 | US_ITS ---
STUDY: OBSTETRICAL ULTRASOUND - BIOPHYSICAL PROFILE REASON FOR EXAM: Female, 28 years old well being LMP: Unknown. PRIOR ULTRASOUND: None. TECHNIQUE: Transabdominal TECHNICAL QUALITY: Adequate. FINDINGS: There is a single intrauterine fetus. The fetus is in a cephalic presentation. There is demonstrated cardiac activity with a heart rate of 140 bpm. There is a normal amniotic fluid volume. The largest amniotic fluid pocket measures 5.6 cm. The amniotic fluid index (PALAK) is 14.4 cm. The placenta is anterior in location and is not low lying. There are Grade 1 placental changes. BIOPHYSICAL PROFILE: Breathing Movements (FBM): 2 Gross Body Movements (GBM): 2 Tone (FT): 2 Amniotic Fluid Volume (AFV): 2 TOTAL SCORE: / US/Biophysical Prof W/O Non Stres IMPRESSION: Normal biophysical profile of 10/26. Electronically Signed: Mahesh Winston MD at 9:40 EDT ,
== END | disposition home or self-care (01) ==
LOC: OPUS 08:06
PROVIDERS: PCP Nurse Practitioner Primary Care; Referring Provider Obstetrics & Gynecology; Visit Provider Obstetrics & Gynecology
DX: O43.109 Malformation of placenta, unspecified, unspecified trimester (principal); O16.9 Unspecified maternal hypertension, unspecified trimester; O24.919 Unspecified diabetes mellitus in pregnancy, unspecified trimester; Z3A.00 Weeks of gestation of pregnancy not specified
CPT/HCPCS: 76819

== ENCOUNTER → 2023-08-16 | Outpatient (CLI) | payer MEDICAID, SELFPAY ==
--- NOTE | 2023-08-16 14:19 | US_ITS ---
HISTORY: well being. TECHNIQUE: Transabdominal pelvic ultrasound was performed. 35 images. COMPARISON: 08/08/2023. FINDINGS: INTRAUTERINE GESTATION(s): Single. PRESENTATION: Cephalic. PLACENTA: Anterior, grade 3. No placenta previa. HEART MOTION: 152 bpm. AMNIOTIC FLUID INDEX (PALAK): 14.9 cm. Largest fluid pocket 5 cm cm. BIOPHYSICAL PROFILE (BPP): 10/26 -- Breathin/2. -- Movement: 2/2. -- Tone: 2/2. --PALAK: 2/2. US/Biophysical Prof W/O Non Stres IMPRESSION: Single living intrauterine with a normal biophysical profile score. Electronically Signed: Fernanda Welch MD at 15:49 EDT ,
== END | disposition home or self-care (01) ==
LOC: OPUS 14:17
PROVIDERS: PCP Nurse Practitioner Primary Care; Referring Provider Obstetrics & Gynecology; Visit Provider Obstetrics & Gynecology
DX: O43.109 Malformation of placenta, unspecified, unspecified trimester (principal); O24.919 Unspecified diabetes mellitus in pregnancy, unspecified trimester; O16.9 Unspecified maternal hypertension, unspecified trimester; Z3A.00 Weeks of gestation of pregnancy not specified
CPT/HCPCS: 76819

== ENCOUNTER → 2023-08-22 | Outpatient (CLI) | payer MEDICAID, SELFPAY ==
--- NOTE | 2023-08-22 08:39 | US_ITS ---
STUDY: OBSTETRICAL ULTRASOUND - BIOPHYSICAL PROFILE REASON FOR EXAM: Female, 28 years old well being LMP: December 16, 2022. PRIOR ULTRASOUND: Comparison is made with prior sonogram dated August 16, 2023. TECHNIQUE: Transabdominal TECHNICAL QUALITY: Adequate. FINDINGS: There is a single intrauterine fetus. The fetus is in a cephalic presentation. There is demonstrated cardiac activity with a heart rate of 153 bpm. There is a normal amniotic fluid volume. The largest amniotic fluid pocket measures 5.6 cm. The amniotic fluid index (PALAK) is 15.1 cm. The placenta is anterior in location and is not low lying. There are Grade 3 placental changes. Age by LMP: 35 weeks, 4 days. YAYA by LMP: September 22, 2023. BIOPHYSICAL PROFILE: Breathing Movements (FBM): 2 Gross Body Movements (GBM): 2 Tone (FT): 2 Amniotic Fluid Volume (AFV): 2 TOTAL SCORE: US/Biophysical Prof W/O Non Stres IMPRESSION: Normal biophysical profile of 10/26. Electronically Signed: Chencho Cast MD at 11:11 EDT ,
== END | disposition home or self-care (01) ==
LOC: OPUS 08:39
PROVIDERS: PCP Nurse Practitioner Primary Care; Referring Provider Obstetrics & Gynecology; Visit Provider Obstetrics & Gynecology
DX: O43.109 Malformation of placenta, unspecified, unspecified trimester (principal); O16.9 Unspecified maternal hypertension, unspecified trimester; O24.919 Unspecified diabetes mellitus in pregnancy, unspecified trimester; Z3A.00 Weeks of gestation of pregnancy not specified
CPT/HCPCS: 76819

== ENCOUNTER 2023-08-24 20:53 | Emergency (ER) | payer MEDICAID, SELFPAY ==
[2023-08-24 20:54] VITALS: BP 157/111; PULSE 100; RESP 22; TEMP 36.9; O2SAT 99; BMI 29.9
[2023-08-24 21:06] VITALS: O2SAT 99
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
--- NOTE | 2023-08-24 21:47 | ED.RN ---
PER DR. CHAVEZ, WANTS PATIENT SEEN IN OB CM. PT TRANSPORTED BY THIS RN AND BRADY SARAVIA
[2023-08-24 21:49] VITALS: BP 154/97; PULSE 93; RESP 17; TEMP 36.3; O2SAT 98
== END 2023-08-24 21:51 | disposition home or self-care (01) ==
LOC: ED 21:25
PROVIDERS: Emergency Provider Emergency Medicine; PCP Nurse Practitioner Primary Care; Visit Provider Emergency Medicine
DX: O9A.213 Injury, poisoning and certain other consequences of external causes complicating pregnancy, third trimester (principal); O99.333 Smoking (tobacco) complicating pregnancy, third trimester; F17.210 Nicotine dependence, cigarettes, uncomplicated; S06.0X0A Concussion without loss of consciousness, initial encounter; Z3A.36 36 weeks gestation of pregnancy; V43.52XA Car driver injured in collision with other type car in traffic accident, initial encounter
CPT/HCPCS: 96365; 96366 ×21; G0378; 36415; 59025; 59050; 71046; 76815; 80307; 82565; 82570; 82962; 84156; 84450; 84460; 84550; 85025; 85384; 85460; 85610; 85730; 86850; 86900; 86901; 99221; 99282; J7120

== ENCOUNTER 2023-08-24 21:40 | Outpatient (CLI) | payer MEDICAID, SELFPAY ==
[2023-08-24] VITALS (29 sets, daily range): BP systolic 117–160; BP diastolic 62–92; PULSE 81–101; RESP 16; TEMP 37.2; O2SAT 98–100
[2023-08-24] MEDS: Lactated Ringers 1,000 ML 999 ML IV (22:05)
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
[2023-08-24 22:30] LABS: Absolute Lymphocyte Count 1.37 X10^3/uL (0.83-4.51); Absolute Neutrophil Count 12.6 X10^3/uL (2.0-7.7); Basophil# 0.04 X10^3/uL; Basophil% 0.3 % (0-1); Eosinophil# 0.03 X10^3/uL; Eosinophils% 0.2 % (0-5); Hematocrit 33.4 % (37-47); Hemoglobin 11.3 g/dL (12.0-15.0); Lymphocyte # 1.37 X10^3/ul (0.83-4.51); Lymphocyte % 9.1 % (19-41); Mean Corp Hgb Conc 33.8 g/dL (32-36); Mean Corpuscular Hgb 30.1 pg (27.0-32.0); Mean Corpuscular Volume 89.1 fL (81-99); Mean Platelet Vol. 11.8 fl (6.2-12.0); Monocyte# 0.89 X10^3/uL; Monocyte% 5.9 % (0-10); NRBC Flagged by Analyzer 0 % (0-5); Platelet Count 195 K/mm3 (150-450); RBC Distribution Width CV 12.8 % (11.6-14.6); RBC Distribution Width SD 41.9 fl (35.1-43.9); Red Blood Count 3.75 M/mm3 (4.2-5.4)
[2023-08-24 22:43] LABS: Bedside Glucose 221 mg/dL (74-106)
[2023-08-24 22:45] LABS: Fibrinogen 438 mg/dl (203-444)
[2023-08-24 22:51] LABS: AST(SGOT) 18 U/L (15-37); Alanine Aminotransfer ALT/SGPT 15 U/L (13-56); EST Glomerular Filtration Rate 128 mL/min (>60); Est Glom Filt Rate - Afr Amer 154 mL/min (>60); Protein, Urine (Random) 18.9 mg/dL (<11.9); Protein:Creat Ratio 514 mg/g CRE (0-200); Uric Acid 3.3 mg/dL (2.6-6.0)
[2023-08-24] MEDS: Lactated Ringers 1,000 ML 100 ML IV (23:40)
[2023-08-25] VITALS (8 sets, daily range): BP systolic 116–144; BP diastolic 62–83; PULSE 76–92; RESP 16; TEMP 36.3–37; O2SAT 99–100
[2023-08-25 00:53] LABS: Amphetamine Urine NEGATIVE (<1000 ng/mL); Barbiturate Urine NEGATIVE (< 200 ng/mL); Benzodiazepine Urine NEGATIVE (< 200 ng/mL); Cocaine Urine NEGATIVE (< 300 ng/mL); Ecstacy Urine NEGATIVE (< 500 ng/mL); Methadone Urine NEGATIVE (< 300 ng/mL); Opiates Urine NEGATIVE (< 300 ng/mL); PCP Urine NEGATIVE (< 25 ng/mL); THC Urine NEGATIVE (< 50 ng/mL); Vista UDS pH Range 5
[2023-08-25 04:00] LABS: Absolute Lymphocyte Count 1.68 X10^3/uL (0.83-4.51); Absolute Neutrophil Count 7.9 X10^3/uL (2.0-7.7); Basophil# 0.04 X10^3/uL; Basophil% 0.4 % (0-1); Eosinophil# 0.06 X10^3/uL; Eosinophils% 0.6 % (0-5); Hemoglobin 10.3 g/dL (12.0-15.0); Lymphocyte # 1.68 X10^3/ul (0.83-4.51); Mean Corp Hgb Conc 33.2 g/dL (32-36); Mean Corpuscular Hgb 29.8 pg (27.0-32.0); Mean Corpuscular Volume 89.6 fL (81-99); Mean Platelet Vol. 11.2 fl (6.2-12.0); Monocyte# 0.71 X10^3/uL; Monocyte% 6.8 % (0-10); NRBC Flagged by Analyzer 0 % (0-5); Neutrophil # 7.94 X10^3/uL (2.7-7.7); Neutrophil % 75.8 % (47-70); Platelet Count 178 K/mm3 (150-450); RBC Distribution Width SD 42.5 fl (35.1-43.9); Red Blood Count 3.46 M/mm3 (4.2-5.4); White Blood Count 10.5 K/mm3 (4.4-11.0)
[2023-08-25 04:13] LABS: Fibrinogen 420 mg/dl (203-444)
--- NOTE | 2023-08-25 06:00 | US_ITS ---
STUDY: SECOND AND THIRD TRIMESTER OBSTETRICAL ULTRASOUND - LIMITED REASON FOR EXAM: Female, 28 years old placental evaluation LMP: 12/16/2022 PRIOR ULTRASOUND: 08/22/2023 TECHNIQUE: Transabdominal TECHNICAL QUALITY: Adequate. FINDINGS: There is a single intrauterine fetus. The fetus is in a cephalic presentation. There is demonstrated cardiac activity with a heart rate of 148 bpm. There is a normal amniotic fluid volume. The largest amniotic fluid pocket measures 5.9 cm. The amniotic fluid index (PALAK) is 16.8 cm. The placenta is anterior in location and is not low lying. No disruption of the placenta is noted. There are Grade 3 placental changes. The cervix was not visualized Age by LMP: 36 weeks, 0 days. YAYA by LMP: 01/23/2024. US/OB Limited (No Biometrics) IMPRESSION: Single live intrauterine at 36 weeks 0 days with heart rate of 148 bpm. Placenta is anterior, not low lying and is free of abnormality. Electronically Signed: Mahesh Winston MD at 8:33 EDT ,
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
[2023-08-25] MEDS: Lactated Ringers 1,000 ML 100 ML IV (08:43)
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
[2023-08-25 14:00] LABS: Absolute Lymphocyte Count 1.64 X10^3/uL (0.83-4.51); Absolute Neutrophil Count 7.9 X10^3/uL (2.0-7.7); Basophil# 0.03 X10^3/uL; Basophil% 0.3 % (0-1); Eosinophil# 0.06 X10^3/uL; Eosinophils% 0.6 % (0-5); Hematocrit 30.5 % (37-47); Hemoglobin 10.2 g/dL (12.0-15.0); Lymphocyte # 1.64 X10^3/ul (0.83-4.51); Mean Corp Hgb Conc 33.4 g/dL (32-36); Mean Corpuscular Hgb 30.1 pg (27.0-32.0); Mean Platelet Vol. 11.5 fl (6.2-12.0); Monocyte# 0.64 X10^3/uL; Monocyte% 6.2 % (0-10); NRBC Flagged by Analyzer 0 % (0-5); Neutrophil # 7.86 X10^3/uL (2.7-7.7); Neutrophil % 76.4 % (47-70); Platelet Count 191 K/mm3 (150-450); RBC Distribution Width CV 12.9 % (11.6-14.6); RBC Distribution Width SD 42.5 fl (35.1-43.9); Red Blood Count 3.39 M/mm3 (4.2-5.4); White Blood Count 10.3 K/mm3 (4.4-11.0)
[2023-08-25 14:35] LABS: Prothrombin Time (Protime)PT. 13.4 SECONDS (11.7-14.9)
[2023-08-25 14:36] LABS: Partial Thromboplast Time 28.2 Seconds (24.1-36.2)
[2023-08-25 14:47] LABS: Fibrinogen 419 mg/dl (203-444)
--- NOTE | 2023-08-25 19:32 | NURSING ---
1730: Pt has her own glucometer: [phone]
== END 2023-08-25 20:15 | disposition home or self-care (01) ==
LOC: WPOUT 21:49 → WP 21:49
PROVIDERS: Obstetrics & Gynecology; PCP Nurse Practitioner Primary Care; Visit Provider Obstetrics & Gynecology
DX: O99.891 Other specified diseases and conditions complicating pregnancy (principal); V49.40XA Driver injured in collision with unspecified motor vehicles in traffic accident, initial encounter; Y92.410 Unspecified street and highway as the place of occurrence of the external cause; Z96.41 Presence of insulin pump (external) (internal); O24.013 Pre-existing type 1 diabetes mellitus, in pregnancy, third trimester; O16.3 Unspecified maternal hypertension, third trimester; R07.81 Pleurodynia; O43.103 Malformation of placenta, unspecified, third trimester; O99.333 Smoking (tobacco) complicating pregnancy, third trimester; F17.200 Nicotine dependence, unspecified, uncomplicated; Z3A.35 35 weeks gestation of pregnancy
CPT/HCPCS: 96360; 96361 ×2; 36415; 59025; 59050 ×2; 71046; 76815; 80307; 82565; 82570; 82962; 84156; 84450; 84460; 84550; 85025; 85384; 85460; 85610; 85730; 86850; 86900; 86901; G0378 ×2; J7120 ×2; 99212; 99221; G0463

== ENCOUNTER → 2023-08-29 | Outpatient (CLI) | payer MEDICAID, SELFPAY ==
--- NOTE | 2023-08-29 07:45 | US_ITS ---
STUDY: OBSTETRICAL ULTRASOUND - BIOPHYSICAL PROFILE REASON FOR EXAM: Female, 28 years old well being LMP: December 16, 2022. PRIOR ULTRASOUND: Comparison is made with prior study dated August 25, 2023. TECHNIQUE: Transabdominal TECHNICAL QUALITY: Adequate. FINDINGS: There is a single intrauterine fetus. The fetus is in a cephalic presentation. There is demonstrated cardiac activity with a heart rate of 158 bpm. There is a normal amniotic fluid volume. The largest amniotic fluid pocket measures 7.4 cm. The amniotic fluid index (PALAK) is 17.2 cm. The placenta is anterior in location and is not low lying. There are Grade 3 placental changes. Age by LMP: 36 weeks, 4 days. YAYA by LMP: September 22, 2023. BIOPHYSICAL PROFILE: Breathing Movements (FBM): 2 Gross Body Movements (GBM): 2 Tone (FT): 2 Amniotic Fluid Volume (AFV): 2 TOTAL SCORE: 8 / 8 US/Biophysical Prof W/O Non Stres IMPRESSION: Normal biophysical profile of 10/26. Electronically Signed: Chencho Cast MD at 11:09 EDT ,
== END | disposition home or self-care (01) ==
PROVIDERS: PCP Nurse Practitioner Primary Care; Referring Provider Obstetrics & Gynecology; Visit Provider Obstetrics & Gynecology
DX: O43.109 Malformation of placenta, unspecified, unspecified trimester (principal); E10.9 Type 1 diabetes mellitus without complications; Z3A.00 Weeks of gestation of pregnancy not specified; O24.919 Unspecified diabetes mellitus in pregnancy, unspecified trimester; O16.9 Unspecified maternal hypertension, unspecified trimester; O99.280 Endocrine, nutritional and metabolic diseases complicating pregnancy, unspecified trimester
CPT/HCPCS: 76819; 87081

== ENCOUNTER 2023-09-01 18:50 | Inpatient (IN) | payer MEDICAID, SELFPAY ==
[2023-09-01 19:29] VITALS: PULSE 103; RESP 16; TEMP 37.4; O2SAT 98
[2023-09-01 19:30] VITALS: BP 126/79; PULSE 97
[2023-09-01] MEDS: Lactated Ringers 1,000 ML 50 ML IV (19:45)
[2023-09-01 19:56] VITALS: BMI 28.0
[2023-09-01 20:02] LABS: Absolute Neutrophil Count 8.9 X10^3/uL (2.0-7.7); Basophil# 0.03 X10^3/uL; Basophil% 0.3 % (0-1); Eosinophil# 0.03 X10^3/uL; Eosinophils% 0.3 % (0-5); Hematocrit 29.6 % (37-47); Hemoglobin 10.1 g/dL (12.0-15.0); Lymphocyte % 14.1 % (19-41); Mean Corp Hgb Conc 34.1 g/dL (32-36); Mean Corpuscular Hgb 30.1 pg (27.0-32.0); Mean Corpuscular Volume 88.4 fL (81-99); Monocyte# 0.76 X10^3/uL; Monocyte% 6.7 % (0-10); NRBC Flagged by Analyzer 0 % (0-5); Neutrophil # 8.86 X10^3/uL (2.7-7.7); Neutrophil % 78.2 % (47-70); Platelet Count 226 K/mm3 (150-450); RBC Distribution Width CV 13.2 % (11.6-14.6); RBC Distribution Width SD 42.1 fl (35.1-43.9); Red Blood Count 3.35 M/mm3 (4.2-5.4); White Blood Count 11.3 K/mm3 (4.4-11.0)
[2023-09-01 20:36] LABS: Syphilis Antibodies Non-reactive
[2023-09-01] MEDS: miSOPROStol 25 MCG TABLET VAGINAL (20:54)
[2023-09-01 20:59] VITALS: BP 136/82; PULSE 86; RESP 16; TEMP 36.7
[2023-09-01 21:23] LABS: Bedside Glucose 102 mg/dL (74-106)
[2023-09-01 22:12] VITALS: RESP 16; TEMP 36.3
[2023-09-01 22:13] VITALS: BP 107/61; PULSE 86
[2023-09-01 22:15] LABS: Bedside Glucose 81 mg/dL (74-106)
[2023-09-01 23:26] LABS: Bedside Glucose 65 mg/dL (74-106)
[2023-09-01 23:40] LABS: Bedside Glucose 90 mg/dL (74-106)
[2023-09-02] VITALS (145 sets, daily range): BP systolic 93–180; BP diastolic 50–101; PULSE 66–107; RESP 16; TEMP 36.3–38.3; O2SAT 82–100
[2023-09-02 00:15] LABS: Bedside Glucose 115 mg/dL (74-106)
[2023-09-02] MEDS: LACTATED RINGERS 500 ML 999 ML IV ×2 (01:00→12:54)
[2023-09-02 01:21] LABS: Bedside Glucose 105 mg/dL (74-106)
[2023-09-02 02:27] LABS: Bedside Glucose 85 mg/dL (74-106)
[2023-09-02 03:49] LABS: Bedside Glucose 103 mg/dL (74-106)
[2023-09-02] MEDS: 0.9% Normal Saline Single 100 ML IV.SOLN. INTRA-UTER (03:56)
[2023-09-02] MEDS: fentaNYL 100 MCG/2 ML Ampul IV (04:07)
--- NOTE | 2023-09-02 04:13 | HP.PCM.OB_ITS ---
HPI - General General Date of Admission: 09/01/23 HPI Narrative BRADLEY ANDRADE, is a 28 F who presents for IOL secondary to preeclampsia with mild features and type 1 diabetes controlled with an insulin pump. Maternal Data Information YAYA Calculator Estimated Delivery Date Method Current WG Current Estimate 09/22/23 LMP (Certain) 37w 1d Other Estimates 09/24/23 Ultrasound #1 36w 6d PFSH PFSH Medical History Myopia of both eyes Insulin pump titration Presence of insulin pump Hypertension Trichomonas infection Fracture of right wrist Fracture of right foot Diabetes type I Smoker Home Medications ?Medication ?Instructions ?Recorded ?Last Taken ?Type vitamins no.163-iron tab PO 02/18/23 08/24/23 History bis-gly 20 mg-folate no.10 1 mg tablet (PNV Tabs 20-1) subcutaneous insulin pump 02/18/23 Unknown History insulin aspart U-100 100 unit/mL 100 unit subcut DAILY #90 mL 07/11/23 Unknown Rx subcutaneous solution (Novolog U-100 Insulin aspart) Allergy/AdvReac Type Severity Reaction Status Date / Time No Known Allergies Allergy Verified 09/01/23 19:57 Family History Grandmother Thyroid disorder maternal Aunt Stillbirth maternal Surgical History History of surgery Social History adopted: No household members: friend(s) current occupational status: employed 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 pets and animals: Yes pets and animals: dog(s) history of recent travel: No sexually active: Yes Smoking Status: Current every day smoker tobacco type: cigarettes quit status: considering quitting alcohol intake: never substance use type: does not use well-balanced diet: daily or most days caffeine: No eating out: rarely or never during the past year weight has: remained stable what type of physical activity do you participate in: none pinky/voodoo: None seatbelt use: sometimes do you feel safe at home: Yes additional social history: NO SIGNIFICANT OTHER, FOB will be involved in baby's life. Laci Cantrell History 1 Elective abortions Hx Para 0 Spontaneous abortions Hx # Term Pregnancies Ectopic pregnancies Hx # Pregnancies Multiple births # of living children Visit Details Expected Delivery Route/Plan Labor Preferences- CB/BF classes: [] labor support person: [] labor intervention preferences: [] pain management options preferred: [] cut cord/dad catch: [] : [] PP control planned: [] discussed possible routes of delivery and associated risks: [] special requests: [] Plans Covid status: [] Flu vaccine: [] Tdap vaccine: given Rhogam: na LARC form signed: declined movement and labor precautions reviewed. Problem list reviewed and updated with the most current plan of care details and appropriate orders placed. Relevant counseling for the gestational age provided. Continue routine care and follow up unless otherwise noted in visit notes/problem list details OB Flowsheet Initial Weight: Not Recorded Date -?-?-?-?-?-?-?-?-?-?-?-?- EGA Weight BP Urine Prot -?-?-?-?-?-?-?-?-?-?-?-?- Glucose FHR FuHt Pres Dilation -?-?-?-?-?-?-?-?-?-?-?-?- Effaced St Visit Note 02/21/23 -?-?-?-?-?-?-?-?-?-?-?-?- 9w 4d 132 lb 2 oz 167/82 -?-?-?-?-?-?-?-?-?-?-?-?- 168 -?-?-?-?-?-?-?-?-?-?-?-?- JV- pt is here w ith her girlfriend and also the FOB. She has type 1 dm and on an insulin pump. will consult Dr. Aleman. CRL is consistent with LMP. starting nicotine patch , close monitoring of BP. rpt was normal. will order PIH labs. had bp issues in the past and was on a medication but she can not remember the name. Declines NIPT and carrier testing. 03/15/23 -?-?-?-?-?-?-?-?-?-?-?-?- 12w 5d 130 lb 8 oz 133/84 Nega tive -?-?-?-?-?-?-?-?-?-?-?-?- Negative 157 -?-?-?-?-?-?-?-?-?-?-?-?- LC- had vaginal bleeding with clots yesterday, presented to ED with reassuring US. no further bleeding this AM. office US today with active fetus and FHR. SANTA 30mm noted. LC-problem visit: had vagina l bleeding with clots yesterday, presented to ED with reassuring US. no further bleeding this AM. office US today with active fetus and FHR. SANTA 30mm noted. 03/25/23 -?-?-?-?-?-?-?-?-?-?-?-?- 14w 1d 136 lb 132/75 Negative -?-?-?-?-?-?-?-?-?-?-?-?- Negative 150 -?-?-?-?-?-?-?-?-?-?-?-?- SM- vb minimal o ccasional brown- had some last week. BS fairly controlled, sees . ordered EKG, US, instructed to start ASA. will do AFP next visit. 04/20/23 -?-?-?-?-?-?-?-?-?-?-?-?- 17w 6d 143 lb 132/83 Negative -?-?-?-?-?-?-?-?-?-?-?-?- Negative 156 -?-?-?-?-?-?-?-?-?-?-?-?- JV- EKG ordered. pt still needs new ob labs. has anatomy scan scheduled for tomorrow. 05/16/23 -?-?-?-?-?-?-?-?-?-?-?-?- 21w 4d 143 lb 122/82 Negative -?-?-?-?-?-?-?-?-?-?-?-?- Negative 150 -?-?-?-?-?-?-?-?-?-?-?-?- Sm- no vb lof go od fm no regular ctx discussed genetic screening. 06/14/23 -?-?-?-?-?-?-?-?-?-?-?-?- 25w 5d 149 lb 2 oz 126/81 Nega tive -?-?-?-?-?-?-?--?-?-?-?-?- Negative 150 25 -?-?-?-?-?-?-?-?-?-?-?-?- SM- no vb lof go od fm no regualr ctx BS controlled SM- no vb lof good fm no reg ualr ctx BS controlled discussed fu with mfm for scan in 1-2 weeks due to hematoma seen 07/04/23 -?-?-?-?-?-?-?-?-?-?-?-?- 28w 4d 152 lb 6 oz 134/89 Nega tive -?-?-?-?-?-?-?-?-?-?-?-?- Negative 141 28 -?-?-?-?-?-?-?-?-?-?-?-?- JV- tdap given t dionisio. has mfm follow up on . following with Dr. Aleman. bp's stable 07/18/23 -?-?-?-?-?--?-?-?-?-?-?-?- 30w 4d 152 lb 8 oz 120/70 Nega tive -?-?-?-?-?-?-?-?-?-?-?-?- Negative 135 30 -?-?-?-?-?-?-?-?-?-?-?-?- JV- last growth scan was normal. no longer has echogenic bowel. normal glucose levels and bp. start twice weekly nsts 08/03/23 -?-?-?-?-?-?-?-?-?-?-?-?- 32w 6d 152 lb 2 oz 128/79 Nega tive -?-?-?-?-?-?-?-?-?-?-?-?- Negative 130 -?-?-?-?-?-?-?-?-?-?-?-?- JV- NST reactive . has ultrasound with mfm tomorrow and is unsure if this is a bpp. if it is not she will be returning on Tuesday for another NST. 08/18/23 -?-?-?-?-?-?-?-?-?-?-?-?- 35w 0d 153 lb 121/77 -?-?-?-?-?-?-?-?-?-?-?-?- 140 35 -?-?-?-?-?-?-?-?-?-?-?-?- SM- no vb lof go od fm no regular ctx recommend IOL 37 weeks 08/29/23 -?-?-?-?-?-?-?-?-?-?-?-?- 36w 4d 156 lb 147/93 132/87 Negative -?-?-?-?-?-?-?-?-?-?-?-?- 500 g/dL 130 36 Cephalic 0 -?-?-?-?-?-?-?-?-?-?-?-?- SM- no vb lof go od fm n oregular ctx discussed IOL night cytotec NST FHR Rate Baby A Baseline: 140 Variability:: Moderate Accelerations:: 15 x 15 Decelerations:: None NST Reactive:: Yes FHR Category:: Category I Uterine Activity:: irregular ROS Constitutional Constitutional: Reports systems reviewed and no addt'l complaints, except as documented Eyes Eyes: Denies change in vision ENT HEENT: Reports systems reviewed and no addt'l complaints, except as documented; Denies headache(s) Cardiovascular Cardiovascular: Reports systems reviewed and no addt'l complaints, except as documented; Denies chest pain or dyspnea Respiratory/Chest Respiratory/Chest: Reports systems reviewed and no addt'l complaints, except as documented Gastrointestinal Gastrointestinal: Reports systems reviewed and no addt'l complaints, except as documented; Denies abdominal pain Genitourinary Genitourinary: Reports systems reviewed and no addt'l complaints, except as documented, contractions Details: present (irregular) and movement Details: present; Denies dysuria or genital lesions Musculoskeletal Musculoskeletal: Reports systems reviewed and no addt'l complaints, except as documented Neurologic Neurologic: Reports systems reviewed and no addt'l complaints, except as documented Endocrine Endocrinology: Reports systems reviewed and no addt'l complaints, except as documented Vital Signs Vital Signs Vital Signs: 09/01/23 19:29 09/01/23 19:29 09/01/23 19:29 Temperature Temperature Source Temporal Pulse Rate 103 H Respiratory Rate 16 Blood Pressure BP Systolic BP Diastolic Pulse Ox 09/01/23 19:29 09/01/23 19:29 09/01/23 19:30 Temperature 99.4 F H Temperature Source Pulse Rate Respiratory Rate Blood Pressure 126/79 H BP Systolic 126 BP Diastolic 79 Pulse Ox 98 09/01/23 19:30 09/01/23 20:59 09/01/23 20:59 Temperature Temperature Source Temporal Pulse Rate 97 Respiratory Rate Blood Pressure 136/82 H BP Systolic 136 BP Diastolic 82 Pulse Ox 09/01/23 20:59 09/01/23 20:59 09/01/23 20:59 Temperature 98.1 F Temperature Source Pulse Rate 86 Respiratory Rate 16 Blood Pressure BP Systolic BP Diastolic Pulse Ox 09/01/23 22:12 09/01/23 22:12 09/01/23 22:12 Temperature 97.3 F L Temperature Source Temporal Pulse Rate Respiratory Rate 16 Blood Pressure BP Systolic BP Diastolic Pulse Ox 09/01/23 22:13 09/01/23 22:13 09/02/23 01:01 Temperature Temperature Source Temporal Pulse Rate 86 Respiratory Rate Blood Pressure 107/61 BP Systolic 107 BP Diastolic 61 Pulse Ox 09/02/23 01:01 09/02/23 01:01 09/02/23 01:01 Temperature Temperature Source Pulse Rate 71 Respiratory Rate 16 Blood Pressure BP Systolic BP Diastolic Pulse Ox 99 09/02/23 01:01 09/02/23 01:02 09/02/23 01:02 Temperature 98.1 F Temperature Source Pulse Rate 70 Respiratory Rate Blood Pressure 135/68 H BP Systolic 135 BP Diastolic 68 Pulse Ox 09/02/23 03:25 09/02/23 03:25 09/02/23 03:25 Temperature 98.0 F Temperature Source Temporal Pulse Rate Respiratory Rate 16 Blood Pressure BP Systolic BP Diastolic Pulse Ox 09/02/23 03:27 09/02/23 03:27 09/02/23 03:28 Temperature Temperature Source Pulse Rate 78 Respiratory Rate Blood Pressure 145/88 H BP Systolic 145 BP Diastolic 88 Pulse Ox 100 09/02/23 03:28 Temperature Temperature Source Pulse Rate 77 Respiratory Rate Blood Pressure BP Systolic BP Diastolic Pulse Ox Weight Weight: 153 lb 8 oz Body Mass Index (BMI) 28.0 Physical Exam Const alert, oriented x3, no apparent distress and healthy appearing HEENT normocephalic and moist oral mucous membranes Head and Scalp: atraumatic Neck full ROM, no lymphadenopathy, supple and thyroid normal General: trachea midline Lymph Lymphatic: no lymphadenopathy noted Chest inspection of chest normal Resp normal respiratory effort Cardio regular rate GI normal to inspection, nondistended, normoactive bowel sounds, soft to palpation and non-tender Inspection: gravid external exam normal Manual OB Exam: estimated gestational size appropriate, presentation cephalic, dilated, effaced and station Extremity normal to inspection General Extremity: Negative for edema Skin no rashes or lesions noted Neuro no focal motor deficits and deep tendon reflexes 2+ bilaterally Motor Exam: strength 5/5 throughout and clonus absent Psych mental status grossly normal Labs Labs Labs: Blood Type B POSITIVE Antibody Screen NEGATIVE Hct 29.6 % (37-47) L Hgb 10.1 g/dL (12.0-15.0) L Obstetrics Ultrasound Syphilis Total Ab Non-reactive Rubella IgG Antibody Reactive (Nonreactive) Hep Bs Antigen Non-Reactive (Nonreactive) Hepatitis C Antibody Non-Reactive (Nonreactive) Chlamydia DNA (CARY) Negative (Negative) N.gonorrhoeae DNA (CARY) Negative (Negative) HIV 1&2 Antibody Non-Reactive (Nonreactive) Assessment & Plan (1) Placental abnormality: COMMENT: lakes seen and possible hematoma in amniotic sac, recommend fu scan with MFM and consult for recommendations. plan 2x weekly bpps after 32 per MFM due to this and comorbidities (2) Echogenic bowel of fetus: COMMENT: RESOLVED (3) COVID-19 affecting in first trimester: COMMENT: asa 81mg daily (4) Supervision of high-risk : COMMENT: PRR, , YAYA 09/22/23, boy Francesco PETER Cantrell (5) : QUALIFIERS: Weeks of gestation: 36 weeks Qualified Code(s): Z3A.36 - 36 weeks gestation of COMMENT: GBS neg, declined genetic & carrier testing, declined AFP screening. anatomy US reviewed. (6) Hypertension: COMMENT: no meds at present (7) Diabetes type I: QUALIFIERS: Diabetes mellitus complication status: without complication Qualified Code(s): E10.9 - Type 1 diabetes mellitus without complications (8) Smoker: COMMENT: encouraged cessation. (9) Presence of insulin pump: (10) Insulin pump titration: (11) Moderate pre-eclampsia in third trimester: COMMENT: IOL 37 (12) Encounter for induction of labor: PLAN: Plan Patient presents IOL, plan management for with cytotec and now fb due to frequency of contractions. Pain management: plans epidural. GBS negative. Management of any complications: type 1 diabetes- continue insulin pump with titration, use IV insulin drip if needed. monitor bps I have reviewed the [facility] and made any clinically relevant updates.
--- NOTE | 2023-09-02 04:21 | PCM.PN.BLA ---
Progress Note cat I tracing, marin placed due to no cervical change and ctx too frequent to give cytotec, patient comfortable with contractions. expectant management with marin bulb in place
[2023-09-02] MEDS: Ondansetron 4 MG/2 ML Vial IV ×4 (04:38→21:50)
[2023-09-02 05:01] LABS: ALB/GLOB Ratio 0.8 RATIO (0.9-2.4); AST(SGOT) 19 U/L (15-37); Alanine Aminotransfer ALT/SGPT 19 U/L (13-56); Albumin, Serum 2.7 g/dL (3.2-5.0); Alkaline Phosphatase 134 U/L (45-117); Anion Gap 7 (5-15); BUN 10 mg/dL (7-18); BUN/Creat Ratio 19.6 RATIO (10-20); Chloride 104 mmol/L (98-107); Creatinine, Serum 0.51 mg/dL (0.55-1.02); EST Glomerular Filtration Rate 152 mL/min (>60); Est Glom Filt Rate - Afr Amer 184 mL/min (>60); Estimated Creatinine Clearance 150.14 ml/min; Globulin 3.4 g/dL (2.2-4.2); Glucose 151 mg/dL (74-106); Potassium 3.6 mmol/L (3.5-5.1); Protein, Total 6.1 g/dL (6.4-8.2); Sodium Level 135 mmol/L (136-145)
[2023-09-02 05:38] LABS: Bedside Glucose 106 mg/dL (74-106)
[2023-09-02 05:58] LABS: Uric Acid 3.4 mg/dL (2.6-6.0)
[2023-09-02 06:34] LABS: Bedside Glucose 85 mg/dL (74-106)
[2023-09-02 07:50] LABS: Bedside Glucose 84 mg/dL (74-106)
--- NOTE | 2023-09-02 08:34 | PN_ITS ---
Progress Note marin bulb now out. patient is requesting a snack. current tracing: FHT: Moderate variability reactive no decelerations category I tracing [place]: q 2-4 min Contractions cx 3/60/-2, AROM performed after patient verbal consent. clear fluid return A/P: type 1 dm on insulin pump. Continue expectant management and if contractions space out start pitocin. ok to have light breakfast before starting pitocin.
[2023-09-02 08:51] LABS: Bedside Glucose 84 mg/dL (74-106)
[2023-09-02] MEDS: Oxytocin 15 Units/NS 250ml 15 UNITS/250 ML IV.SOLN 2 UNITS IV (09:27)
[2023-09-02] MEDS: Lactated Ringers 1,000 ML 999 ML IV ×2 (09:30→16:05)
[2023-09-02 10:04] LABS: Bedside Glucose 71 mg/dL (74-106)
[2023-09-02] MEDS: fentaNYL-bupivacaine (epidural) 100 ML BAG EPIDURAL ×2 (10:42→16:32)
[2023-09-02] MEDS: Lactated Ringers 1,000 ML 200 ML IV ×2 (10:59→17:24)
[2023-09-02 11:29] LABS: Bedside Glucose 62 mg/dL (74-106)
[2023-09-02 13:03] LABS: Bedside Glucose 79 mg/dL (74-106)
[2023-09-02 13:03] LABS: Bedside Glucose 102 mg/dL (74-106)
[2023-09-02 13:48] LABS: Bedside Glucose 78 mg/dL (74-106)
[2023-09-02 14:55] LABS: Bedside Glucose 92 mg/dL (74-106)
--- NOTE | 2023-09-02 15:23 | PN_ITS ---
Progress Note nurse called for persistent lates >50% of contractions and not on pitocin. When I entered the room she was laying on her back and the last 3 contractions were not associated with late decelerations. Meeting with anesthesia to discuss that during her epidural placement she had higher levels of blockage that caused transient LOC and low blood pressure. This is now resolved and bp is stable. From this information we planned to watch for another 20 to 30 minutes. During the next several minutes from 1452 to 1502 the late decelerations started again and were persistent again. Cx is 4/90/-1 (minimal change after marin bulb. current tracing: FHT: Moderate variability with late decelerations. [place]: q 2-4 min spontaneous Contractions A/P: due to inability to start pitocin and >50% of contractions being late decels, the next step would be position changes again and if unchanged will need to proceed with section.
[2023-09-02] MEDS: Sodium Citrate/Citric Acid 30 ML UDC PO (16:14)
[2023-09-02 17:35] LABS: Bedside Glucose 76 mg/dL (74-106)
[2023-09-02 18:05] LABS: Bedside Glucose 71 mg/dL (74-106)
[2023-09-02 19:01] LABS: Bedside Glucose 72 mg/dL (74-106)
[2023-09-02 20:08] LABS: Bedside Glucose 61 mg/dL (74-106)
--- NOTE | 2023-09-02 23:00 | EX.PCM.OBRPT ---
Assessment & Plan (1) Encounter for induction of labor: (2) Moderate pre-eclampsia in third trimester: COMMENT: IOL 37 (3) Placental abnormality: COMMENT: lakes seen and possible hematoma in amniotic sac, recommend fu scan with MFM and consult for recommendations. plan 2x weekly bpps after 32 per MFM due to this and comorbidities (4) Echogenic bowel of fetus: COMMENT: RESOLVED (5) COVID-19 affecting in first trimester: COMMENT: asa 81mg daily (6) Supervision of high-risk : COMMENT: PRR, , YAYA 09/22/23, boy Francesco GREEN Laci Cantrell (7) : QUALIFIERS: Weeks of gestation: 36 weeks Qualified Code(s): Z3A.36 - 36 weeks gestation of COMMENT: GBS neg, declined genetic & carrier testing, declined AFP screening. anatomy US reviewed. (8) Insulin pump titration: (9) Presence of insulin pump: (10) Smoker: COMMENT: encouraged cessation. (11) Diabetes type I: QUALIFIERS: Diabetes mellitus complication status: without complication Qualified Code(s): E10.9 - Type 1 diabetes mellitus without complications (12) Hypertension: COMMENT: no meds at present Maternal Data Information YAYA Calculator Estimated Delivery Date Method Current WG Current Estimate 09/22/23 LMP (Certain) 37w 1d Other Estimates 09/24/23 Ultrasound #1 36w 6d Final YAYA: 09/22/23 Final YAYA Source: LMP Gestational age: 37 weeks 1 day Vaginal Delivery Maternal Presentation Maternal Presentation: Medically Indicated Induction Type of Induction: Pitocin, Reardon Bulb, Amniotomy and Cytotec Operative Information Date of Procedure: 02/19/21 Pre-Operative Diagnosis: 37 weeks 1 day, type 1 DM, Post-Operative Diagnosis: 37 weeks 1 day type 1 DM, Surgery / Procedure Performed: Spontaneous Vaginal Delivery Type of Anesthesia: Epidural Drain: Reardon to straight drain Estimated Blood Loss: 100cc Time of Delivery: 22:46 Findings Description of Procedure: Patient began pushing and delivered the head in the MAINOR presentation. The head was delivered atraumatically . The anterior and posterior shoulders delivered without complication followed by the rest of the and the infant was placed on the maternal abdomen. Delayed cord clamping was employed for approximately 60 seconds. Cord was clamped and cut and gentle traction was applied to the cord and the placenta delivered spontaneously immediately following it was noted to be intact with three-vessel cord. The perineum and vagina were inspected and noted to have a 1st degree perineal laceration. This was repaired with a 2-0 vicryl. EBL was 100 cc. Patient and infant tolerated delivery well. baby boy Haresh Presentation: Vertex Amniotic Membrane Rupture Type: Spontaneous Amniotic Fluid Description: Clear Placental Delivery Description: Spontaneous Placenta Disposition: [facility] Cord Vessel Description: 3 Vessels Cord Entanglement: None Infant A Gender: Male (1 minute): 9 (5 minute): 10 Delayed Cord Clamping: Yes Post Vaginal Delivery Medications Given After Delivery: IV Pitocin Episiotomy Description: None Laceration: 1st degree Complication Complications: None Multi Select Codes Urinary/Genital Urinary/Genital CPT Codes: 46552 Vaginal Delivery+ Care([facility])
[2023-09-02] MEDS: Acetaminophen 500 MG Tablet PO (23:02)
--- NOTE | 2023-09-02 23:06 | PCM.DC ---
Discharge Instructions Diet Discharge Diet: No restrictions Activity Discharge Activity: Return to Normal Activity, May Not Drive (while taking narcotic pain medications.) and May Shower May resume sexual activity in: 4-6 weeks Dressing / Incision Call your doctor if your incision/area has: Continuous Slow Oozing, Sudden Increased Bleeding, Increased Pain/ Swelling, Increased Redness and Foul Smelling Discharge Follow Up Care Please Follow Up With: Sho Michaud DO When: Call [phone] to make an appointment with your doctor in 6 weeks. If you had elevated blood pressure or 4th degree laceration, you will need to be seen in 2 weeks. Test Results: Test results from this visit will be discussed in further detail at your follow-up appointment, if applicable. Discharge Plan Admission Admit Date/Time: 09/01/23 18:50 Attending Provider: Julissa Garduno Primary Care Provider: Maria Raygoza NP Discharge Orders/Prescriptions Prescriptions: No Action (DME) subcutaneous insulin pump Misc See Rx Instructions .Route Rx Instructions: As directed PNV Tabs 20-1 20 mg iron- 1 mg tablet PO insulin aspart U-100 [Novolog U-100 Insulin aspart] 100 unit/mL solution 100 unit subcut DAILY Qty: 90 2RF Referrals / Follow Up: Maria Raygoza NP, [employer] [Primary Care Provider] -
[2023-09-02 23:20] LABS: Bedside Glucose 98 mg/dL (74-106)
[2023-09-02 23:20] LABS: Bedside Glucose 68 mg/dL (74-106)
[2023-09-02] MEDS: Oxytocin 15 Units/NS 250ml 15 UNITS/250 ML IV.SOLN 83 UNITS IV (23:23)
[2023-09-03] VITALS (10 sets, daily range): BP systolic 129–169; BP diastolic 62–89; PULSE 69–102; RESP 16–18; TEMP 36.6–37.8; O2SAT 99–100
[2023-09-03] MEDS: Ibuprofen 600 MG Tablet PO ×3 (01:40→18:13)
--- NOTE | 2023-09-03 08:17 | PN.OBGYN_ITS ---
Subjective Subjective Patient doing well without complaints. Tolerating PO. Ambulating and voiding without difficulty. Feeding well. Denies chest pain, shortness of breath, calf pain/swelling, fevers, chills, lightheadedness. Objective Data Objective Data Vital Signs: Vital Signs Temp Pulse Resp BP Pulse Ox O2 Del Method 98.1 F 88 16 135/71 H 99 Room Air 09/03/23 05:00 09/03/23 05:00 09/03/23 05:00 09/03/23 05:00 09/03/23 05:00 09/03/23 05:00 Oxygen Delivery Method Room Air Weight: 153 lb 8 oz Body Mass Index (BMI) 28.0 Intake & Output: Intake and Output for Last 24 Hours 09/01/23 09/02/23 09/03/23 23:59 23:59 23:59 Intake Total 6024.10 / 6024.10 250 / 250 Output Total 1200 / 1400 600 / 600 Balance 4824.10 / 4624.10 -350 / -350 Lab / Micro Data 09/01/23 19:45 09/01/23 19:45 Labs: Laboratory Results - last 24 hr 09/02/23 08:32: POC Glucose 84 09/02/23 09:30: POC Glucose 71 L 09/02/23 10:41: POC Glucose 62 L 09/02/23 11:39: POC Glucose 102 09/02/23 12:36: POC Glucose 79 09/02/23 13:28: POC Glucose 78 09/02/23 14:36: POC Glucose 92 09/02/23 16:40: POC Glucose 76 09/02/23 17:41: POC Glucose 71 L 09/02/23 18:41: POC Glucose 72 L 09/02/23 19:40: POC Glucose 61 L 09/02/23 20:38: POC Glucose 68 L 09/02/23 21:36: POC Glucose 98 ROS Constitutional Constitutional: Reports systems reviewed and no addt'l complaints, except as documented; Denies anorexia or headache(s) Cardiovascular Cardiovascular: Reports systems reviewed and no addt'l complaints, except as documented; Denies dizziness, dyspnea, nausea or tachypnea Respiratory/Chest Respiratory/Chest: Reports systems reviewed and no addt'l complaints, except as documented; Denies cough, dyspnea, shortness of breath at rest or tachypnea Gastrointestinal Gastrointestinal: Reports systems reviewed and no addt'l complaints, except as documented; Denies abdominal pain, constipation or nausea Genitourinary Genitourinary: Reports systems reviewed and no addt'l complaints, except as documented; Denies burning urination, difficulty urinating, dysuria, urinary frequency or urinary incontinence Musculoskeletal Musculoskeletal: Reports systems reviewed and no addt'l complaints, except as documented Integumentary Integumentary: Reports systems reviewed and no addt'l complaints, except as documented Neurologic Neurologic: Reports systems reviewed and no addt'l complaints, except as documented; Denies abnormal speech, dizziness or headache(s) Psychiatric Psychiatric: Reports systems reviewed and no addt'l complaints, except as documented Endocrine Endocrinology: Reports systems reviewed and no addt'l complaints, except as documented Hematologic/Lymphatic Hematologic/Lymphatic: Reports systems reviewed and no addt'l complaints, except as documented Physical Exam Const alert, oriented x3 and no apparent distress Neck full ROM Resp normal respiratory effort, normal air movement and no retractions Effort and Inspection: able to speak in complete sentences and symmetric chest movement GI soft to palpation Bladder / Kidney Exam: bladder normal to palpation Uterus Palpation: uterus fundus firm Extremity normal to inspection and full ROM Psych mental status grossly normal, thought process normal and cooperative Assessment & Plan (1) Encounter for induction of labor: (2) Moderate pre-eclampsia in third trimester: COMMENT: IOL 37 (3) Placental abnormality: COMMENT: lakes seen and possible hematoma in amniotic sac, recommend fu scan with MFM and consult for recommendations. plan 2x weekly bpps after 32 per M due to this and comorbidities (4) Echogenic bowel of fetus: COMMENT: RESOLVED (5) COVID-19 affecting in first trimester: COMMENT: asa 81mg daily (6) Supervision of high-risk : COMMENT: PRR, , YAYA 09/22/23, boy Francesco BARRERAChastity Cantrell (7) : QUALIFIERS: Weeks of gestation: 36 weeks Qualified Code(s): Z 3A.36 - 36 weeks gestation of COMMENT: GBS neg, declined genetic & carrier testing, declined AFP screening. anatomy US reviewed. (8) Insulin pump titration: (9) Presence of insulin pump: (10) Smoker: COMMENT: encouraged cessation. (11) Diabetes type I: QUALIFIERS: Diabetes mellitus complication status: without complication Qualified Code(s): E10.9 - Type 1 diabetes mellitus without complications (12) Hypertension: COMMENT: no meds at present (13) Vaginal delivery: COMMENT: JV PLAN: s/p PPD # 1 1. routine post delivery care 2. breast feeding- support given 3. rh positive 4. rubella immune Charges/Coding Multi Select Codes Urinary/Genital Urinary/Genital CPT Codes: No Charge
--- NOTE | 2023-09-03 09:27 | NURSING ---
Pre breakfast POC BS per pt insulin pump 106
--- NOTE | 2023-09-03 13:13 | NURSING ---
Pt blood sugar 71 per her pump.
[2023-09-03] MEDS: Acetaminophen 500 MG Tablet 1000 MG PO ×2 (13:14→20:49)
--- NOTE | 2023-09-03 20:58 | NURSING ---
HS blood glucose 198 per pt's pump. RiaRN
[2023-09-04] VITALS (9 sets, daily range): BP systolic 126–168; BP diastolic 70–96; PULSE 16–91; RESP 16; TEMP 36.5–36.9; O2SAT 98–100
--- NOTE | 2023-09-04 02:02 | PN.OBGYN_ITS ---
Subjective Subjective Patient doing well without complaints. Tolerating PO. Ambulating and voiding without difficulty. Feeding well. Denies chest pain, shortness of breath, calf pain/swelling, fevers, chills, lightheadedness. Objective Data Objective Data Vital Signs: Vital Signs Temp Pulse Resp BP Pulse Ox O2 Del Method 97.7 F L 72 16 126/75 H 100 Room Air 09/04/23 01:09/04/23 01:09/04/23 01:09/04/23 01:09/04/23 01:09/04/23 01:15 Oxygen Delivery Method Room Air Weight: 153 lb 8 oz Body Mass Index (BMI) 28.0 Intake & Output: Intake and Output for Last 24 Hours 09/02/23 09/03/23 09/04/23 23:59 23:59 23:59 Intake Total 6024.10 / 6024.10 250 / 250 Output Total 1200 / 1400 600 / 600 Balance 4824.10 / 4624.10 -350 / -350 Lab / Micro Data Attestation: I reviewed the patient's lab results. 09/01/23 19:45 09/01/23 19:45 ROS Constitutional Constitutional: Reports systems reviewed and no addt'l complaints, except as documented; Denies anorexia or headache(s) Cardiovascular Cardiovascular: Reports systems reviewed and no addt'l complaints, except as documented; Denies dizziness, dyspnea, nausea or tachypnea Respiratory/Chest Respiratory/Chest: Reports systems reviewed and no addt'l complaints, except as documented; Denies cough, dyspnea, shortness of breath at rest or tachypnea Gastrointestinal Gastrointestinal: Reports systems reviewed and no addt'l complaints, except as documented; Denies abdominal pain, constipation or nausea Genitourinary Genitourinary: Reports systems reviewed and no addt'l complaints, except as documented; Denies burning urination, difficulty urinating, dysuria, urinary frequency or urinary incontinence Musculoskeletal Musculoskeletal: Reports systems reviewed and no addt'l complaints, except as documented Integumentary Integumentary: Reports systems reviewed and no addt'l complaints, except as documented Neurologic Neurologic: Reports systems reviewed and no addt'l complaints, except as documented; Denies abnormal speech, dizziness or headache(s) Psychiatric Psychiatric: Reports systems reviewed and no addt'l complaints, except as documented Endocrine Endocrinology: Reports systems reviewed and no addt'l complaints, except as documented Hematologic/Lymphatic Hematologic/Lymphatic: Reports systems reviewed and no addt'l complaints, except as documented Physical Exam Const alert, oriented x3 and no apparent distress Neck full ROM Resp normal respiratory effort, normal air movement and no retractions Effort and Inspection: able to speak in complete sentences and symmetric chest movement GI soft to palpation Bladder / Kidney Exam: bladder normal to palpation Uterus Palpation: uterus fundus firm Extremity normal to inspection and full ROM Psych mental status grossly normal, thought process normal and cooperative Assessment & Plan (1) Vaginal delivery: COMMENT: JV PLAN: s/p PPD # 2 1. routine post delivery care 2. breast feeding- support given 3. rh positive 4. rubella immune 5. Discharge home (2) Encounter for induction of labor: (3) Moderate pre-eclampsia in third trimester: COMMENT: IOL 37 (4) Placental abnormality: COMMENT: lakes seen and possible hematoma in amniotic sac, recommend fu scan with MFM and consult for recommendations. plan 2x weekly bpps after 32 per MFM due to this and comorbidities (5) Echogenic bowel of fetus: COMMENT: RESOLVED (6) COVID-19 affecting in first trimester: COMMENT: asa 81mg daily (7) Supervision of high-risk : COMMENT: PRR, , YAYA 09/22/23, boy Francesco PETER Cantrell (8) : QUALIFIERS: Weeks of gestation: 36 weeks Qualified Code(s): Z 3A.36 - 36 weeks gestation of COMMENT: GBS neg, declined genetic & carrier testing, declined AFP screening. anatomy US reviewed. (9) Insulin pump titration: (10) Presence of insulin pump: (11) Smoker: COMMENT: encouraged cessation. (12) Diabetes type I: QUALIFIERS: Diabetes mellitus complication status: without complication Qualified Code(s): E10.9 - Type 1 diabetes mellitus without complications (13) Hypertension: COMMENT: no meds at present Charges/Coding Multi Select Codes Urinary/Genital Urinary/Genital CPT Codes: No Charge
[2023-09-04] MEDS: Acetaminophen 500 MG Tablet 1000 MG PO ×2 (08:30→16:47)
[2023-09-04 09:42] LABS: Hematocrit 32.3 % (37-47); Hemoglobin 10.8 g/dL (12.0-15.0); Mean Corp Hgb Conc 33.4 g/dL (32-36); Mean Corpuscular Volume 89.7 fL (81-99); Mean Platelet Vol. 11.6 fl (6.2-12.0); Platelet Count 200 K/mm3 (150-450); RBC Distribution Width CV 13.2 % (11.6-14.6); RBC Distribution Width SD 43.4 fl (35.1-43.9)
[2023-09-04 09:51] LABS: AST(SGOT) 28 U/L (15-37); Alanine Aminotransfer ALT/SGPT 21 U/L (13-56); Creatinine, Serum 0.63 mg/dL (0.55-1.02); EST Glomerular Filtration Rate 119 mL/min (>60); Est Glom Filt Rate - Afr Amer 144 mL/min (>60); Estimated Creatinine Clearance 121.54 ml/min; Uric Acid 2.9 mg/dL (2.6-6.0)
--- NOTE | 2023-09-04 10:00 | PN.OBGYN_ITS ---
Subjective Subjective Patient doing well without complaints. Tolerating PO. Ambulating and voiding without difficulty. Feeding well. Denies chest pain, shortness of breath, calf pain/swelling, fevers, chills, lightheadedness. Objective Data Objective Data Vital Signs: Vital Signs Temp Pulse Resp BP Pulse Ox O2 Del Method 97.6 F L 72 18 146/87 H 100 Room Air 09/05/23 03:09 09/05/23 03:09/05/23 03:09/05/23 03:09/05/23 03:09/05/23 03:09 Oxygen Delivery Method Room Air Weight: 153 lb 8 oz Body Mass Index (BMI) 28.0 Intake & Output: Intake and Output for Last 24 Hours 09/03/23 09/04/23 09/05/23 23:59 23:59 23:59 Intake Total 250 / 250 Output Total 600 / 600 Balance -350 / -350 Lab / Micro Data 09/04/23 09:30 09/04/23 09:30 Labs: Laboratory Results - last 24 hr 09/04/23 09:30: WBC 15.0 H, RBC 3.60 L, Hgb 10.8 L, Hct 32.3 L, MCV 89.7, MCH 30.0, MCHC 33.4, RDW Std Deviation 43.4, RDW Coeff of Radha 13.2, Plt Count 200, MPV 11.6, Creatinine 0.63, Estim Creat Clear Calc 121.54, Est GFR (MDRD) Af Amer 144, Est GFR (MDRD) Non-Af 119, Uric Acid 2.9, AST 28, ALT 21 09/04/23 13:24: POC Glucose 180 H 09/04/23 17:00: POC Glucose 128 H ROS Constitutional Constitutional: Reports systems reviewed and no addt'l complaints, except as documented; Denies anorexia or headache(s) Cardiovascular Cardiovascular: Reports systems reviewed and no addt'l complaints, except as documented; Denies dizziness, dyspnea, nausea or tachypnea Respiratory/Chest Respiratory/Chest: Reports systems reviewed and no addt'l complaints, except as documented; Denies cough, dyspnea, shortness of breath at rest or tachypnea Gastrointestinal Gastrointestinal: Reports systems reviewed and no addt'l complaints, except as documented; Denies abdominal pain, constipation or nausea Genitourinary Genitourinary: Reports systems reviewed and no addt'l complaints, except as documented; Denies burning urination, difficulty urinating, dysuria, urinary frequency or urinary incontinence Musculoskeletal Musculoskeletal: Reports systems reviewed and no addt'l complaints, except as documented Integumentary Integumentary: Reports systems reviewed and no addt'l complaints, except as documented Neurologic Neurologic: Reports systems reviewed and no addt'l complaints, except as documented; Denies abnormal speech, dizziness or headache(s) Psychiatric Psychiatric: Reports systems reviewed and no addt'l complaints, except as documented Endocrine Endocrinology: Reports systems reviewed and no addt'l complaints, except as documented Hematologic/Lymphatic Hematologic/Lymphatic: Reports systems reviewed and no addt'l complaints, except as documented Physical Exam Const alert, oriented x3 and no apparent distress Neck full ROM Resp normal respiratory effort, normal air movement and no retractions Effort and Inspection: able to speak in complete sentences and symmetric chest movement GI soft to palpation Bladder / Kidney Exam: bladder normal to palpation Uterus Palpation: uterus fundus Extremity normal to inspection and full ROM Psych mental status grossly normal, thought process normal and cooperative Assessment & Plan (1) Vaginal delivery: COMMENT: JV PLAN: s/p PPD #2 1. routine post delivery care 2. breast feeding- support given 3. rh positive 4. rubella immune 5. cancel d/c due to increase in BPs (2) Encounter for induction of labor: (3) Moderate pre-eclampsia in third trimester: COMMENT: IOL 37-labetalol 200mg BID PLAN: elevated BPs Pre e labs normal consult with Dr Dumont Labetalol 200mg BID ordered continue to monitor (4) Placental abnormality: COMMENT: lakes seen and possible hematoma in amniotic sac, recommend fu scan with MFM and consult for recommendations. plan 2x weekly bpps after 32 per MFM due to this and comorbidities (5) Echogenic bowel of fetus: COMMENT: RESOLVED (6) COVID-19 affecting in first trimester: COMMENT: asa 81mg daily (7) Supervision of high-risk : COMMENT: PRR, , YAYA 09/22/23, boy Francesco GREEN Laci Cantrell (8) : QUALIFIERS: Weeks of gestation: 36 weeks Qualified Code(s): Z 3A.36 - 36 weeks gestation of COMMENT: GBS neg, declined genetic & carrier testing, declined AFP screening. anatomy US reviewed. (9) Insulin pump titration: (10) Presence of insulin pump: (11) Smoker: COMMENT: encouraged cessation. (12) Diabetes type I: QUALIFIERS: Diabetes mellitus complication status: without complication Qualified Code(s): E10.9 - Type 1 diabetes mellitus without complications (13) Hypertension: COMMENT: no meds at present Charges/Coding Multi Select Codes Urinary/Genital Urinary/Genital CPT Codes: No Charge
[2023-09-04] MEDS: Labetalol 200 MG Tablet PO ×2 (10:22→20:15)
[2023-09-04 13:43] LABS: Bedside Glucose 180 mg/dL (74-106)
--- NOTE | 2023-09-04 14:38 | CON.PCM.LA_ITS ---
Assessment & Plan Assessment/Plan (1) Care and examination of lactating mother: PLAN: Feeding and pumping plan as listed below. HPI Consult Data Date of Consult: 09/04/23 HPI Narrative HPI Narrative: BRADLEY ANDRADE, is a 28 F who presents for and pumping assessment. History provided by the patient. [facility] Medical History Care and examination of lactating mother Myopia of both eyes Insulin pump titration Presence of insulin pump Hypertension Trichomonas infection Fracture of right wrist Fracture of right foot Diabetes type I Smoker Home Medications ?Medication ?Instructions ?Recorded ?Last Taken ?Type vitamins no.163-iron 1 tab PO 02/18/23 08/24/23 History bis-gly 20 mg-folate no.10 1 mg tablet (PNV Tabs 20-1) subcutaneous insulin pump 02/18/23 Unknown History insulin aspart U-100 100 unit/mL 100 unit subcut DAILY diabetes #90 07/11/23 Unknown Rx subcutaneous solution (Novolog mL U-100 Insulin aspart) Allergy/AdvReac Type Severity Reaction Status Date / Time No Known Allergies Allergy Verified 09/01/23 19:57 Family History Grandmother Thyroid disorder maternal Aunt Stillbirth maternal Surgical History History of surgery Social History adopted: No household members: friend(s) current occupational status: employed 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 [employer] pets and animals: Yes pets and animals: dog(s) history of recent travel: No sexually active: Yes Smoking Status: Current every day smoker tobacco type: cigarettes quit status: considering quitting alcohol intake: never substance use type: does not use well-balanced diet: daily or most days caffeine: No eating out: rarely or never during the past year weight has: remained stable what type of physical activity do you participate in: none pinky/pentecostal: None seatbelt use: sometimes do you feel safe at home: Yes additional social history: NO SIGNIFICANT OTHER, FOB will be involved in baby's life. Laci CARVALHO Integumentary Integumentary: Reports other Details: attempting to breastfeed q3 hours, baby in SCN, patient states nipple shield was started and baby is latching better for last two nursing sessions with shield, able to get about 5-7 ml when pumping after feeds, minimal discomfort with latching or pumping ; Denies rash Exam General Weight: 153 lb 8 oz alert Respiratory Respiratory: normal respiratory effort Skin normal color and Negative for rash Feeding Assessment Feeding Assessment Feed Type: Breastmilk [place] Feeding Methods: Breast and Alternative-syringe Breast-fed on which sides:: Both Position: Football and Cross cradle [place] Feeding Aids Currently Using: Nipple tolbert and Pumping Latch Score L - Latch Latch: Repeated attempts, holds nipple in mouth, stimulate to suck (1) A - Audible Swallowing Audible Swallowing: A few with stimulation (1) T - Type of Nipple Type of Nipple: Everted (after stimulation) (2) C - Comfort (Breast/Nipple) Comfort (Breast/Nipple): Filling/reddened/small blisters/bruises/mild/moderate discomfort (1) H - Hold (Positioning) Hold (Positioning): Full assist (staff holds infant at breast) (0) Total Score Total Score:: 5 Observation Feeding Observed:: Yes IBCLC Feeding Assessment Feeding Assessment Mother's feeding plans during 's hospitalization: Breastfeed Feeding Plan Feeding Plan: Will continue feeding plan with SCN, plan to start to wean IV. Mom plans to continue to pump after feeds and use nipple shield with feeds. Will adjust feeding plan as we continue to monitor babys blood sugars. Interventions IBCLC/CLC Interventions: Nipple shield and Pumping Education IBCLC/CLC Education: [id number], Risks of nipple shield use and Use of breast pump Charges/Coding Visit Charges Inpatient E&M: 11721 Init Hosp L1
[2023-09-04 17:20] LABS: Bedside Glucose 128 mg/dL (74-106)
[2023-09-05 00:07] VITALS: BP 153/81; PULSE 72; RESP 14; TEMP 36.6; O2SAT 98
[2023-09-05] MEDS: Labetalol 100 MG Tablet PO (00:30)
[2023-09-05 03:09] VITALS: BP 146/87; PULSE 72; RESP 18; TEMP 36.4; O2SAT 100
[2023-09-05 07:29] VITALS: BP 159/83; PULSE 71; RESP 16; TEMP 36.6; O2SAT 100
--- NOTE | 2023-09-05 07:58 | PCM.PN.OB ---
Subjective Subjective Patient doing well without complaints. Tolerating PO. Ambulating and voiding without difficulty. Feeding well. Denies chest pain, shortness of breath, calf pain/swelling, fevers, chills, lightheadedness. BP's are still in moderate to severe range on labetalol 200 mg bid. we discussed adding a second agent today. Baby still in NICU until at least Thrusday. Objective Data Objective Data Vital Signs: Vital Signs Temp Pulse Resp BP Pulse Ox O2 Del Method 97.8 F 71 16 159/83 H 100 Room Air 09/05/23 07:29 09/05/23 07:29 09/05/23 07:29 09/05/23 07:29 09/05/23 07:29 09/05/23 07:29 Oxygen Delivery Method Room Air Weight: 153 lb 8 oz Body Mass Index (BMI) 28.0 Intake & Output: Intake and Output for Last 24 Hours 09/03/23 09/04/23 09/05/23 23:59 23:59 23:59 Intake Total 250 / 250 Output Total 600 / 600 Balance -350 / -350 Lab / Micro Data 09/04/23 09:30 09/04/23 09:30 Labs: Laboratory Results - last 24 hr 09/04/23 09:30: WBC 15.0 H, RBC 3.60 L, Hgb 10.8 L, Hct 32.3 L, MCV 89.7, MCH 30.0, MCHC 33.4, RDW Std Deviation 43.4, RDW Coeff of Radha 13.2, Plt Count 200, MPV 11.6, Creatinine 0.63, Estim Creat Clear Calc 121.54, Est GFR (MDRD) Af Amer 144, Est GFR (MDRD) Non-Af 119, Uric Acid 2.9, AST 28, ALT 21 09/04/23 13:24: POC Glucose 180 H 09/04/23 17:00: POC Glucose 128 H ROS Constitutional Constitutional: Denies chills, fatigue, fever(s), poor appetite or weakness Eyes Eyes: Denies blurry vision, change in vision, seeing flashes or spots in vision ENT HEENT: Denies dizziness, headache(s), loss taste/smell or sore throat Cardiovascular Cardiovascular: Denies chest pain, dizziness, dyspnea, irregular heart rhythm, palpitations or rapid heart rate Respiratory/Chest Respiratory/Chest: Denies chest tightness, cough, dyspnea or breast pain Gastrointestinal Gastrointestinal: Denies abdominal pain, constipation or vomiting Genitourinary Genitourinary: Denies dysuria or flank pain Musculoskeletal Musculoskeletal: Denies difficulty walking, joint pain, limited range of motion or numbness Neurologic Neurologic: Denies abnormal movements, abnormal speech, dizziness, numbness, seizure-like activity or syncope Psychiatric Psychiatric: Denies anxiety, behavioral changes, change in appetite, confusion, depression or suicidal thoughts Physical Exam Const alert, oriented x3 and no apparent distress General Appearance: cooperative and comfortable Resp normal respiratory effort Cardio regular rate GI normal to inspection, nondistended, normoactive bowel sounds GI Narrative: uterus is firm below umbilicus Palpation: soft Back/Spine no CVA tenderness and thoraco-lumbar ROM normal Extremity normal to inspection, no clubbing, cyanosis or edema, no calf tenderness and no pedal edema Psych mental status grossly normal, thought process normal, cooperative, affect normal, speech normal, activity/motor behavior normal, denies homicidal ideation and denies suicidal ideation Assessment & Plan (1) Hypertension: COMMENT: no meds at present (2) Vaginal delivery: COMMENT: JV PLAN: Plan s/p PPD # 3 1. routine post delivery care 2. breast feeding- support given 3. rh positive 4. rubella immune 5. type 1 DM managed by insulin pump and Dr. Aleman 6. hypertension- not well controlled yet. will add procardia 30 xl now and if improved (140's/80's or less) will dc to [facility] status tonight.
[2023-09-05] MEDS: Labetalol 200 MG Tablet 300 MG PO (09:32)
[2023-09-05] MEDS: NIFEdipine 30 MG Tablet PO (09:35)
[2023-09-05 12:58] VITALS: BP 144/85; PULSE 81; RESP 17; TEMP 36.9; O2SAT 98
--- NOTE | 2023-09-05 15:18 | DCINST_ITS ---
Discharge Instructions Diet Discharge Diet: No restrictions Activity Discharge Activity: Return to Normal Activity, May Not Drive (while taking narcotic pain medications.) and May Shower May resume sexual activity in: 4-6 weeks Dressing / Incision Call your doctor if your incision/area has: Continuous Slow Oozing, Sudden Increased Bleeding, Increased Pain/ Swelling, Increased Redness and Foul Smelling Discharge Follow Up Care Please Follow Up With: Sho Michaud DO When: Call [phone] to make an appointment with your doctor in 1 week for a bp check and 6 weeks for post visit. If you had elevated blood pressure or 4th degree laceration, you will need to be seen in 2 weeks. Test Results: Test results from this visit will be discussed in further detail at your follow- up appointment, if applicable. Discharge Plan Admission Admit Date/Time: 09/01/23 18:50 Attending Provider: Julissa Garduno Primary Care Provider: Maria Raygoza NP Consulting Providers: Reta Monson NP Discharge Orders/Prescriptions Prescriptions: New labetalol 200 mg tablet 400 mg PO BID Qty: 60 3RF nifedipine [Procardia XL] 30 mg tablet extended release 24hr 30 mg PO DAILY Qty: 30 3RF ibuprofen 600 mg tablet 600 mg PO Q8H PRN (Reason: pain) Qty: 20 0RF No Action (DME) subcutaneous insulin pump Misc See Rx Instructions .Route Rx Instructions: As directed PNV Tabs 20-1 20 mg iron- 1 mg tablet 1 tab PO insulin aspart U-100 [Novolog U-100 Insulin aspart] 100 unit/mL solution 100 unit subcut DAILY Qty: 90 2RF Patient Comments: Insulin Pump Referrals / Follow Up: Maria Raygoza NP, DIE CUTTING MACHINE OPERATOR-C [Primary Care Provider] - Disposition Disposition (needs filled in before D/C Order can be placed): Home, Self Care
--- NOTE | 2023-09-05 15:22 | PCM.DC.SUM ---
Providers Date of Admission: 09/01/23 Primary Care Physician: MIA Spence Consultations 09/04/23 14:35 Consult: [employer] Librarian Routine Consulting Provider: Reta Monson NP Reason for Consult: support EMERGENT Consult: No MD Notified: Yes Date Notified: 09/04/23 Time Notified: 14:35 Method of Notification: Verbal Reason For Visit: VAGINAL DELIVERY Diagnosis Discharge Diagnosis (1) Hypertension: Status: Chronic Code(s): I10 - Essential (primary) hypertension (2) Vaginal delivery: Status: Acute Code(s): O80 - Encounter for full-term uncomplicated delivery Plan s/p PPD # 3 1. routine post delivery care 2. breast feeding- support given 3. rh positive 4. rubella immune 5. type 1 DM managed by insulin pump and Dr. Aleman 6. hypertension- not well controlled yet. will add procardia 30 xl now and if improved (140's/80's or less) will dc to [facility] status tonight. Medications at Discharge Home Medications vitamins no.163-iron bis-gly 20 mg-folate no.10 1 mg tablet (PNV Tabs 20-1) 1 tab PO 02/18/23 subcutaneous insulin pump 02/18/23 insulin aspart U-100 100 unit/mL subcutaneous solution (Novolog U-100 Insulin aspart) 100 unit subcut DAILY diabetes #90 mL 07/11/23 ibuprofen 600 mg tablet 600 mg PO Q8H PRN pain #20 tabs 09/05/23 labetalol 200 mg tablet 400 mg (2 x 200 mg) PO BID #60 tabs 09/05/23 nifedipine 30 mg tablet,extended release 24 hr (Procardia XL) 30 mg PO DAILY #30 tabs 09/05/23 Hospital Course Summary of Care Provided Hospital Course: THe patient was admitted on 09/02/23 for induction of labor secondary to type 1 dm. she progressed to complete by 40 hours of labor and delivered a viable male infant. On post day #0 her baby was taken to the NICU for monitoring and she became stressed over this causing bp elevation. The bloodd pressure was not resolved by ppd#1 or 2 and she was treated with labetalol 200 mg bid. By ppd#3 a second agent, procardia was given and this helped bring bp to a lower range and she was discharge to hotel status in stable condition. Physical Exam Const alert, oriented x3 and no apparent distress General Appearance: cooperative and comfortable Resp normal respiratory effort Cardio regular rate GI normal to inspection, nondistended, normoactive bowel sounds GI Narrative: uterus is firm below umbilicus Palpation: soft Back/Spine no CVA tenderness and thoraco-lumbar ROM normal Extremity normal to inspection, no clubbing, cyanosis or edema, no calf tenderness and no pedal edema Psych mental status grossly normal, thought process normal, cooperative, affect normal, speech normal, activity/motor behavior normal, denies homicidal ideation and denies suicidal ideation Weight / BMI Weight Weight: 153 lb 8 oz Body Mass Index (BMI) 28.0 ABG / Lab / Microbiology Data 09/04/23 09:30 09/04/23 09:30 Laboratory: Laboratory Results - last 24 hr 09/04/23 17:00: POC Glucose 128 H D/C Instructions Discharge Diet: No restrictions Discharge Activity: Return to Normal Activity, May Not Drive (while taking narcotic pain medications.) and May Shower May resume sexual activity in: 4-6 weeks Call your doctor if your incision/area has: Continuous Slow Oozing, Sudden Increased Bleeding, Increased Pain/ Swelling, Increased Redness and Foul Smelling Discharge Please Follow Up With: Sho Michaud DO When: Call [phone] to make an appointment with your doctor in 1 week for a bp check and 6 weeks for post visit. If you had elevated blood pressure or 4th degree laceration, you will need to be seen in 2 weeks. Meaningful Use Info Meaningful Use Meaningful Use Diagnoses (Choose all that apply): None applicable Ischemic Stroke Statin Dosing Therapy Reference: STATIN DOSE THERAPY REFERENCE: * Patients > 75 years receive moderate or high dose statin therapy. * Patients 75 years or YOUNGER should receive HIGH intensity statin dose unless contraindicated. You will be required to document reason for non-treatment if statin daily dose does not meet guidelines. HIGH DOSE STATIN THERAPY DAILY Atorvastatin > than or = to 40 mg Rosuvastatin > than or = to 20 mg Amlodipine + Atorvastatin > than or = to 2.5/40 mg Ezetimibe + Simvastatin 10/80 mg Simvastatin 80mg Discharge Plan Admission Admit Date/Time: 09/01/23 18:50 Attending Provider: Julissa Garduno Primary Care Provider: Maria Raygoza NP Consulting Providers: Reta Monson NP Discharge Orders/Prescriptions Prescriptions: New labetalol 200 mg tablet 400 mg PO BID Qty: 60 3RF nifedipine [Procardia XL] 30 mg tablet extended release 24hr 30 mg PO DAILY Qty: 30 3RF ibuprofen 600 mg tablet 600 mg PO Q8H PRN (Reason: pain) Qty: 20 0RF No Action (DME) subcutaneous insulin pump Misc See Rx Instructions .Route Rx Instructions: As directed PNV Tabs 20-1 20 mg iron- 1 mg tablet 1 tab PO insulin aspart U-100 [Novolog U-100 Insulin aspart] 100 unit/mL solution 100 unit subcut DAILY Qty: 90 2RF Patient Comments: Insulin Pump Referrals / Follow Up: Maria Raygoza NP, TRIPE FINISHER-C [Primary Care Provider] - Disposition Disposition (needs filled in before D/C Order can be placed): Home, Self Care
--- NOTE | 2023-09-12 13:24 | CASEMGMT ---
Social Work Assessment Labor and Delivery Unit Patient Address: [place] [address] Phone number: [phone] Date of Referral: 09/03/23 Time of Referral:? 232 Referred By: Dr. Michaud Date of Intervention: ??09/05/23 Time of Intervention:? 1230 Reason for Referral:? relationship dynamic, anxiety Sw completed chart review and acknowledges social work consult due to maternal mental health and due to current relationship. Sw presented to bedside and introduced self to mother of baby (LORI Roque) and visitor who was present. MOB states that visitor is her mom and it is okay for sw to continue with completion of assessment. History obtained from: medical records, MARYSOL Household composition: Currently residing in the family home is MOB, father of baby (PETER- Laci) and Laci's (Basim) and their two older children (13 and 9 years old). [place] baby will also reside in the home when medically ready for discharge. MOB denies any issues or concerns with housing at this time. Patient's parent/guardian status:?MOB states that she and PETER met at work about a year ago. MOB states that one day she and PETER and his , Basim, went fishing when FOChastity said to MOB that he bet her she would not kiss his . MOB stated that she took him up on that dare and one thing led to the next. MOB states that she, HOLLYB and Basim are in a throuple. MOB states that even though she is the biological mother to the baby, all three of them will be parents to baby. MOB states that they all sleep in the same bed together and are all emotionally invested in the relationship. MOB denies any issues or concerns with domestic violence or intimate partner violence. ? Medical History: ?MARYSOL is 28 yerar old female who is 1, para 0- now 1 following labor and delivery of . MARYSOL received routine care during with [facility]. MARYSOL presented to hospital for an induction of labor at 37 weeks gestation. Baby boy, named Francesco, was born on 09[birth year] weighing 6lb 13oz with apgars of 9 and 10 at one and five minutes of life, respectfully. Baby required admission to [facility] due to hypoglycemia. MOB states that the insurance commissioner will be Dr. Mcgee. MOB is working on breast feeding. Educational Status:? MOB states that she completed high school and did require an IEP for school. Patient's MOB states that MOB needed extra time for her [place] assignments. 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 FOB works for a [employer] and Cam is also employed. Infant Supplies:?? Parents have obtained all necessary baby supplies, including: car seat, safe sleep space, clothes, diapers and wipes. Childcare/Caregiver(s):? MOB states that she will be the primary caregiver to baby along with FOB and Cam. Transportation:?? MOB states that she has her drivers license and reliable means of transportation, no barriers at this time. Programs/Agencies Involved: MARYSOL states that she has insurance through [employer] ([employer]) and wants to get connected to [facility]. Jaye provided MARYSOL with information on her local [facility] office and other community resources that are available to her. ??? Children Services/Legal Issues:?No history of children services involvement. No issues or concerns warranting referral to be made at this time. ?? Behavioral Health Issues: ??Mental Health History:?MARYSOL denies mental health diagnoses for herself of FOChastity. Sw asked MARYSOL about any history of anxiety. MARYSOL states that she may have had anxiety when she was younger, but does not believe that this is anything that she has struggled with since she was in high school. ?? Substance Use History:??MOB denies substance use prior to and during . Family History:??MOB denies family history of addiction, substance use and significant mental health diagnoses. ??? Drug Screens: ?Nno drug screens observed in chart review. ? Family/Social Stressors:? MOB denies any issues, concerns or stressors at this time. Support Systems: MARYSOL states that FOB and Cam are her biggest supports at this time along with her mom. Depression/Shaken Baby/Safe Sleeping:? Sw educated MOB on signs and symptoms of mood and anxiety disorders. Sw encouraged MOB to reach out to supports or mental health professionals if she feels as though she is struggling during this period. MOB expressed understanding and agreement. MOB states that if she were to struggle with her mental health during this time that FOB and Cam would be able to recognize that. Sw educated MOB on shaken baby prevention and ABCs of safe sleep. MOB expressed understanding. ASSESSMENT:? MOB laying in bed pumping while sw met with her and completed assessment. MOB in a relationship with a couple, who also report to be caregivers to baby. Baby is admitted to [facility] and MOB is actively visiting and is active in care. MOB states to obtaining all necessary baby supplies for baby and has natural supports in place. MOB made and maintained eye contact throughout completion of assessment. MOB was pleasant and engaged openly in conversation. MOB open to discussing her relationship with Cam and FOB. Although initial consult for sw was for maternal mental health- anxiety, MOB expresses no concerns with this for quite some time. PLAN:?MOB and baby to be discharged when medically ready. ?No other services requested or indicated. Alek Hancock, [employer], MANAGER LAW
== END 2023-09-05 15:45 | disposition home or self-care (01) | DRG 560 ==
PROVIDERS: Advanced Practice Midwife; Admitting Provider Obstetrics & Gynecology; PCP Nurse Practitioner Primary Care; Visit Provider Obstetrics & Gynecology
DX: O24.02 Pre-existing type 1 diabetes mellitus, in childbirth (principal); Z37.0 Single live birth; O11.4 Pre-existing hypertension with pre-eclampsia, complicating childbirth; Z79.4 Long term (current) use of insulin; F17.210 Nicotine dependence, cigarettes, uncomplicated; O76 Abnormality in fetal heart rate and rhythm complicating labor and delivery; O70.0 First degree perineal laceration during delivery; O99.334 Smoking (tobacco) complicating childbirth; Z3A.37 37 weeks gestation of pregnancy; Z96.41 Presence of insulin pump (external) (internal)
CPT/HCPCS: 59025; 59050; 76819; 80053; 82565; 82962; 84450; 84460; 84550; 85025; 85027; 86780; 86850; 86900; 86901; 87081; 99221; J7120; G0378; J2405